=== PATIENT | male | born 1930 | race Caucasian/White ===

== ENCOUNTER 2017-03-12 21:42 | Inpatient (IN) | payer MEDICARE ==
[~2017-03-12] VITALS: Ht 172.7 cm; Wt 102.4 kg
[~2017-03-12 21:42] MED LIST: ATOR20TA42 PO; FELO2.5T PO; FERR324T4 PO; FISH1000 PO; GLUCTAB PO; HYDR-2768 PO; LISI40TA PO; METF-324 PO; TAB-TAB PO
[2017-03-12 22:05] VITALS: BP 179/69; PULSE 60; RESP 18; O2SAT 95
[2017-03-12] MEDS ORDERED: SODIUM CHLOR 0.9% 1000 ML INJ 1,000 ML IV SCH (22:06)
--- NOTE | 2017-03-12 22:06 | PD ---
HPI Chief Complaint: GI Complaint Time Seen by Provider: 21:55 Travel History International Travel<30 days: No Contact w/Intl Traveler<30days: No Traveled to known affect area: No History of Present Illness HPI PATIENT COMPLAINTS OF EPIG AREA PAIN, 11/14, NONRADIATING, ONSET ABOUT 1 WEEK AGO ORIGINALLY....AT FIRST SEEMED TO IMPROVE WITH TUMS, BUT TODAY HE TOOK 5 PEPCID AND DID NOT GET RELIEF...NO DIARRHEA, ONLY HAD A SMALL HARD BM TODAY. PATIENT DENIES ANY MORE ALLEVIATING/AGGRAVATING FACTORS PCP: DR CAPUTO ALL:NKDA PMHX:DM, HTN, HYPERCHOL, UMBILICAL HERNIA, HARD OF HEARING REQUIRES HEARING AID PSHX: UMBILICAL HERNIA REPAIR MANY YEARS AGO PFSH Past Medical History Blood Disorders: No Cancer: No Cardiovascular Problems: Yes High Cholesterol: Yes Diabetes: Yes Diminished Hearing: Yes ([place] Genitourinary: No Hypertension: Yes Immune Disorder: No Musculoskeletal: No Neurologic: No Psychiatric: No Reproductive: No Respiratory: No Past Surgical History Abdominal Surgery: Yes (UMBILICAL HERNIA REPAIR.) Cardiac Surgery: Yes (angioplasty/cardiac cath) Other Surgery: Yes (ANGIOPLASTY-1995.) Social History Alcohol Use: No Tobacco Use: No Substance Use: No Allergies-Medications (Allergen,Severity, Reaction): Coded Allergies: No Known Allergies (Unverified , 03/12/17) Reported Meds & Prescriptions Reported Meds & Active Scripts Active Active Prescriptions or Reported Medications Unobtainable Review of Systems General / Constitutional: No: Fever Eyes: No: Visual changes HENT: No: Headaches Cardiovascular: No: Chest Pain or Discomfort Respiratory: No: Shortness of Breath Gastrointestinal: Positive: Nausea, Abdominal Pain Genitourinary: No: Dysuria Musculoskeletal: No: Pain Skin: No Rash Neurologic: No: Weakness Psychiatric: No: Depression Endocrine: No: Polydipsia Hematologic/Lymphatic: No: Easy Bruising Physical Exam Narrative GENERAL: SKIN: Warm and dry. HEAD: Atraumatic. Normocephalic. EYES: Pupils equal and round. No scleral icterus. No injection or drainage. ENT: No nasal bleeding or discharge. Mucous membranes pink and moist. NECK: Trachea midline. No JVD. CARDIOVASCULAR: Regular rate and rhythm. RESPIRATORY: No accessory muscle use. Clear to auscultation. Breath sounds equal bilaterally. GASTROINTESTINAL: Abdomen OBESE, soft, RUQ/EPIG TTP, NO REBOUND/GUARDING/ RIGIDITY MUSCULOSKELETAL: Extremities without clubbing, cyanosis, or edema. No obvious deformities. NEUROLOGICAL: Awake and alert. No obvious cranial nerve deficits. Motor grossly within normal limits. Five out of 5 muscle strength in the arms and legs. Normal speech. PSYCHIATRIC: Appropriate mood and affect; insight and judgment normal. Data Data Last Documented VS Vital Signs Date Time Temp Pulse Resp B/P (MAP) Pulse Ox O2 Delivery O2 Flow Rate FiO2 03/12/17 23:21 55 16 185/83 (117) 95 Room Air Orders Orders Complete Blood Count With Diff (03/12/17 22:06) Comprehensive Metabolic Panel (03/12/17 22:06) Lipase (03/12/17 22:06) Urinalysis - C+S If Indicated (03/12/17 22:06) Ct Abd/Pel W/O Iv Contrast (03/12/17 22:06) Us Abdomen Gallbladder (03/12/17 ) Iv Access Insert/Monitor (03/12/17 22:06) Ecg Monitoring (03/12/17 22:06) Oximetry (03/12/17 22:06) NPO (03/12/17 22:06) Morphine Inj (Morphine Inj) (03/12/17 22:15) Ondansetron Inj (Zofran Inj) (03/12/17 22:15) Sodium Chlor 0.9% 1000 Ml Inj (Ns 1000 M (03/12/17 22:06) Electrocardiogram (03/12/17 22:06) Ckmb (Isoenzyme) Profile (03/12/17 22:06) Troponin I (03/12/17 22:06) CKMB (03/12/17 22:30) CKMB% (03/12/17 22:30) Metronidazole 500 Mg Inj (Flagyl 500 Mg (03/12/17 23:30) Piperacil-Tazo 3.375 Gm Premix (Zosyn 3. (03/12/17 23:30) Labs Laboratory Tests Test 03/12/17 22:30 White Blood Count 7.4 TH/MM3 Red Blood Count 4.30 MIL/MM3 Hemoglobin 12.8 GM/DL Hematocrit 38.1 % Mean Corpuscular Volume 88.6 FL Mean Corpuscular Hemoglobin 29.8 PG Mean Corpuscular Hemoglobin Concent 33.6 % Red Cell Distribution Width 13.2 % Platelet Count 336 TH/MM3 Mean Platelet Volume 8.4 FL Neutrophils (%) (Auto) 58.2 % Lymphocytes (%) (Auto) 31.9 % Monocytes (%) (Auto) 5.3 % Eosinophils (%) (Auto) 4.1 % Basophils (%) (Auto) 0.5 % Neutrophils # (Auto) 4.3 TH/MM3 Lymphocytes # (Auto) 2.4 TH/MM3 Monocytes # (Auto) 0.4 TH/MM3 Eosinophils # (Auto) 0.3 TH/MM3 Basophils # (Auto) 0.0 TH/MM3 CBC Comment DIFF FINAL Differential Comment Blood Urea Nitrogen 27 MG/DL Creatinine 1.70 MG/DL Random Glucose 125 MG/DL Total Protein 7.5 GM/DL Albumin 3.1 GM/DL Calcium Level 8.9 MG/DL Alkaline Phosphatase 312 U/L Aspartate Amino Transf (AST/SGOT) 237 U/L Alanine Aminotransferase (ALT/SGPT) 204 U/L Total Bilirubin 1.7 MG/DL Sodium Level 135 MEQ/L Potassium Level 3.8 MEQ/L Chloride Level 100 MEQ/L Carbon Dioxide Level 25.8 MEQ/L Anion Gap 9 MEQ/L Estimat Glomerular Filtration Rate 38 ML/MIN Total Creatine Kinase 283 U/L Creatine Kinase MB 1.2 NG/ML Troponin I LESS THAN 0.02 NG/ML Lipase 162 U/L [facility] Medical Decision Making Medical Screen Exam Complete: Yes Emergency Medical Condition: Yes Medical Record Reviewed: Yes Interpretation(s) SINUS CYNTHIA 56, FIRST DEGREE AV BLOCK, NONSPEC STT CHANGES, NO STEMI PATTERN Differential Diagnosis PANCREATITIS V ATYPICAL NE V HEPATITIS V GASTROENTERITIS V COLITIS V DIVERTIC Narrative Course NO EVIDENCE OF PANCREATITIS, NO ELEVATED TROPONIN FOUND...E/O BILIARY OBSTRUCTION, AND E/O CHOLECYSTITIS. PATIENT WILL BE ADMITTED TO [facility], KEPT NPO, GIVEN IV ZOSYN/FLAGYL AND PAIN MEDICATION. Diagnosis Primary Impression: Choledocholithiasis with acute cholecystitis with obstruction Admitting Information Admitting Physician Requests: Admit Scripts Unable to Obtain Active Prescriptions or Reported Meds Red Jerome MD Mar 12, 2017 22:06
[2017-03-12] MEDS ORDERED: MORPHINE SULFATE 4 MG/ML INJ IV PUSH ONE (22:15)
[2017-03-12] MEDS ORDERED: ONDANSETRON HCL 4 MG/2 ML VIAL IVP ONE (22:15)
[2017-03-12 22:33] LABS: AUTOMATED NEUTROPHIL # 4.3 TH/MM3 (1.8-7.7); BASOPHIL % 0.5 % (0.0-2.0); EOSINOPHIL # 0.3 TH/MM3 (0-0.4); EOSINOPHIL % 4.1 % (0.0-4.0); HEMATOCRIT 38.1 % (39.0-51.0); HEMO FLAGS DIFF FINAL; LYMPH % 31.9 % (9.0-44.0); LYMPHOCYTE # 2.4 TH/MM3 (1.0-4.8); MEAN CELL VOLUME 88.6 FL (80.0-100.0); MEAN CORPUSCULAR HEMOGLOBIN 29.8 PG (27.0-34.0); MEAN CORPUSCULAR HGB CONC 33.6 % (32.0-36.0); MONO % 5.3 % (0.0-8.0); NEUT % 58.2 % (16.0-70.0); PLATELET COUNT 336 TH/MM3 (150-450); RED CELL DISTRIBUTION WIDTH 13.2 % (11.6-17.2); WHITE BLOOD COUNT 7.4 TH/MM3 (4.0-11.0)
[2017-03-12 22:41] LABS: CHLORIDE 100 MEQ/L (98-107); POTASSIUM 3.8 MEQ/L (3.5-5.1); SODIUM (NA) 135 MEQ/L (136-145)
[2017-03-12 22:45] LABS: ANION GAP 9 MEQ/L (5-15); BICARBONATE 25.8 MEQ/L (21.0-32.0); BLOOD UREA NITROGEN 27 MG/DL (7-18)
[2017-03-12 22:48] VITALS: O2SAT 96
[2017-03-12 22:48] LABS: ALT (GPT) 204 U/L (12-78); AST (GOT) 237 U/L (15-37); GLOMERULAR FILTRATION RATE 38 ML/MIN (>89)
[2017-03-12 22:50] LABS: TOTAL BILIRUBIN ADULT 1.7 MG/DL (0.2-1.0)
[2017-03-12 22:51] LABS: ALKALINE PHOSPHATASE 312 U/L (45-117); CREATINE KINASE 283 U/L (39-308)
[2017-03-12 23:03] LABS: CKMB 1.2 NG/ML (0.5-3.6)
--- NOTE | 2017-03-12 23:06 | RADRPT ---
EXAM DATE/TIME: 03/12/2017 22:27 [facility] COMPARISON: No previous studies available for comparison. INDICATIONS : Abdominal pain. ORAL CONTRAST: No oral contrast ingested. RADIATION DOSE: 27.84 CTDIvol (mGy) ; High dose protocol; Patient body habitus MEDICAL HISTORY : Hypertension. Hernia, umbilical. SURGICAL HISTORY : Umbilical hernia repair. ENCOUNTER: Initial ACUITY: 1 day PAIN SCALE: 8/10 LOCATION: abdomen TECHNIQUE: Volumetric scanning of the abdomen and pelvis was performed. Using automated exposure control and ad justment of the mA and/or kV according to patient size, radiation dose was kept as low as reasonably achievable to obtain optimal diagnostic quality images. DICOM format image data is available electro nically for review and comparison. FINDINGS: There are multiple gallstones in the region of the distal common bile duct with the largest measuring 8 mm. The common bile duct is prominent in size and likely is obstructed. There is also thickening o f the wall of the gallbladder and pericholecystic fluid and inflammatory change suggesting acute chol ecystitis also. The gallbladder is filled with calcified gallstones. Uncomplicated colonic diverticul osis is noted. No acute diverticulitis is noted. There are tiny 4 mm calcified nonobstructing bilater al renal calculi. No acute obstructive uropathy is noted. There are ventral abdominal wall hernias co ntaining only fat. The appendix is normal. The urinary bladder is unremarkable. Peripheral calcificat ion is noted within the prostate gland posteriorly. CONCLUSION: 1. Multiple gallstones in the region of the distal common bile duct with the largest measuring 8 mm. The common bile duct is prominent in size and likely is obstructed. 2. Thickening of the wall of the gallbladder and pericholecystic fluid and inflammatory change sugges ting acute cholecystitis. Clinical correlation is recommended. 3. Cholelithiasis. 4. Uncomplicated colonic diverticulosis. 5. Calcified nonobstructing bilateral renal calculi. 6. Ventral abdominal wall hernias containing only fat. 7. Posterior peripheral calcification of the prostate gland. Temo Francois MD on March 12, 2017 at 22:58 Board Certified Radiologist. This report was verified electronically.
[2017-03-12 23:21] VITALS: BP 185/83; PULSE 55; RESP 16; O2SAT 95
--- NOTE | 2017-03-12 23:25 | RADRPT ---
EXAM DATE/TIME: 03/12/2017 22:57 [facility] COMPARISON: CT ABDOMEN & PELVIS W/O CONTRAST, March 12, 2017, 22:27. INDICATIONS : Right upper quadrant pain. Abnormal abdomen CT demonstrating cholelithiasis as well as apparent stone s in the distal common bile duct with biliary ductal dilatation. MEDICAL HISTORY : Hypercholesterolemia. Hypertension. Gastroesophageal reflux disease. Diabetes. SURGICAL HISTORY : Angioplasty. Umbilical hernia repair. Cardiac cath. ENCOUNTER: Initial ACUITY: 1 week PAIN SCORE: 6/10 LOCATION: Right upper quadrant MEASUREMENTS: LIVER: 20.3 cm length COMMON DUCT: 10 mm RIGHT KIDNEY: 11.0 x 5.2 x 5.0 cm FINDINGS: LIVER: The liver is enlarged measuring up to 20 cm with diffuse increased echogenicity. There is apparent mi ld central intrahepatic biliary duct dilatation. COMMON DUCT: Prominent measuring up to 10 mm with no intraluminal mass or stone visualized. GALLBLADDER: Multiple echogenic gallstones layering dependently with areas of posterior shadowing. There is mild w all thickening measuring up to 6 mm a small amount of pericholecystic fluid. The patient had a negati ve sonographic Zuñiga's sign. PANCREAS: The visualized portions are within normal limits. RIGHT KIDNEY: No evidence of hydronephrosis, stone, or mass. CONCLUSION: 1. Cholelithiasis with mild gallbladder wall thickening and small amount of pericholecystic fluid. Th ere was no sonographic Zuñiga's sign. 2. Prominent common bile duct measuring 10 mm with no filling defects identified in the visualized po rtion of the duct. The apparent stones in the distal duct could not be visualized. There is mild prom inence of the central intrahepatic biliary system as well. 3. Enlarged liver with hepatic steatosis. Dez Sexton MD on March 12, 2017 at 23:17 Board Certified Radiologist. This report was verified electronically.
[2017-03-12] MEDS ORDERED: metroNIDAZOLE 500 MG INJ 100 ML IV ONE (23:30)
[2017-03-12] MEDS ORDERED: CLON0.1T PO (23:56)
[2017-03-12] MEDS ORDERED: KLOR8TAB PO (23:56)
[2017-03-12] MEDS ORDERED: FENO54TA PO (23:56)
[2017-03-12] MEDS ORDERED: FELO10TA PO (23:56)
[2017-03-12] MEDS ORDERED: GLIM1TAB PO (23:56)
[2017-03-12] MEDS ORDERED: LISI40TA PO (23:56)
[2017-03-12] MEDS ORDERED: ATOR10TA15 PO (23:56)
[2017-03-12] MEDS ORDERED: POTA10TA15 PO (23:56)
[2017-03-12] MEDS ORDERED: TRIA37.5 PO (23:57)
[2017-03-13] VITALS (11 sets, daily range): BP systolic 134–183; BP diastolic 63–94; PULSE 42–62; RESP 16–20; TEMP 97.4–99.2; O2SAT 93–98
[2017-03-13] MEDS ORDERED: MORPHINE SULFATE 2 MG/ML INJ IV PUSH PRN
[2017-03-13] MEDS ORDERED: SODIUM CHLORIDE 0.9% FLUSH 10 ML FLUSH IV FLUSH PRN
[2017-03-13] MEDS ORDERED: GLUCAGON 1 MG/ML VIAL OTHER PRN
[2017-03-13] MEDS ORDERED: PIPERACIL-TAZO 3.375 GM PREMIX 50 ML IV ONE
[2017-03-13] MEDS ORDERED: NALOXONE HCL 0.4 MG/ML AMP IV PUSH PRN
[2017-03-13] MEDS ORDERED: DEXTROSE 50% IN WATER 50 ML VIAL(D50) IV PUSH PRN
[2017-03-13] MEDS: DEXT 5%-NACL 0.45% 1000 ML INJ 1,000 ML IV SCH ×3 (00:12→23:50)
[2017-03-13 00:52] LABS: BLOOD, URINE LARGE (NEG); GLUCOSE,URINE NEG (NEG); KETONE, URINE NEG (NEG); NITRITE,URINE NEG (NEG)
[2017-03-13 00:56] LABS: URINE COLOR YELLOW (YELLW/STRAW)
[2017-03-13 00:57] LABS: BACTERIA, URINE MANY /hpf; COMMENT (UR) CULTURE INDICATED; CULTURE IF INDICATED CULTURE INDICATED; SQUAMOUS EPITHELIAL CELL URINE 0-5 /hpf (0-5); WBC, URINE 15-19 /hpf (0-5)
[2017-03-13] MEDS ORDERED: ENALAPRILAT 2.5 MG/2 ML VIAL IV PUSH PRN (01:45)
[2017-03-13] MEDS: PIPERACIL-TAZO 4.5 GM PREMIX 100 ML IV SCH ×2 (06:04→17:46)
[2017-03-13 06:10] LABS: AUTOMATED NEUTROPHIL # 2.9 TH/MM3 (1.8-7.7); BASOPHIL # 0.1 TH/MM3 (0-0.2); BASOPHIL % 1.7 % (0.0-2.0); EOSINOPHIL # 0.3 TH/MM3 (0-0.4); EOSINOPHIL % 4.7 % (0.0-4.0); HEMATOCRIT 35.1 % (39.0-51.0); HEMO FLAGS DIFF FINAL; LYMPH % 30.3 % (9.0-44.0); LYMPHOCYTE # 1.7 TH/MM3 (1.0-4.8); MEAN CELL VOLUME 88.1 FL (80.0-100.0); MONO % 8.6 % (0.0-8.0); NEUT % 54.7 % (16.0-70.0); PLATELET COUNT 281 TH/MM3 (150-450); RED BLOOD COUNT 3.99 MIL/MM3 (4.50-5.90); RED CELL DISTRIBUTION WIDTH 12.9 % (11.6-17.2); WHITE BLOOD COUNT 5.5 TH/MM3 (4.0-11.0)
[2017-03-13 06:18] LABS: CHLORIDE 104 MEQ/L (98-107); POTASSIUM 3.9 MEQ/L (3.5-5.1); SODIUM (NA) 138 MEQ/L (136-145)
[2017-03-13 06:32] LABS: ALKALINE PHOSPHATASE 265 U/L (45-117); ALT (GPT) 196 U/L (12-78); ANION GAP 9 MEQ/L (5-15); AST (GOT) 236 U/L (15-37); BICARBONATE 24.7 MEQ/L (21.0-32.0); BLOOD UREA NITROGEN 26 MG/DL (7-18); GLOMERULAR FILTRATION RATE 41 ML/MIN (>89); TOTAL BILIRUBIN ADULT 2.1 MG/DL (0.2-1.0)
[2017-03-13] MEDS ORDERED: ONDANSETRON HCL 4 MG/2 ML VIAL IV PUSH PRN (08:45)
[2017-03-13] MEDS ORDERED: ACETAMINOPHEN 325 MG TAB PO PRN (08:45)
[2017-03-13] MEDS: LISINOPRIL 20 MG TAB PO SCH (09:00)
[2017-03-13] MEDS: SODIUM CHLORIDE 0.9% FLUSH 10 ML FLUSH IV FLUSH SCH ×2 (09:00→19:49)
[2017-03-13] MEDS ORDERED: PNEUMOCOCCAL POLYVALENT INJ 25 MCG/0.5 ML SYR IM ONE (09:00)
--- NOTE | 2017-03-13 09:49 | HHI.HP ---
[facility] Manuel Gilliland MD Admission Diagnosis ACUTE CHOLECYSTITIS WITH CHOLEDOCHOLITHIASIS Diagnoses: Travel History International Travel<30 Days: No Contact w/Intl Traveler <30 Da: No Traveled to Known Affected Are: No History of Present Illness 86-year-old male being admitted for suspected common bile duct obstruction. Patient was in his usual state of health until about 2 days ago when he began experiencing epigastrium and right upper quadrant abdominal pain that was sharp and intermittent. The pain had eased up and came back again last night in the evening while he was resting Topamax intensity of 10 out of 10. He took some Tums to no avail and was not able to identify any other exacerbating or alleviating factors. He decided to come to emergency room at that time. He denies any nausea vomiting fevers chills or diarrhea. He thinks that his bowel movements have slightly slowed down from about once a day to about once every 2 days but denies any changes in the consistency of the stool nor does he see any melena or bright red blood per rectum. Patient states he still has gallbladder and that he had an endoscopy or a PillCam study done couple of years ago and he claims they found nothing. He says he has had an appendectomy when he was much younger. He has a history of a upper GI bleed in 2006 likely secondary to some duodenitis and gastritis, stains were negative for H. pylori. Review of Systems Except as stated in HPI: all other systems reviewed are Neg Past Family Social History Past Medical History HTN, upper GI bleed Past Surgical History appendectomy Allergies: Coded Allergies: No Known Allergies (Unverified , 03/12/17) Family History No family history of any colorectal cancers or significant GI issues Social History Denies ever smoking, illicit drug use. Reports very light, occasional, social alcohol use Physical Exam Vital Signs Vital Signs Date Time Temp Pulse Resp B/P (MAP) Pulse Ox O2 Delivery O2 Flow Rate FiO2 03/13/17 08:00 98.3 42 20 134/63 (86) 93 03/13/17 03:27 51 03/13/17 02:21 97.9 62 16 143/71 (95) 98 03/13/17 01:28 52 16 146/77 (100) 95 Room Air 03/13/17 00:48 51 18 183/94 (123) 95 03/12/17 23:21 55 16 185/83 (117) 95 Room Air 03/12/17 22:53 16 03/12/17 22:48 96 Room Air 03/12/17 22:05 60 18 179/69 (105) 95 Room Air Physical Exam VS: Afebrile GENERAL: Middle-aged male, slightly jaundiced, lying in bed, awake, no acute distress SKIN: Warm and dry. EYES: No scleral icterus. No injection or drainage. ENT: No nasal bleeding or discharge. Mucous membranes pink and moist. CARDIOVASCULAR: Regular rate and rhythm. no murmurs RESPIRATORY: No accessory muscle use. Clear to auscultation. Breath sounds equal bilaterally. GASTROINTESTINAL: Abdomen soft, has epigastrium tenderness to palpation as well as over right upper quadrant, all other quadrants are nontender to palpation, no rebound all throughout Extremities: No clubbing, cyanosis, or edema. No obvious deformities. MUSCULOSKELETAL: Extremities without clubbing, cyanosis, or edema. No obvious deformities. grossly intact ROM with 5/5 strength in upper and lower extremities proximally NEUROLOGICAL: Awake and alert. No obvious cranial nerve deficits. No facial droop nor slurred speech noted. PSYCHIATRIC: Appropriate mood and affect; insight and judgment normal. Laboratory Laboratory Tests Test 03/12/17 22:30 03/13/17 00:40 03/13/17 05:35 White Blood Count 7.4 5.5 Red Blood Count 4.30 3.99 Hemoglobin 12.8 11.6 Hematocrit 38.1 35.1 Mean Corpuscular Volume 88.6 88.1 Mean Corpuscular Hemoglobin 29.8 29.0 Mean Corpuscular Hemoglobin Concent 33.6 33.0 Red Cell Distribution Width 13.2 12.9 Platelet Count 336 281 Mean Platelet Volume 8.4 9.3 Neutrophils (%) (Auto) 58.2 54.7 Lymphocytes (%) (Auto) 31.9 30.3 Monocytes (%) (Auto) 5.3 8.6 Eosinophils (%) (Auto) 4.1 4.7 Basophils (%) (Auto) 0.5 1.7 Neutrophils # (Auto) 4.3 2.9 Lymphocytes # (Auto) 2.4 1.7 Monocytes # (Auto) 0.4 0.5 Eosinophils # (Auto) 0.3 0.3 Basophils # (Auto) 0.0 0.1 CBC Comment DIFF FINAL DIFF FINAL Differential Comment Blood Urea Nitrogen 27 26 Creatinine 1.70 1.60 Random Glucose 125 126 Total Protein 7.5 6.2 Albumin 3.1 2.5 Calcium Level 8.9 8.2 Alkaline Phosphatase 312 265 Aspartate Amino Transf (AST/SGOT) 237 236 Alanine Aminotransferase (ALT/SGPT) 204 196 Total Bilirubin 1.7 2.1 Sodium Level 135 138 Potassium Level 3.8 3.9 Chloride Level 100 104 Carbon Dioxide Level 25.8 24.7 Anion Gap 9 9 Estimat Glomerular Filtration Rate 38 41 Total Creatine Kinase 283 Creatine Kinase MB 1.2 Troponin I LESS THAN 0.02 Lipase 162 174 Urine Color YELLOW Urine Turbidity CLOUDY Urine pH 6.0 Urine Specific [place] 1.020 Urine Protein 100 Urine Glucose (UA) NEG Urine Ketones NEG Urine Occult Blood LARGE Urine Nitrite NEG Urine Bilirubin NEG Urine Leukocyte Esterase TRACE Urine RBC 20-24 Urine WBC 15-19 Urine Squamous Epithelial Cells 0-5 Urine Bacteria MANY Microscopic Urinalysis Comment CULTURE INDICATED Date/Time Source Procedure Growth Status 03/13/17 00:40 Urine Clean Catch Urine Culture Pending Received Result Diagram: 03/13/17 0535 03/13/17 0535 Imaging Last Impressions Abdomen/Pelvis CT 03/12/172205 Signed Impressions: Service Date/Time: Sunday, March 12, 2017 22:27 - CONCLUSION: 1. Multiple gallstones in the region of the distal common bile duct with the largest measuring 8 mm. The common bile duct is prominent in size and likely is obstructed. 2. Thickening of the wall of the gallbladder and pericholecystic fluid and inflammatory change suggesting acute cholecystitis. Clinical correlation is recommended. 3. Cholelithiasis. 4. Uncomplicated colonic diverticulosis. 5. Calcified nonobstructing bilateral renal calculi. 6. Ventral abdominal wall hernias containing only fat. 7. Posterior peripheral calcification of the prostate gland. Temo Francois MD Gall Bladder Ultrasound 03/12/17 0000 Signed Impressions: Service Date/Time: Sunday, March 12, 2017 22:57 - CONCLUSION: 1. Cholelithiasis with mild gallbladder wall thickening and small amount of pericholecystic fluid. There was no sonographic Zuñiga's sign. 2. Prominent common bile duct measuring 10 mm with no filling defects identified in the visualized portion of the duct. The apparent stones in the distal duct could not be visualized. There is mild prominence of the central intrahepatic biliary system as well. 3. Enlarged liver with hepatic steatosis. MD Glen Ng VTE Risk Assessment Caprini VTE Risk Assessment: Mod/High Risk (score >= 2) Caprini Risk Assessment Model Point Value = 1 Point Value = 2 Point Value = 3 Point Value = 5 Age 41-60 Minor surgery BMI > 25 kg/m2 Swollen legs Varicose veins or History of unexplained or recurrent spontaneous Oral contraceptives or hormone replacement Sepsis (< 1 month) Serious lung disease, including pneumonia (< 1 month) Abnormal pulmonary function Acute myocardial infarction Congestive heart failure (< 1 month) History of inflammatory bowel disease Medical patient at bed rest Age 61-74 Arthroscopic surgery Major open surgery (> 45 min) Laparoscopic surgery (> 45 min) Malignancy Confined to bed (> 72 hours) Immobilizing plaster cast Central venous access Age >= 75 History of VTE Family history of VTE Factor V Leiden Prothrombin [id number] Lupus anticoagulant Anticardiolipin antibodies Elevated serum homocysteine Heparin-induced thrombocytopenia Other congenital or acquired thrombophilia Stroke (< 1 month) Elective arthroplasty Hip, pelvis, or leg fracture Acute spinal cord injury (< 1 month) Prophylaxis Regimen Total Risk Factor Score Risk Level Prophylaxis Regimen 0-1 Low Early ambulation 2 Moderate Order ONE of the following: *Sequential Compression Device (SCD) *Heparin 5000 units SQ BID 3-4 Higher Order ONE of the following medications: *Heparin 5000 units SQ TID *Enoxaparin/Lovenox 40 mg SQ daily (WT < 150 kg, CrCl > 30 mL/min) *Enoxaparin/Lovenox 30 mg SQ daily (WT < 150 kg, CrCl > 10-29 mL/min) *Enoxaparin/Lovenox 30 mg SQ BID (WT < 150 kg, CrCl > 30 mL/min) AND/OR *Sequential Compression Device (SCD) 5 or more Highest Order ONE of the following medications: *Heparin 5000 units SQ TID (Preferred with Epidurals) *Enoxaparin/Lovenox 40 mg SQ daily (WT < 150 kg, CrCl > 30 mL/min) *Enoxaparin/Lovenox 30 mg SQ daily (WT < 150 kg, CrCl > 10-29 mL/min) *Enoxaparin/Lovenox 30 mg SQ BID (WT < 150 kg, CrCl > 30 mL/min) AND *Sequential Compression Device (SCD) Assessment and Plan Assessment and Plan Acute choledocholithiasis with suspected obstruction - CT and GBUS showing CBD dilation at least 8 to 10 mm - Gastroenterology has already been contacted, transferring patient to [facility] for possible ERCP this a.m. - Continue Zosyn - Continue IV fluids, maintain nothing by mouth except by mouth meds status - repeat LFTs, bili elevated more this AM - I attempted to and been only reviewed the CT scan myself but soft was not loading at this time. We'll try again later. - IV pain meds, monitor resp status. RIVER - Possibly severe to dehydration and decreased by mouth intake - Improving since admission, repeat BMP in a.m. HTN - resume home BP meds tonight after ERCP - continue vasotec prn hi BPs Given likelihood of procedure will stick with SCDs for DVT prevention. Addendum: My independent review the CT scan shows the patient has at least moderate constipation, will start MiraLAX to minimize any worsening of his abdominal pain simply due to increased intra-abdominal pressure from the stool. Physician Certification 2 Midnight Certification Type: Admission for Inpatient Services Order for Inpatient Services The services are ordered in accordance with Medicare regulations or non- Medicare payer requirements, as applicable. In the case of services not specified as inpatient-only, they are appropriately provided as inpatient services in accordance with the 2-midnight benchmark. Estimated LOS (days): 2 2 days is the estimated time the patient will need to remain in the hospital, assuming treatment plan goals are met and no additional complications. Post-Hospital Plan: [facility] Errol Euceda MD Mar 13, 2017 09:49
[2017-03-13 10:12] LABS: INTERNATIONAL NORMALIZED RATIO 1.1 RATIO; PROTHROMBIN TIME - PATIENT 11.6 SEC (9.8-11.6)
--- NOTE | 2017-03-13 11:58 | PD.CONS ---
cc: Marissa Phillips MD HPI Service General Surgery Consult Requested By Dr. Jerome Reason for Consult RUQ pain Cholelithiasis Primary Care Physician Manuel Gilliland MD History of Present Illness This is an 86 year old male with a past medical history of hypertension and high cholesterol who presents with a 5 day history of RUQ and epigastric pain. He denies any nausea or vomiting. He is not able to associate the pain with food intolerance. He does report some mild constipation. A CT abd/pelvis was obtained which showed cholelithiasis with a dilated common bile duct. The patient has a normal WBC. He does have elevated liver enzymes including a total bilirubin of 2.1. A GI consultation has been requested and arrangements are being made for the patient to be transferred to [facility] for ERCP. A General Surgery consultation has been requested. Review of Systems Constitutional: COMPLAINS OF: Change in appetite, DENIES: Fatigue, Chills Endocrine: DENIES: Polydipsia, Polyuria, Polyphagia Ears, nose, mouth, throat: DENIES: Hearing loss Respiratory: DENIES: Cough Cardiovascular: DENIES: Chest pain, Palpitations Gastrointestinal: COMPLAINS OF: Abdominal pain (RUQ pain), Constipation, DENIES : Nausea, Vomiting Genitourinary: DENIES: Urgency Musculoskeletal: DENIES: Joint pain Integumentary: DENIES: Abnormal pigmentation Hematologic/lymphatic: DENIES: Bruising Immunologic/allergic: DENIES: Eczema Neurologic: DENIES: Abnormal gait, Headache Psychiatric: DENIES: Confusion, Mood changes, Depression Past Family Social History Past Medical History Hypertension High cholesterol Past Surgical History Umbilical hernia repair Appendectomy Reported Medications Fenofibrate Atorvastin Clonidine Felodipine Lisinopril Potassium Triamterene- HCTZ Glimepiride Allergies: Coded Allergies: No Known Allergies (Unverified , 03/14/17) Active Ordered Medications Current Medications Medications (Trade) Dose Ordered Sig/Audrey Route Start Time Stop Time Status Last Admin (NS Flush) 2 ml UNSCH PRN IV FLUSH 03/13/17 00:00 (NS Flush) 2 ml BID IV FLUSH 03/13/17 09:00 (Narcan Inj) 0.4 mg UNSCH PRN IV PUSH 03/13/17 00:00 Piperacillin Sod/ Tazobactam Sod 100 ml @ 200 mls/hr Q6H IV 03/13/17 06:00 03/13/17 06:04 Dextrose/Sodium Chloride 1,000 ml @ 84 mls/hr [id number] IV 03/13/17 00:00 03/13/17 00:12 (D50w (Vial) Inj) 50 ml UNSCH PRN IV PUSH 03/13/17 00:00 (Glucagon Inj) 1 mg UNSCH PRN OTHER 03/13/17 00:00 (Morphine Inj) 2 mg Q3H PRN IV PUSH 03/13/17 00:00 (Prinivil) 40 mg DAILY PO 03/13/17 09:00 (Vasotec Inj) 2.5 mg Q6H PRN IV PUSH 03/13/17 01:45 (Tylenol) 650 mg Q4H PRN PO 03/13/17 08:45 (Zofran Inj) 4 mg Q6H PRN IV PUSH 03/13/17 08:45 (Lipitor) 10 mg HS PO 03/13/17 21:00 (Catapres) 0.1 mg BID PO 03/13/17 21:00 (KCl) 8 meq DAILY PO 03/14/17 09:00 (Maxzide 37.5-25 Mg) 1 tab DAILY PO 03/14/17 09:00 (Norvasc) 10 mg DAILY PO 03/14/17 09:00 (Tricor) 96 mg HS PO 03/13/17 21:00 Family History Noncontributory Social History Denies tobacco use + ETOH use; only on special occasions; not daily Denies illicit drug use Lives in an [place]. Does not drive. Daughter lives locally in [place]. Physical Exam Vital Signs Vital Signs Date Time Temp Pulse Resp B/P (MAP) Pulse Ox O2 Delivery O2 Flow Rate FiO2 03/13/17 08:00 98.3 42 20 134/63 (86) 93 03/13/17 03:27 51 03/13/17 02:21 97.9 62 16 143/71 (95) 98 03/13/17 01:28 52 16 146/77 (100) 95 Room Air 03/13/17 00:48 51 18 183/94 (123) 95 03/12/17 23:21 55 16 185/83 (117) 95 Room Air 03/12/17 22:53 16 03/12/17 22:48 96 Room Air 03/12/17 22:05 60 18 179/69 (105) 95 Room Air Physical Exam GENERAL: Pleasant 86 year old male resting in bed in no acute distress. SKIN: Warm and dry. HEAD: Atraumatic. Normocephalic. EYES: Pupils equal and round. No scleral icterus. No injection or drainage. ENT: No nasal bleeding or discharge. Mucous membranes pink and moist. NECK: Trachea midline. CARDIOVASCULAR: Regular rate and rhythm. RESPIRATORY: No accessory muscle use. Clear to auscultation. Breath sounds equal bilaterally. GASTROINTESTINAL: Abdomen soft, nondistended. RUQ abdominal pain with palpation. Obese abdomen. Well healed scar inferior to umbilicus. No obvious hernias. MUSCULOSKELETAL: Extremities without clubbing, cyanosis, or edema. No obvious deformities. NEUROLOGICAL: Awake and alert. No obvious cranial nerve deficits. Motor grossly within normal limits. Five out of 5 muscle strength in the arms and legs. Normal speech. PSYCHIATRIC: Appropriate mood and affect; insight and judgment normal. Laboratory Laboratory Tests Test 03/12/17 22:30 03/13/17 00:40 03/13/17 05:35 03/13/17 09:50 White Blood Count 7.4 5.5 Red Blood Count 4.30 3.99 Hemoglobin 12.8 11.6 Hematocrit 38.1 35.1 Mean Corpuscular Volume 88.6 88.1 Mean Corpuscular Hemoglobin 29.8 29.0 Mean Corpuscular Hemoglobin Concent 33.6 33.0 Red Cell Distribution Width 13.2 12.9 Platelet Count 336 281 Mean Platelet Volume 8.4 9.3 Neutrophils (%) (Auto) 58.2 54.7 Lymphocytes (%) (Auto) 31.9 30.3 Monocytes (%) (Auto) 5.3 8.6 Eosinophils (%) (Auto) 4.1 4.7 Basophils (%) (Auto) 0.5 1.7 Neutrophils # (Auto) 4.3 2.9 Lymphocytes # (Auto) 2.4 1.7 Monocytes # (Auto) 0.4 0.5 Eosinophils # (Auto) 0.3 0.3 Basophils # (Auto) 0.0 0.1 CBC Comment DIFF FINAL DIFF FINAL Differential Comment Blood Urea Nitrogen 27 26 Creatinine 1.70 1.60 Random Glucose 125 126 Total Protein 7.5 6.2 Albumin 3.1 2.5 Calcium Level 8.9 8.2 Alkaline Phosphatase 312 265 Aspartate Amino Transf (AST/SGOT) 237 236 Alanine Aminotransferase (ALT/SGPT) 204 196 Total Bilirubin 1.7 2.1 Sodium Level 135 138 Potassium Level 3.8 3.9 Chloride Level 100 104 Carbon Dioxide Level 25.8 24.7 Anion Gap 9 9 Estimat Glomerular Filtration Rate 38 41 Total Creatine Kinase 283 Creatine Kinase MB 1.2 Troponin I LESS THAN 0.02 Lipase 162 174 Urine Color YELLOW Urine Turbidity CLOUDY Urine pH 6.0 Urine Specific Lottie 1.020 Urine Protein 100 Urine Glucose (UA) NEG Urine Ketones NEG Urine Occult Blood LARGE Urine Nitrite NEG Urine Bilirubin NEG Urine Leukocyte Esterase TRACE Urine RBC 20-24 Urine WBC 15-19 Urine Squamous Epithelial Cells 0-5 Urine Bacteria MANY Microscopic Urinalysis Comment CULTURE INDICATED Prothrombin Time 11.6 Prothromb Time International Ratio 1.1 Activated Partial Thromboplast Time 30.0 Date/Time Source Procedure Growth Status 03/13/17 00:40 Urine Clean Catch Urine Culture Pending Received Result Diagram: 03/13/17 0535 03/13/17 0535 Imaging Last 48 hours Impressions Abdomen/Pelvis CT 03/12/172205 Signed Impressions: Service Date/Time: Sunday, March 12, 2017 22:27 - CONCLUSION: 1. Multiple gallstones in the region of the distal common bile duct with the largest measuring 8 mm. The common bile duct is prominent in size and likely is obstructed. 2. Thickening of the wall of the gallbladder and pericholecystic fluid and inflammatory change suggesting acute cholecystitis. Clinical correlation is recommended. 3. Cholelithiasis. 4. Uncomplicated colonic diverticulosis. 5. Calcified nonobstructing bilateral renal calculi. 6. Ventral abdominal wall hernias containing only fat. 7. Posterior peripheral calcification of the prostate gland. Temo Francois MD Gall Bladder Ultrasound 03/12/17 0000 Signed Impressions: Service Date/Time: Sunday, March 12, 2017 22:57 - CONCLUSION: 1. Cholelithiasis with mild gallbladder wall thickening and small amount of pericholecystic fluid. There was no sonographic Zuñiga's sign. 2. Prominent common bile duct measuring 10 mm with no filling defects identified in the visualized portion of the duct. The apparent stones in the distal duct could not be visualized. There is mild prominence of the central intrahepatic biliary system as well. 3. Enlarged liver with hepatic steatosis. Dez Sexton MD Assessment and Plan Assessment and Plan 86 year old male with cholelithiasis; dilated common bile duct; elevated liver enzymes -NPO -Plan for transfer to [facility] for ERCP -Labs in AM -Hold any anticoagulation at this time -OOB as tolerated -Will evaluate timing for laparoscopic cholecystectomy based on ERCP findings and laboratory results -Thank you for this consult; We will continue to follow Agree with Ms Desai. Needs ERCP to clear CBD. Will consider lap mervin possible open in next 24-48 hours if labs normalize and patient improves. MARISSA PHILLIPS MD FACS Discussed Condition With Dr. Mariusz Cody (daughter) via telephone Nieves Desai Mar 13, 2017 11:58 Marissa Phillips MD Mar 14, 2017 13:09
[2017-03-13] MEDS ORDERED: ePHEDrine/NS 25 MG/5 ML SYR IV ONE (12:00)
[2017-03-13] MEDS ORDERED: LIDOCAINE HCL 1% PF 5 ML SYRINGE OTHER ONE (12:00)
[2017-03-13] MEDS ORDERED: PROPOFOL 200 MG/20 ML AMP IV ONE (12:00)
[2017-03-13] MEDS ORDERED: ROCURONIUM INJ 50 MG/5 ML SYRINGE IV PUSH ONE (12:00)
[2017-03-13] MEDS ORDERED: NEOSTIGMINE 5 MG/5 ML SYRINGE IV PUSH ONE (12:00)
[2017-03-13] MEDS ORDERED: ONDANSETRON HCL 4 MG/2 ML VIAL IV PUSH ONE (12:00)
[2017-03-13] MEDS ORDERED: GLYCOPYRROLATE 1 MG/5 ML SYRINGE IV PUSH ONE (12:00)
[2017-03-13] MEDS ORDERED: SUGAMMADEX SODIUM 200 MG/2 ML VIAL IV PUSH ONE ×2 (14:20)
--- NOTE | 2017-03-13 14:22 | GIPROC ---
[facility] [address]. [facility] [place], [address] ERCP PROCEDURE REPORT EXAM DATE: 03/13/2017 PATIENT NAME: Kian Rios MR #: [id number] BIRTHDATE: 1930 ATTENDING: Sangeetha Ortega MD ORDER #: [id number] BRAZER PRODUCTION LINE: Pete Vásquez and Belen Leavitt STATUS: inpatient INDICATIONS: The patient is a 86 yr old male here for an ERCP due to abdominal pain of suspected biliary origin, abnormal abdominal CT, abnormal abdominal ultrasound, and abnormal liver function test PROCEDURE PERFORMED: ERCP with sphincterotomy/papillotomy ERCP with removal of calculus/calculi ERCP with stent placement MEDICATIONS: None and Per Anesthesia. CONSENT: The patient understands the risks and benefits of the procedure and understands that these risks include, but are not limited to: sedation, allergic reaction, infection, perforation and/or bleeding. Alternative means of evaluation and treatment include, among others: physical exam, x-rays, and/or surgical intervention. The patient elects to proceed with this endoscopic procedure. medical equipment was checked for proper function. Hand hygiene and appropriate measures for infection prevention was taken. After the risks, benefits and alternatives of the procedure were thoroughly explained, Informed was verified, confirmed and timeout was successfully executed by the treatment team. With the patient in left semi-prone position, medications were administered intravenously.The Pentax [id number] was passed from the mouth into the esophagus and further advanced from the esophagus into the stomach. From stomach scope was directed to the second portion of the duodenum. Major papilla was aligned with the duodenoscope. The scope position was confirmed fluoroscopically. Rest of the findings/therapeutics are given below. The scope was then completely withdrawn from the patient and the procedure completed. The pulse, BP, and O2 saturation were monitored and documented by the physician and the nursing staff throughout the entire procedure. The patient was cared for as planned according to standard protocol. The patient was then discharged to recovery in stable condition and with appropriate post procedure care. The ampulla was located the second portion of the duodenum. Bile was seen draining from the ampulla. Multiple stones were seen in the common bile duct. Multiple stones in CBD, CBD dilated to 8mm. Sphincterotomy, balloon sweep with removal of multiple stones and debris. 8.5 x 9 cm stent placed. ADVERSE EVENT: There were no complications. IMPRESSIONS: 1. Bile was seen draining from the ampulla 2. Multiple stones in CBD, CBD dilated to 8mm. Sphincterotomy, balloon sweep with removal of multiple stones and debris. 8.5 x 9 cm stent placed RECOMMENDATIONS: 1. Cholecystectomy 2. Liver enzymes REPEAT EXAM: Return 3 months ERCP Sangeetha Ortega MD eSigned: Sangeetha Ortega MD 03/13/2017 2:22 PM cc: PATIENT NAME: Kian Rios MR#: [id number]
[2017-03-13] MEDS ORDERED: DO NOT ADM ANY ANTICOAGULANT DRUGS PRN (14:23)
--- NOTE | 2017-03-13 15:58 | RADRPT ---
EXAM DATE/TIME: 03/13/2017 13:58 [facility] COMPARISON: No previous studies available for comparison. INDICATIONS : Removal of gall stones and stent placement FLUORO TIME: 1.2 minutes IMAGE COUNT: 2 CONTRAST: Instilled by Ordering Physician MEDICAL HISTORY : Hypercholesterolemia. Hypertension. Gastroesophageal reflux disease. Diabetes SURGICAL HISTORY : Angioplasty. Umbilical hernia repair. Cardiac cath. ENCOUNTER: Initial ACUITY: 1 week PAIN SCORE: Non-responsive. LOCATION: Abdomen FINDINGS: An ERCP was performed by the ordering physician. The images demonstrate 2 images were submitted. First image shows contrast in the intrahepatic biliar y tree. There is some irregularity in the common hepatic duct which could represent filling defects w ith stones. Second image shows some filling of the intrahepatic ducts with placement of a biliary alejandra nt. CONCLUSION: ERCP as above. Claude Guo MD on March 13, 2017 at 15:55 Board Certified Radiologist. This report was verified electronically.
--- NOTE | 2017-03-13 16:23 | EKG ---
Date Performed: 03/12/2017 Time Performed: 22:21:12 PTAGE: 86 years EKG: SINUS BRADYCARDIA WITH FIRST DEGREE AV BLOCK MARKED LEFT AXIS DEVIATION POSSIBLE RIGHT VENT RICULAR CONDUCTION DELAY NONSPECIFIC T-WAVE ABNORMALITY ABNORMAL ECG PREVIOUS TRACING : 07/09/2007 06.02 DOCTOR: Danny Napoles Interpretating Date/Time 03/13/2017 16:22:00
[2017-03-13] MEDS: POLYETHYLENE GLYCOL 17 GM PKG PO SCH (18:45)
[2017-03-13] MEDS: cloNIDine HCL 0.1 MG TAB PO SCH (19:49)
[2017-03-13] MEDS: FENOFIBRATE 48 MG TAB PO SCH (19:50)
[2017-03-13] MEDS ORDERED: ATORVASTATIN 10 MG TAB PO SCH (21:00)
[2017-03-14] VITALS (8 sets, daily range): BP systolic 151–173; BP diastolic 70–81; PULSE 45–58; RESP 18–20; TEMP 97.9–99.2; O2SAT 88–93
[2017-03-14] MEDS: PIPERACIL-TAZO 4.5 GM PREMIX 100 ML IV SCH ×3 (00:10→12:00)
--- NOTE | 2017-03-14 07:56 | MB ---
cc: AMNA LI M.D., DAVID M.D. DATE OF CONSULTATION: 03/13/[address] Manuel Gilliland. REASON FOR CONSULTATION Cholelithiasis, choledocholithiasis, abdominal pain, elevated liver function tests. HISTORY OF PRESENT ILLNESS Mr. Rios is a 86-year-old gentleman, basically presents with right upper quadrant pain which has since resolved. Symptoms have been present for two days. Workup in the hospital included a gallbladder and CT scan suggests cholelithiasis and choledocholithiasis. The patient himself currently denies any symptoms. REVIEW OF SYSTEMS No abdominal pain, no nausea, vomiting. He is icteric. PAST MEDICAL HISTORY 1. Hypertension. 2. History of GI bleeding. PAST SURGICAL HISTORY Appendectomy in the past. SOCIAL HISTORY No tobacco, no alcohol. Lives in [facility]. PHYSICAL EXAMINATION GENERAL: Reveals a well-nourished man in no apparent distress. VITAL SIGNS: Stable. HEENT: Icteric sclerae. CHEST: Bilateral air entry with rales. ABDOMEN: Abdomen is soft, obese, tenderness in the right upper quadrant. ELECTRIC SCOOP OPERATOR: Exam is nonfocal. RECTAL: Exam deferred at this time. LABORATORY DATA Labs reveal a creatinine of 1.6, total bilirubin 2.1, AST 236, ALT 196, lipase 174. White cell count 5.5, hemoglobin 11.6. IMAGING STUDIES CT of the abdomen and pelvis shows cholelithiasis, choledocholithiasis, cholecystitis, diverticulosis. Ultrasound also shows cholelithiasis with gallbladder wall thickening, prominent common bile duct at 10 mm, also hepatic steatosis. MEDICATIONS Current medications include: 1. Maxzide. 2. Norvasc. 3. Lipitor. 4. Catapres. 5. Tricor. 6. Prinivil. 7. Zosyn. IMPRESSION Cholelithiasis, choledocholithiasis. RECOMMENDATIONS N.p.o. with IV fluid, IV antibiotics. Continue to monitor labs. ERCP planned for today. Surgical evaluation recommended. Will follow with you. Thank you for this referral. Amna Li MD HZ/TLL /1:32 PM /7:52 AM
[2017-03-14] MEDS ORDERED: POTASSIUM CHLORIDE 10 MEQ CONTROLLED RELEASE TAB PO SCH (08:00)
[2017-03-14 08:30] LABS: AUTOMATED NEUTROPHIL # 4.1 TH/MM3 (1.8-7.7); BASOPHIL # 0.1 TH/MM3 (0-0.2); BASOPHIL % 1.1 % (0.0-2.0); EOSINOPHIL # 0.5 TH/MM3 (0-0.4); EOSINOPHIL % 6.5 % (0.0-4.0); HEMATOCRIT 35.6 % (39.0-51.0); HEMO FLAGS DIFF FINAL; LYMPH % 29.3 % (9.0-44.0); LYMPHOCYTE # 2.1 TH/MM3 (1.0-4.8); MEAN CELL VOLUME 88.4 FL (80.0-100.0); MEAN CORPUSCULAR HEMOGLOBIN 30.4 PG (27.0-34.0); MEAN CORPUSCULAR HGB CONC 34.4 % (32.0-36.0); NEUT % 57.1 % (16.0-70.0); PLATELET COUNT 319 TH/MM3 (150-450); RED BLOOD COUNT 4.03 MIL/MM3 (4.50-5.90); WHITE BLOOD COUNT 7.2 TH/MM3 (4.0-11.0)
[2017-03-14 08:55] LABS: ANION GAP 7 MEQ/L (5-15); AST (GOT) 104 U/L (15-37); BICARBONATE 26.8 MEQ/L (21.0-32.0); BLOOD UREA NITROGEN 19 MG/DL (7-18); CHLORIDE 103 MEQ/L (98-107); GLOMERULAR FILTRATION RATE 36 ML/MIN (>89); POTASSIUM 3.7 MEQ/L (3.5-5.1); SODIUM (NA) 137 MEQ/L (136-145)
[2017-03-14 08:56] LABS: ALT (GPT) 136 U/L (12-78)
[2017-03-14 08:58] LABS: ALKALINE PHOSPHATASE 221 U/L (45-117); TOTAL BILIRUBIN ADULT 1.1 MG/DL (0.2-1.0)
[2017-03-14] MEDS: SODIUM CHLORIDE 0.9% FLUSH 10 ML FLUSH IV FLUSH SCH ×2 (09:00→20:34)
[2017-03-14] MEDS: POLYETHYLENE GLYCOL 17 GM PKG PO SCH (09:00)
[2017-03-14] MEDS: TRIAMTERENE/HCTZ 37.5 MG/25 MG TAB PO SCH (09:00)
--- NOTE | 2017-03-14 09:25 | HHI.PR ---
Subjective Remarks seen with daughter at bedside had a good night- no pain, nausea or vomiting Objective Vitals Vital Signs Date Time Temp Pulse Resp B/P (MAP) Pulse Ox O2 Delivery O2 Flow Rate FiO2 03/14/17 06:45 160/70 (100) 03/14/17 05:40 98.3 51 18 173/81 (111) 90 03/14/17 04:18 52 03/14/17 04:00 Nasal Cannula 2.00 03/14/17 00:00 Nasal Cannula 2.00 03/13/17 23:55 57 03/13/17 23:23 98.2 50 18 168/81 (110) 93 03/13/17 20:02 56 03/13/17 20:00 Nasal Cannula 2.00 03/13/17 19:28 97.7 55 18 156/75 (102) 94 03/13/17 15:38 97.4 43 20 147/68 (94) 93 03/13/17 15:15 47 16 137/65 (89) 93 Nasal Cannula 2 03/13/17 15:00 52 16 128/61 (83) 93 Nasal Cannula 2 03/13/17 14:45 50 16 110/77 (88) 95 Nasal Cannula 2 03/13/17 14:30 60 16 128/59 (82) 96 Nasal Cannula 2 03/13/17 14:24 98.6 64 16 126/58 (80) 93 Nasal Cannula 2 03/13/17 13:00 41 17 150/67 (94) 96 03/13/17 12:20 95 Nasal Cannula 2 03/13/17 12:15 97.8 42 17 152/85 (107) 92 03/13/17 12:00 99.2 43 20 160/73 (102) 95 I/O 03/13/17 03/13/17 03/13/17 03/14/17 03/14/17 03/14/17 07:00 15:00 23:00 07:00 15:00 23:00 Intake Total 1045 ml 400 ml 996 ml Output Total 225 ml 950 ml Balance 820 ml 400 ml 46 ml Intake Oral 90 ml IV Total 1045 ml 906 ml Other 400 ml Output Urine Total 225 ml 950 ml # Voids 3 2 # Bowel Movements 1 0 Result Diagram: 03/14/1748 03/14/17 0748 Imaging Last Impressions GI Procedure 03/13/17 0000 Signed Impressions: Service Date/Time: March 13:58 - CONCLUSION: ERCP as above. Claude Guo MD Abdomen/Pelvis CT 03/12/176 Signed Impressions: Service Date/Time: Sunday, March 12, 2017 22:27 - CONCLUSION: 1. Multiple gallstones in the region of the distal common bile duct with the largest measuring 8 mm. The common bile duct is prominent in size and likely is obstructed. 2. Thickening of the wall of the gallbladder and pericholecystic fluid and inflammatory change suggesting acute cholecystitis. Clinical correlation is recommended. 3. Cholelithiasis. 4. Uncomplicated colonic diverticulosis. 5. Calcified nonobstructing bilateral renal calculi. 6. Ventral abdominal wall hernias containing only fat. 7. Posterior peripheral calcification of the prostate gland. Temo Francois MD Gall Bladder Ultrasound 03/12/17 0000 Signed Impressions: Service Date/Time: Sunday, March 12, 2017 22:57 - CONCLUSION: 1. Cholelithiasis with mild gallbladder wall thickening and small amount of pericholecystic fluid. There was no sonographic Zuñiga's sign. 2. Prominent common bile duct measuring 10 mm with no filling defects identified in the visualized portion of the duct. The apparent stones in the distal duct could not be visualized. There is mild prominence of the central intrahepatic biliary system as well. 3. Enlarged liver with hepatic steatosis. Dez Sexton MD Objective Remarks awake and alert, oriented c3 anicteric lungs - no rales or wheezes regular rhythma abdomen- flabby, soft,nontender, no guarding extremities- SCDs in place neuro exam- unremarkable Procedures 03/13- ERCP with sphincterotomy and stent placed A/P Assessment and Plan 86 years old male Acute choledocholithiasis S/P ERCP with sphincterotomy and stent placement 03/13 - GI ff - Continue Zosyn - Continue IV fluids, maintain nothing by mouth except by mouth meds status - LFTs gradually trending down. 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
[2017-03-14] MEDS: POTASSIUM CHLORIDE 8 MEQ CONTROLLED RELEASE TAB PO SCH (09:34)
[2017-03-14] MEDS: cloNIDine HCL 0.1 MG TAB PO SCH ×2 (09:34→20:33)
[2017-03-14] MEDS: LISINOPRIL 20 MG TAB PO SCH (09:43)
[2017-03-14] MEDS ORDERED: ACETAMINOPHEN 1000 MG/100 ML 100 ML IV ONE (10:07)
[2017-03-14] MEDS ORDERED: BUPIVACAINE/EPINEPHRINE 0.25% PF 30 ML VIAL ONE (10:08)
[2017-03-14] MEDS: DEXT 5%-NACL 0.45% 1000 ML INJ 1,000 ML IV SCH ×2 (11:45→20:39)
[2017-03-14] MEDS ORDERED: DO NOT ADM ANY ANTICOAGULANT DRUGS PRN (12:58)
--- NOTE | 2017-03-14 14:32 | HHI.GIFU ---
Subjective Remarks off floor for Chel Black Mar 14, 2017 14:32
[2017-03-14] MEDS: PIPERACIL-TAZO 3.375 GM PREMIX 50 ML IV SCH ×2 (16:15→22:41)
[2017-03-14] MEDS: FENOFIBRATE 48 MG TAB PO SCH (20:33)
[2017-03-14] MEDS ORDERED: SUGAMMADEX SODIUM 200 MG/2 ML VIAL IV PUSH ONE ×2 (22:44)
[2017-03-15] VITALS (8 sets, daily range): BP systolic 143–168; BP diastolic 65–74; PULSE 46–62; RESP 16–18; TEMP 97.3–98.3; O2SAT 90–93
[2017-03-15] MEDS: PIPERACIL-TAZO 3.375 GM PREMIX 50 ML IV SCH ×3 (03:20→20:38)
[2017-03-15 07:24] LABS: HEMATOCRIT 36.7 % (39.0-51.0); MEAN CELL VOLUME 88.2 FL (80.0-100.0); MEAN CORPUSCULAR HEMOGLOBIN 30.2 PG (27.0-34.0); MEAN CORPUSCULAR HGB CONC 34.3 % (32.0-36.0); PLATELET COUNT 348 TH/MM3 (150-450); RED BLOOD COUNT 4.16 MIL/MM3 (4.50-5.90); RED CELL DISTRIBUTION WIDTH 13.8 % (11.6-17.2); REVIEW FLAG FINAL; WHITE BLOOD COUNT 8.9 TH/MM3 (4.0-11.0)
[2017-03-15 07:47] LABS: ANION GAP 9 MEQ/L (5-15); AST (GOT) 96 U/L (15-37); BICARBONATE 23.9 MEQ/L (21.0-32.0); BLOOD UREA NITROGEN 23 MG/DL (7-18); CHLORIDE 105 MEQ/L (98-107); GLOMERULAR FILTRATION RATE 30 ML/MIN (>89); POTASSIUM 4.2 MEQ/L (3.5-5.1); SODIUM (NA) 138 MEQ/L (136-145)
[2017-03-15 07:48] LABS: ALT (GPT) 119 U/L (12-78)
[2017-03-15 07:50] LABS: ALKALINE PHOSPHATASE 173 U/L (45-117); TOTAL BILIRUBIN ADULT 0.8 MG/DL (0.2-1.0)
[2017-03-15] MEDS: cloNIDine HCL 0.1 MG TAB PO SCH ×2 (09:59→20:39)
[2017-03-15] MEDS: LISINOPRIL 20 MG TAB PO SCH (09:59)
[2017-03-15] MEDS: POTASSIUM CHLORIDE 8 MEQ CONTROLLED RELEASE TAB PO SCH (10:00)
[2017-03-15] MEDS: TRIAMTERENE/HCTZ 37.5 MG/25 MG TAB PO SCH (10:00)
[2017-03-15] MEDS: SODIUM CHLORIDE 0.9% FLUSH 10 ML FLUSH IV FLUSH SCH ×2 (10:00→20:39)
[2017-03-15] MEDS: POLYETHYLENE GLYCOL 17 GM PKG PO SCH (10:03)
--- NOTE | 2017-03-15 10:34 | MP ---
cc: MARISSA PHILLIPS M.D. DATE OF SURGERY: 03/14/2017 PREOPERATIVE DIAGNOSIS: 1. Acute cholecystitis. 2. Choledocholithiasis status post endoscopic retrograde cholangiopancreatography stone retrieval. POSTOPERATIVE DIAGNOSIS: 1. Acute cholecystitis. 2. Choledocholithiasis status post endoscopic retrograde cholangiopancreatography stone retrieval. 3. Very acute cholecystitis with phlegmon right upper quadrant. OPERATION: Laparoscopic cholecystectomy. SURGEON: Marissa Phillips MD. ANESTHESIA: General endotracheal anesthesia. COMPLICATIONS: None. ESTIMATED BLOOD LOSS: About 250 cc. INDICATIONS FOR PROCEDURE: Mr. Rios is a pleasant 86-year-old gentleman who presented emergency department at [place] with a right upper quadrant pain. He was seen, evaluated. He was worked up and found to have cholecystitis as well as choledocholithiasis. He was taken for ERCP by Dr. Ortega, retrieved the common duct stones cleared the common bile duct and placed a stent. He was then offered cholecystectomy. Risks and benefits of laparoscopic possible open cholecystectomy was discussed him. He is agreeable. INTRAOPERATIVE FINDINGS The patient had a intense phlegmon in the right upper quadrant. The omentum was completely encasing the gallbladder. Gallbladder was markedly thickened and contracted and contained very little bile and several large gallstones. The intense phlegmon went down into the neck of the gallbladder region where it was very edematous and we were unable to dissect identify any structures. We therefore elected to transect the gallbladder neck and remove the distal gallbladder and then dissected the proximal neck of the gallbladder and cleared of any stones and then encircled it with a 0-PDS Endoloop. It should be noted no bile was seen coming from the gallbladder at any point during the case as it was occluded which was confirmed on the ERCP the day before. DETAILS Intraoperative details the patient was identified, brought the operating placed supine on the table. After adequate general tracheal anesthesia was achieved the abdomen was prepped and draped in standard surgical fashion. Supraumbilical space was anesthetized with 0.25% Marcaine. Supraumbilical incision was made. Dissection carried down through subcutaneous tissues midline fascia. Midline fascia was incised sharply. Finger was then placed in peritoneal cavity without difficulty. Blunt balloon trocar was inserted and the abdomen was insufflated to 15 mmHg using CO2 gas. Next two, 5 mm trocars were placed in the right upper quadrant after anesthetizing the skin and subcutaneous tissue with 0.25% Marcaine. Both trocars placed under direct vision. Brief review the abdominal cavity were revealed omentum stuck up to the umbilicus from the patient's previous umbilical hernia repair. In the right upper quadrant the omentum was completely encasing the liver, indicating an acute inflammatory change. There is also moderate amount of ascites in the right upper quadrant around the liver. The ascites was suctioned out with suction lead cargoman. The omentum was carefully brought down using a combination of blunt electrocautery dissection. We then identified a contracted very thickened edematous gallbladder. Gallbladder was unable to be grasped due to its tense nature. We therefore used the aspiration needle aspirate about 30 cc of dark fluid which appeared to be old bile. Once we did this we were able to grasp the gallbladder better. A third port was placed in the right upper quadrant in order to elevate the gallbladder cephalad. Gallbladder was then elevated cephalad. Attention was then directed onto dissection of the gallbladder. Using blunt hydrodissection we were able to free up the omentum all the way down to the neck of the gallbladder. There was an intense inflammatory reaction. There was mild oozing from all structures that were encountered. Once we got down the gallbladder neck. There was a very intense inflammatory reaction with all structures very thickened and edematous and very firm and fibrotic. Using the [place] dissector, I was unable to dissect down below the neck of the gallbladder. I therefore felt it was unsafe to go down in this region due to the intense inflammatory reaction and the inability to identify any anatomic structures. Therefore we took the gallbladder down in a dome down technique. Gallbladder was dissected out of the hepatic fossa using electrocautery Bovie. Gallbladder was densely adherent to the hepatic fossa and there was a moderate amount of bleeding encountered during this dissection. Once we got the gallbladder completely freed up, I transected the neck of the gallbladder using electrocautery Bovie with an Endopouch underneath it. The distal gallbladder and stones were caught in the Endopouch and then removed. No stones were spilled. Once we did this we were able to identify the neck of the gallbladder at 360 degrees. We did dissected down the neck of the gallbladder a little further to the edge of the inflammatory response. The cystic artery was encountered and was clipped once proximally with an Endo clip. We visualized the neck of the gallbladder. There no stones noted. We could not see the location of the cystic duct but there was no bile flowing from the proximal gallbladder at all. Once we freed the gallbladder neck up down the bed to the inflammatory response where the approximate location and cystic duct was located. I used a 0 PDS and Endoloop to encircle the proximal gallbladder at the neck and cystic duct junction. Once we did this mucosa of the proximal neck of the gallbladder was then burned with electrocautery Bovie. No bleeding was noted. Cystic artery was carefully inspected and clip was then placed and there was no bleeding noted. The liver bed was carefully inspected, irrigated out and all bleeding points were controlled electrocautery Bovie. Prior to irrigating out of the abdominal cavity. Estimated blood loss was about 200 cc. This was mainly from the liver bed and also when we briefly encountered the cystic artery which was immediately controlled with a clip. At this point the abdominal cavity rinsed out 1 liter warm saline solution. After it was noted to be clear. Liver bed was inspected a third time and was completely hemostatic. Cystic artery was inspected and it was without evidence of bleeding. The neck of the gallbladder was carefully inspected. There was no bleeding from that. We then used Surgicel powder in the liver bed and along the remnant of the proximal gallbladder. The snow was completely white with no evidence of bleeding through it whatsoever. This was photographed. Next, 10-Bolivian Lalit-Fishman drain was brought up and placed into the liver bed adjacent to the neck of the gallbladder stump. We then placed omentum up in the right upper quadrant along the liver bed and of the gallbladder neck stump. A brief review the abdominal cavity revealed no other gross abnormalities. All trocars then removed under direct vision. Drain was secured with 2-0 nylon suture. Midline fascia was repaired with 0 Vicryl in [id number] fashion x2. Skin was closed with 4-0 Vicryl. The patient tolerated procedure well. Please note the operative time of this procedure was approximately two and half hours. We had to open additional instrumentation in order to safely perform the surgery laparoscopically. We had to place an additional port as well in order to visualize the gallbladder and liver bed safely. We also had to place a drain at the conclusion of procedure. The patient was awakened, brought recovery in stable condition. The conclusion of procedure. The drain was not draining any blood or bile. At the conclusion of procedure. MD Elsa Costello /12:55 PM /10:06 AM
--- NOTE | 2017-03-15 11:56 | HHI.GIFU ---
Subjective Remarks Pt resting in bed. no new complaints. Says he has the same abdominal "dull" pain. Tolerating CLD. (Chel Whitten) Objective Vitals I&O Vital Signs Date Time Temp Pulse Resp B/P (MAP) Pulse Ox O2 Delivery O2 Flow Rate FiO2 03/15/17 08:02 98.2 53 16 159/69 (99) 91 03/15/17 06:02 97.3 47 18 151/72 (98) 92 03/15/17 03:59 46 03/15/17 00:30 53 03/14/17 23:58 97.9 48 18 159/74 (102) 93 03/14/17 20:35 Nasal Cannula 3.00 03/14/17 19:50 58 03/14/17 19:25 98.2 54 18 151/70 (97) 92 03/14/17 14:35 55 15 134/64 (87) 98 Nasal Cannula 2 03/14/17 14:15 52 15 130/62 (84) 95 Nasal Cannula 4 03/14/17 14:00 54 16 143/68 (93) 92 Nasal Cannula 4 03/14/17 13:45 51 16 144/65 (91) 93 Simple Mask 10 03/14/17 13:30 52 16 141/66 (91) 92 Simple Mask 10 03/14/17 13:15 52 16 140/61 (87) 93 Nasal Cannula 4 03/14/17 13:04 98.2 58 18 113/57 (75) 89 Nasal Cannula 4 I/O 03/14/17 03/14/17 03/14/17 03/15/17 03/15/17 03/15/17 06:59 14:59 22:59 06:59 14:59 22:59 Intake Total 996 ml 800 ml 806 ml 378 ml Output Total 950 ml 425 ml 600 ml 650 ml Balance 46 ml 375 ml 206 ml -272 ml Intake Oral 90 ml 0 ml 0 ml IV Total 906 ml 806 ml 378 ml Other 800 ml Output Urine Total 950 ml 225 ml 600 ml 600 ml Drainage Total 50 ml Estimated Blood Loss 200 ml # Bowel Movements 0 0 0 Laboratory Laboratory Tests Test 03/15/17 06:55 White Blood Count 8.9 Red Blood Count 4.16 Hemoglobin 12.6 Hematocrit 36.7 Mean Corpuscular Volume 88.2 Mean Corpuscular Hemoglobin 30.2 Mean Corpuscular Hemoglobin Concent 34.3 Red Cell Distribution Width 13.8 Platelet Count 348 Mean Platelet Volume 8.8 Blood Urea Nitrogen 23 Creatinine 2.11 Random Glucose 126 Total Protein 6.6 Albumin 2.6 Calcium Level 7.9 Alkaline Phosphatase 173 Aspartate Amino Transf (AST/SGOT) 96 Alanine Aminotransferase (ALT/SGPT) 119 Total Bilirubin 0.8 Sodium Level 138 Potassium Level 4.2 Chloride Level 105 Carbon Dioxide Level 23.9 Anion Gap 9 Estimat Glomerular Filtration Rate 30 Date/Time Source Procedure Growth Status 03/13/17 00:40 Urine Clean Catch Urine Culture - Final 50-100,000 CFU/ML MIXED GRAM POSITIVE... Complete Imaging Last Impressions GI Procedure 03/13/17 0000 Signed Impressions: Service Date/Time: March 13:58 - CONCLUSION: ERCP as above. Claude Guo MD Abdomen/Pelvis CT 03/12/172205 Signed Impressions: Service Date/Time: Sunday, March 12, 2017 22:27 - CONCLUSION: 1. Multiple gallstones in the region of the distal common bile duct with the largest measuring 8 mm. The common bile duct is prominent in size and likely is obstructed. 2. Thickening of the wall of the gallbladder and pericholecystic fluid and inflammatory change suggesting acute cholecystitis. Clinical correlation is recommended. 3. Cholelithiasis. 4. Uncomplicated colonic diverticulosis. 5. Calcified nonobstructing bilateral renal calculi. 6. Ventral abdominal wall hernias containing only fat. 7. Posterior peripheral calcification of the prostate gland. Temo Francois MD Gall Bladder Ultrasound 03/12/17 0000 Signed Impressions: Service Date/Time: Sunday, March 12, 2017 22:57 - CONCLUSION: 1. Cholelithiasis with mild gallbladder wall thickening and small amount of pericholecystic fluid. There was no sonographic Zuñiga's sign. 2. Prominent common bile duct measuring 10 mm with no filling defects identified in the visualized portion of the duct. The apparent stones in the distal duct could not be visualized. There is mild prominence of the central intrahepatic biliary system as well. 3. Enlarged liver with hepatic steatosis. 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 s/p lap mervin. LFTs trending down. CLD per GS. PLAN - diet per GS - monitor labs - supportive care This pt seen by myself and Dr Schneider and this note is written on his behalf (Chel Whitten) Plan Patient was seen and examined, agree with above-noted, as well as diet as tolerated, will follow up as needed (Francisca Schneider MD) Chel Whitten Mar 15, 2017 11:56 Francisca Schneider MD Mar 15, 2017 18:39
--- NOTE | 2017-03-15 12:51 | HHI.PR ---
cc: Phani Siddiqui MD Subjective Subjective Notes DAILY PROGRESS NOTE FOR SURGICAL ATTENDING, DR. PHANI SIDDIQUI Open chair feeling well Objective Vitals/I&O Vital Signs Date Time Temp Pulse Resp B/P (MAP) Pulse Ox O2 Delivery O2 Flow Rate FiO2 03/15/17 08:02 98.2 53 16 159/69 (99) 91 03/14/17 20:35 Nasal Cannula 3.00 Labs Laboratory Tests Test 03/15/17 06:55 White Blood Count 8.9 Red Blood Count 4.16 Hemoglobin 12.6 Hematocrit 36.7 Mean Corpuscular Volume 88.2 Mean Corpuscular Hemoglobin 30.2 Mean Corpuscular Hemoglobin Concent 34.3 Red Cell Distribution Width 13.8 Platelet Count 348 Mean Platelet Volume 8.8 Blood Urea Nitrogen 23 Creatinine 2.11 Random Glucose 126 Total Protein 6.6 Albumin 2.6 Calcium Level 7.9 Alkaline Phosphatase 173 Aspartate Amino Transf (AST/SGOT) 96 Alanine Aminotransferase (ALT/SGPT) 119 Total Bilirubin 0.8 Sodium Level 138 Potassium Level 4.2 Chloride Level 105 Carbon Dioxide Level 23.9 Anion Gap 9 Estimat Glomerular Filtration Rate 30 Date/Time Source Procedure Growth Status 03/13/17 00:40 Urine Clean Catch Urine Culture - Final 50-100,000 CFU/ML MIXED GRAM POSITIVE... Complete Radiology Last Impressions GI Procedure 03/13/17 0000 Signed Impressions: Service Date/Time: March 13:58 - CONCLUSION: ERCP as above. Claude Guo MD Abdomen/Pelvis CT 03/12/176 Signed Impressions: Service Date/Time: Sunday, March 12, 2017 22:27 - CONCLUSION: 1. Multiple gallstones in the region of the distal common bile duct with the largest measuring 8 mm. The common bile duct is prominent in size and likely is obstructed. 2. Thickening of the wall of the gallbladder and pericholecystic fluid and inflammatory change suggesting acute cholecystitis. Clinical correlation is recommended. 3. Cholelithiasis. 4. Uncomplicated colonic diverticulosis. 5. Calcified nonobstructing bilateral renal calculi. 6. Ventral abdominal wall hernias containing only fat. 7. Posterior peripheral calcification of the prostate gland. Temo Francois MD Gall Bladder Ultrasound 03/12/17 0000 Signed Impressions: Service Date/Time: Sunday, March 12, 2017 22:57 - CONCLUSION: 1. Cholelithiasis with mild gallbladder wall thickening and small amount of pericholecystic fluid. There was no sonographic Zuñiga's sign. 2. Prominent common bile duct measuring 10 mm with no filling defects identified in the visualized portion of the duct. The apparent stones in the distal duct could not be visualized. There is mild prominence of the central intrahepatic biliary system as well. 3. Enlarged liver with hepatic steatosis. Dez Sexton MD Cardiovascular: Regular Abdomen: Non-distended, Other (DAINA in place), Post-op tenderness Extremities: Perfused A/P Problem List: (1) S/P laparoscopic cholecystectomy ICD Codes: Z90.49 - Acquired absence of other specified parts of digestive tract Status: Acute (2) Cholecystitis, acute with cholelithiasis ICD Codes: K80.00 - Calculus of gallbladder with acute cholecystitis without obstruction Status: Acute (3) Choledocholithiasis with acute cholecystitis with obstruction ICD Codes: K80.41 - Calculus of bile duct with cholecystitis, unspecified, with obstruction Status: Acute Assessment and Plan 86-year-old gentleman status post laparoscopic cholecystectomy doing well Advance diet as tolerated patient would like to stay on clears today H crease activities Attending Statement NOTE FOR SURGICAL ATTENDING, DR. PHANI SIDDIQUI I attest that I had a [id number] encounter with the patient on the same day, and personally performed and documented my assessment and findings in the medical record. The following services were provided during this hospital visit: Chart data review, vital sign assessments/reviewing monitor data Review of consultations notes if present. Medication orders/review and/or management Ordering and/or reviewing lab tests Ordering and/or interpreting/reviewing x-rays and/or diagnostic studies Care of the patient and discussion of the patient with the care team Documentation time To help prompt me to consider important information that might be impacting today's encounter and assessment, information from prior notes written by myself or my colleagues may have been "brought forward/copy and pasted" into today's note. Problem Qualifiers (1) Cholecystitis, acute with cholelithiasis: Qualified Codes: K80.01 - Calculus of gallbladder with acute cholecystitis with obstruction Phani Siddiqui MD Mar 15, 2017 12:51
--- NOTE | 2017-03-15 15:13 | HHI.PR ---
Subjective Remarks no abdominal pain, nausea or vomiting taking po liquids well + lots of flatus Objective Vitals Vital Signs Date Time Temp Pulse Resp B/P (MAP) Pulse Ox O2 Delivery O2 Flow Rate FiO2 03/15/17 12:02 97.6 62 16 147/65 (92) 90 03/15/17 08:02 98.2 53 16 159/69 (99) 91 03/15/17 06:02 97.3 47 18 151/72 (98) 92 03/15/17 03:59 46 03/15/17 00:30 53 03/14/17 23:58 97.9 48 18 159/74 (102) 93 03/14/17 20:35 Nasal Cannula 3.00 03/14/17 19:50 58 03/14/17 19:25 98.2 54 18 151/70 (97) 92 I/O 03/14/17 03/14/17 03/14/17 03/15/17 03/15/17 03/15/17 07:00 15:00 23:00 07:00 15:00 23:00 Intake Total 996 ml 800 ml 806 ml 378 ml Output Total 950 ml 425 ml 600 ml 650 ml 100 ml Balance 46 ml 375 ml 206 ml -272 ml -100 ml Intake Oral 90 ml 0 ml 0 ml IV Total 906 ml 806 ml 378 ml Other 800 ml Output Urine Total 950 ml 225 ml 600 ml 600 ml Drainage Total 50 ml 100 ml Estimated Blood Loss 200 ml # Bowel Movements 0 0 0 Result Diagram: 03/15/17 0655 03/15/17 0655 Imaging Last Impressions GI Procedure 03/13/17 0000 Signed Impressions: Service Date/Time: March 13:58 - CONCLUSION: ERCP as above. Claude Guo MD Abdomen/Pelvis CT 03/12/176 Signed Impressions: Service Date/Time: Sunday, March 12, 2017 22:27 - CONCLUSION: 1. Multiple gallstones in the region of the distal common bile duct with the largest measuring 8 mm. The common bile duct is prominent in size and likely is obstructed. 2. Thickening of the wall of the gallbladder and pericholecystic fluid and inflammatory change suggesting acute cholecystitis. Clinical correlation is recommended. 3. Cholelithiasis. 4. Uncomplicated colonic diverticulosis. 5. Calcified nonobstructing bilateral renal calculi. 6. Ventral abdominal wall hernias containing only fat. 7. Posterior peripheral calcification of the prostate gland. Temo Francois MD Gall Bladder Ultrasound 03/12/17 0000 Signed Impressions: Service Date/Time: Sunday, March 12, 2017 22:57 - CONCLUSION: 1. Cholelithiasis with mild gallbladder wall thickening and small amount of pericholecystic fluid. There was no sonographic Zuñiga's sign. 2. Prominent common bile duct measuring 10 mm with no filling defects identified in the visualized portion of the duct. The apparent stones in the distal duct could not be visualized. There is mild prominence of the central intrahepatic biliary system as well. 3. Enlarged liver with hepatic steatosis. Dez Sexton MD Objective Remarks awake and alert, oriented c3 anicteric lungs - no rales or wheezes regular rhythm abdomen- flabby, soft,nontender, no guarding, good bowel sounds + sutures in place, + DAINA drain in place extremities- - no edema neuro exam- unremarkable Procedures 03/13- ERCP with sphincterotomy and stent placed 03/14- laparoscopic cholecystectomy A/P Assessment and Plan 86 years old male admitted for Acute choledocholithiasis on 03/12 S/P Laparoscopic cholecystectomy - OR findings with inflamed GB - acute cholecystitis S/P ERCP with sphincterotomy and stent placement 03/14 - GI ff - Continue Zosyn decrease to q 8 - started on po liquids - LFTs gradually trending down. 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
[2017-03-15] MEDS: FENOFIBRATE 48 MG TAB PO SCH (20:39)
[2017-03-16] VITALS (12 sets, daily range): BP systolic 120–168; BP diastolic 59–89; PULSE 41–66; RESP 18–19; TEMP 97.6–98.7; O2SAT 90–94
[2017-03-16] MEDS: PIPERACIL-TAZO 3.375 GM PREMIX 50 ML IV SCH ×3 (04:39→21:06)
[2017-03-16 08:25] LABS: ANION GAP 8 MEQ/L (5-15); AST (GOT) 60 U/L (15-37); BICARBONATE 25.9 MEQ/L (21.0-32.0); BLOOD UREA NITROGEN 21 MG/DL (7-18); CHLORIDE 106 MEQ/L (98-107); GLOMERULAR FILTRATION RATE 35 ML/MIN (>89); POTASSIUM 3.9 MEQ/L (3.5-5.1); SODIUM (NA) 140 MEQ/L (136-145)
[2017-03-16 08:30] LABS: ALKALINE PHOSPHATASE 137 U/L (45-117); ALT (GPT) 87 U/L (12-78); TOTAL BILIRUBIN ADULT 0.7 MG/DL (0.2-1.0)
--- NOTE | 2017-03-16 08:46 | HHI.PR ---
Subjective Remarks Follow up cholecystectomy, elevated LFTs, acute kidney injury. Patient denies abdominal pain, nausea, vomiting. States that he has been ambulating. Objective Vitals Vital Signs Date Time Temp Pulse Resp B/P (MAP) Pulse Ox O2 Delivery O2 Flow Rate FiO2 03/16/17 04:00 Nasal Cannula 2.00 03/16/17 04:00 97.9 58 18 168/74 (105) 94 03/16/17 03:59 51 03/16/17 00:12 41 03/16/17 00:00 Nasal Cannula 4.00 03/16/17 00:00 97.6 63 19 168/84 (112) 94 03/15/17 20:00 46 03/15/17 20:00 98.3 54 18 168/74 (105) 93 03/15/17 20:00 Nasal Cannula 4.00 03/15/17 17:07 97.4 52 16 143/67 (92) 92 03/15/17 12:02 97.6 62 16 147/65 (92) 90 I/O 03/15/17 03/15/17 03/15/17 03/16/17 03/16/17 03/16/17 07:00 15:00 23:00 07:00 15:00 23:00 Intake Total 378 ml 450 ml 430 ml 450 ml Output Total 650 ml 100 ml 550 ml 850 ml Balance -272 ml 350 ml -120 ml -400 ml Intake Oral 0 ml 380 ml 400 ml IV Total 378 ml 450 ml 50 ml 50 ml Output Urine Total 600 ml 500 ml 850 ml Drainage Total 50 ml 100 ml 50 ml # Bowel Movements 0 0 1 Result Diagram: 03/15/17 0655 03/16/17 0602 Imaging Last Impressions GI Procedure 03/13/17 0000 Signed Impressions: Service Date/Time: March 13:58 - CONCLUSION: ERCP as above. Claude Guo MD Abdomen/Pelvis CT 03/12/172205 Signed Impressions: Service Date/Time: Sunday, March 12, 2017 22:27 - CONCLUSION: 1. Multiple gallstones in the region of the distal common bile duct with the largest measuring 8 mm. The common bile duct is prominent in size and likely is obstructed. 2. Thickening of the wall of the gallbladder and pericholecystic fluid and inflammatory change suggesting acute cholecystitis. Clinical correlation is recommended. 3. Cholelithiasis. 4. Uncomplicated colonic diverticulosis. 5. Calcified nonobstructing bilateral renal calculi. 6. Ventral abdominal wall hernias containing only fat. 7. Posterior peripheral calcification of the prostate gland. Temo Francois MD Gall Bladder Ultrasound 03/12/17 0000 Signed Impressions: Service Date/Time: Sunday, March 12, 2017 22:57 - CONCLUSION: 1. Cholelithiasis with mild gallbladder wall thickening and small amount of pericholecystic fluid. There was no sonographic Zuñiga's sign. 2. Prominent common bile duct measuring 10 mm with no filling defects identified in the visualized portion of the duct. The apparent stones in the distal duct could not be visualized. There is mild prominence of the central intrahepatic biliary system as well. 3. Enlarged liver with hepatic steatosis. Dez Sexton MD Objective Remarks General: No acute distress. Heart: Regular rate and rhythm. No murmur. Lungs: Clear to auscultation bilaterally. No wheezes, rales, or rhonchi. Breathing is nonlabored. Abdomen: Soft, nontender, nondistended. Positive bowel sounds. Surgical wounds noted without surrounding erythema. Drain in place. Extremities: No lower extremity edema. Psych: Sleeping, but awakens easily and answers questions appropriately. Procedures 03/13- ERCP with sphincterotomy and stent placed 03/14- laparoscopic cholecystectomy Urinary Catheter: No Vascular Central Line Catheter: No A/P Assessment and Plan 1. Acute choledocholithiasis: Status post laparoscopic cholecystectomy, status post ERCP with sphincterotomy and stent placement. Appreciate GI and general surgery recommendations. Continue antibiotics. LFTs are trending down. Advance diet as tolerated per general surgery recommendations. The patient has been tolerating clear liquid diet. 2. Acute kidney injury: Patient likely has underlying chronic kidney disease. Creatinine improving. 3. Hypertension: Continue clonidine, lisinopril, amlodipine. Maxzide held secondary to elevated creatinine. 4. Diabetes mellitus type 2: Glimepiride on hold. Diabetic diet. 5. DVT prophylaxis: SCDs. 6. Physical therapy eval ordered. Discharge Planning Anticipate discharge soon, home versus SNF. Awaiting general surgery clearance. Jose Devine MD Mar 16, 2017 08:46
[2017-03-16] MEDS: cloNIDine HCL 0.1 MG TAB PO SCH ×2 (09:14→21:06)
[2017-03-16] MEDS: SODIUM CHLORIDE 0.9% FLUSH 10 ML FLUSH IV FLUSH SCH ×2 (09:15→21:07)
[2017-03-16] MEDS: POTASSIUM CHLORIDE 8 MEQ CONTROLLED RELEASE TAB PO SCH (09:15)
[2017-03-16] MEDS: LISINOPRIL 20 MG TAB PO SCH (09:15)
[2017-03-16] MEDS: POLYETHYLENE GLYCOL 17 GM PKG PO SCH (09:18)
--- NOTE | 2017-03-16 16:48 | HHI.PR ---
cc: Phani Siddiqui MD Subjective Subjective Notes DAILY PROGRESS NOTE FOR SURGICAL ATTENDING, DR. PHANI SIDDIQUI I would like more to eat I am getting better I Objective Vitals/I&O Vital Signs Date Time Temp Pulse Resp B/P (MAP) Pulse Ox O2 Delivery O2 Flow Rate FiO2 03/16/17 12:02 97.8 56 18 120/59 (79) 90 03/16/17 08:00 Nasal Cannula 2.00 Labs Laboratory Tests Test 03/16/17 06:02 Blood Urea Nitrogen 21 Creatinine 1.83 Random Glucose 87 Total Protein 6.2 Albumin 2.5 Calcium Level 8.1 Alkaline Phosphatase 137 Aspartate Amino Transf (AST/SGOT) 60 Alanine Aminotransferase (ALT/SGPT) 87 Total Bilirubin 0.7 Sodium Level 140 Potassium Level 3.9 Chloride Level 106 Carbon Dioxide Level 25.9 Anion Gap 8 Estimat Glomerular Filtration Rate 35 Date/Time Source Procedure Growth Status 03/13/17 00:40 Urine Clean Catch Urine Culture - Final 50-100,000 CFU/ML MIXED GRAM POSITIVE... Complete Radiology Last Impressions GI Procedure 03/13/17 0000 Signed Impressions: Service Date/Time: March 13:58 - CONCLUSION: ERCP as above. Claude Guo MD Abdomen/Pelvis CT 03/12/17 2206 Signed Impressions: Service Date/Time: Sunday, March 12, 2017 22:27 - CONCLUSION: 1. Multiple gallstones in the region of the distal common bile duct with the largest measuring 8 mm. The common bile duct is prominent in size and likely is obstructed. 2. Thickening of the wall of the gallbladder and pericholecystic fluid and inflammatory change suggesting acute cholecystitis. Clinical correlation is recommended. 3. Cholelithiasis. 4. Uncomplicated colonic diverticulosis. 5. Calcified nonobstructing bilateral renal calculi. 6. Ventral abdominal wall hernias containing only fat. 7. Posterior peripheral calcification of the prostate gland. Temo Francois MD Gall Bladder Ultrasound 03/12/17 0000 Signed Impressions: Service Date/Time: Sunday, March 12, 2017 22:57 - CONCLUSION: 1. Cholelithiasis with mild gallbladder wall thickening and small amount of pericholecystic fluid. There was no sonographic Zuñiga's sign. 2. Prominent common bile duct measuring 10 mm with no filling defects identified in the visualized portion of the duct. The apparent stones in the distal duct could not be visualized. There is mild prominence of the central intrahepatic biliary system as well. 3. Enlarged liver with hepatic steatosis. Dez Sexton MD Cardiovascular: Regular Abdomen: Non-distended, Post-op tenderness Extremities: Perfused A/P Problem List: (1) S/P laparoscopic cholecystectomy ICD Codes: Z90.49 - Acquired absence of other specified parts of digestive tract Status: Acute (2) Cholecystitis, acute with cholelithiasis ICD Codes: K80.00 - Calculus of gallbladder with acute cholecystitis without obstruction Status: Acute (3) Choledocholithiasis with acute cholecystitis with obstruction ICD Codes: K80.41 - Calculus of bile duct with cholecystitis, unspecified, with obstruction Status: Acute Assessment and Plan 86-year-old gentleman status post laparoscopic cholecystectomy doing well Advance diet as tolerated Okay to discharge Attending Statement NOTE FOR SURGICAL ATTENDING, DR. PHANI SIDDIQUI I attest that I had a [id number] encounter with the patient on the same day, and personally performed and documented my assessment and findings in the medical record. The following services were provided during this hospital visit: Chart data review, vital sign assessments/reviewing monitor data Review of consultations notes if present. Medication orders/review and/or management Ordering and/or reviewing lab tests Ordering and/or interpreting/reviewing x-rays and/or diagnostic studies Care of the patient and discussion of the patient with the care team Documentation time To help prompt me to consider important information that might be impacting today's encounter and assessment, information from prior notes written by myself or my colleagues may have been "brought forward/copy and pasted" into today's note. Problem Qualifiers (1) Cholecystitis, acute with cholelithiasis: Qualified Codes: K80.01 - Calculus of gallbladder with acute cholecystitis with obstruction Phani Siddiqui MD Mar 16, 2017:48
[2017-03-16] MEDS: FENOFIBRATE 48 MG TAB PO SCH (21:07)
[2017-03-17] VITALS: BP 110/60; PULSE 54; RESP 21; TEMP 97.4; O2SAT 94
[2017-03-17 00:06] VITALS: PULSE 54
[2017-03-17 04:00] VITALS: BP 160/72; PULSE 58; RESP 20; TEMP 98.1; O2SAT 94
[2017-03-17 04:26] VITALS: PULSE 46
[2017-03-17] MEDS: PIPERACIL-TAZO 3.375 GM PREMIX 50 ML IV SCH (04:41)
[2017-03-17 08:00] VITALS: BP 158/70; PULSE 52; PULSE 66; RESP 16; TEMP 97.5; O2SAT 94
--- NOTE | 2017-03-17 08:08 | HHI.FF ---
Face to Face Verification Diagnosis: (1) Hypertension (2) Diabetes mellitus (3) Cholecystitis, acute with cholelithiasis (4) Choledocholithiasis with acute cholecystitis with obstruction (5) S/P laparoscopic cholecystectomy Physical Therapy Order: Evaluate and Treat Home Health Nursing Order: Nursing assessment with vital signs I have seen patient Kian Rios on 03/17/17. My clinical findings support the need for the requested home health care services because: Deconditioned w/ increased weakness I certify that my clinical findings support that this patient is homebound because: Post-op weakness Jose Devine MD Mar 17, 2017 08:07
--- NOTE | 2017-03-17 08:19 | HHI.DS ---
Discharge Summary Admission Date Mar 12, 2017 at 23:53 Discharge Date: Mar 17, 2017 Admitting Diagnosis ACUTE CHOLECYSTITIS WITH CHOLEDOCHOLITHIASIS (1) Cholecystitis, acute with cholelithiasis ICD Code: K80.00 - Calculus of gallbladder with acute cholecystitis without obstruction Status: Acute (2) Choledocholithiasis with acute cholecystitis with obstruction ICD Code: K80.41 - Calculus of bile duct with cholecystitis, unspecified, with obstruction Status: Acute (3) Diabetes mellitus ICD Code: E11.9 - Type 2 diabetes mellitus without complications (4) Hypertension ICD Code: I10 - Essential (primary) hypertension (5) S/P laparoscopic cholecystectomy ICD Code: Z90.49 - Acquired absence of other specified parts of digestive tract Status: Acute Procedures 03/13- ERCP with sphincterotomy and stent placed 03/14- laparoscopic cholecystectomy Brief History - From Admission 86-year-old male being admitted for suspected common bile duct obstruction. Patient was in his usual state of health until about 2 days ago when he began experiencing epigastrium and right upper quadrant abdominal pain that was sharp and intermittent. The pain had eased up and came back again last night in the evening while he was resting Topamax intensity of 10 out of 10. He took some Tums to no avail and was not able to identify any other exacerbating or alleviating factors. He decided to come to emergency room at that time. He denies any nausea vomiting fevers chills or diarrhea. He thinks that his bowel movements have slightly slowed down from about once a day to about once every 2 days but denies any changes in the consistency of the stool nor does he see any melena or bright red blood per rectum. Patient states he still has gallbladder and that he had an endoscopy or a PillCam study done couple of years ago and he claims they found nothing. He says he has had an appendectomy when he was much younger. He has a history of a upper GI bleed in 2006 likely secondary to some duodenitis and gastritis, stains were negative for H. pylori. CBC/BMP: 03/15/17 0655 03/16/17 0602 Significant Findings Laboratory Tests Test 03/15/17 06:55 03/16/17 06:02 Red Blood Count 4.16 MIL/MM3 (4.50-5.90) Hemoglobin 12.6 GM/DL (13.0-17.0) Hematocrit 36.7 % (39.0-51.0) Blood Urea Nitrogen 23 MG/DL (7-18) 21 MG/DL (7-18) Creatinine 2.11 MG/DL (0.60-1.30) 1.83 MG/DL (0.60-1.30) Random Glucose 126 MG/DL (74-106) Albumin 2.6 GM/DL (3.4-5.0) 2.5 GM/DL (3.4-5.0) Calcium Level 7.9 MG/DL (8.5-10.1) 8.1 MG/DL (8.5-10.1) Alkaline Phosphatase 173 U/L (45-117) 137 U/L (45-117) Aspartate Amino Transf (AST/SGOT) 96 U/L (15-37) 60 U/L (15-37) Alanine Aminotransferase (ALT/SGPT) 119 U/L (12-78) 87 U/L (12-78) Estimat Glomerular Filtration Rate 30 ML/MIN (>89) 35 ML/MIN (>89) Total Protein 6.2 GM/DL (6.4-8.2) Imaging Last Impressions GI Procedure 03/13/17 0000 Signed Impressions: Service Date/Time: March 13:58 - CONCLUSION: ERCP as above. Claude Guo MD Abdomen/Pelvis CT 03/12/17 2206 Signed Impressions: Service Date/Time: Sunday, March 12, 2017 22:27 - CONCLUSION: 1. Multiple gallstones in the region of the distal common bile duct with the largest measuring 8 mm. The common bile duct is prominent in size and likely is obstructed. 2. Thickening of the wall of the gallbladder and pericholecystic fluid and inflammatory change suggesting acute cholecystitis. Clinical correlation is recommended. 3. Cholelithiasis. 4. Uncomplicated colonic diverticulosis. 5. Calcified nonobstructing bilateral renal calculi. 6. Ventral abdominal wall hernias containing only fat. 7. Posterior peripheral calcification of the prostate gland. Temo Francois MD Gall Bladder Ultrasound 03/12/17 0000 Signed Impressions: Service Date/Time: Sunday, March 12, 2017 22:57 - CONCLUSION: 1. Cholelithiasis with mild gallbladder wall thickening and small amount of pericholecystic fluid. There was no sonographic Zuñiga's sign. 2. Prominent common bile duct measuring 10 mm with no filling defects identified in the visualized portion of the duct. The apparent stones in the distal duct could not be visualized. There is mild prominence of the central intrahepatic biliary system as well. 3. Enlarged liver with hepatic steatosis. Dez Sexton MD PE at Discharge General: No acute distress. Heart: Regular rate and rhythm. No murmur. Lungs: Clear to auscultation bilaterally. No wheezes, rales, or rhonchi. Breathing is nonlabored. Abdomen: Soft, nontender, nondistended. Positive bowel sounds. Surgical wounds noted without surrounding erythema. Drain in place. Extremities: No lower extremity edema. Psych: Awake, answers questions appropriately. Pt update on day of discharge The patient has no complaints at this time. No abdominal pain, nausea, vomiting. Tolerating diet, but not hungry last night ("I was watching football and didn't feel like eating".) Hospital Course The patient was admitted for further evaluation and management of acute choledocholithiasis. General surgery and gastroenterology were consulted. ERCP was done with sphincterotomy and removal of stones was done on 03/13/17. Recommendations were made for cholecystectomy. General surgery performed laparoscopic cholecystectomy. Drain was left in place. Patient's symptoms improved significantly. Teased trended downward. His diet was advanced. He was cleared for discharge by general surgery. He was felt to be stable for discharge back to assisted living facility with home health care for physical therapy. Pt Condition on Discharge: Stable Discharge Disposition: [facility] with [facility] Discharge Time: > 30 minutes Discharge Instructions DIET: Follow Instructions for: Heart Healthy Diet, Diabetic Diet Activities you can perform: Regular-No Restrictions Follow up Referrals: PCP Follow-up - 2 Weeks Surgical - 1 Week with Tim Vee MD Continued Medications: Atorvastatin (Atorvastatin) 10 Mg Tab 10 MG PO HS for Cholesterol Management, #30 TAB 0 Refills Clonidine (Clonidine) 0.1 Mg Tab 0.1 MG PO BID for Blood Pressure Management, #60 TAB 0 Refills Felodipine ER (Felodipine ER) 10 mg Amina 10 MG PO DAILY for Blood Pressure Management, #30 TAB 0 Refills Fenofibrate (Fenofibrate) 54 Mg Tab 108 MG PO HS, #30 TAB 0 Refills Lisinopril (Lisinopril) 40 Mg Tab 40 MG PO DAILY for Blood Pressure Management, #30 TAB 0 Refills Potassium Chloride ER (Klor-Con 8) 8 Meq Tab 8 MEQ PO DAILY for Electrolyte Replacement, #30 TAB 0 Refills Potassium Chloride Microencaps (Potassium Chloride Microencaps) 10 Meq Tab 10 MEQ PO friday,friday,fri for Electrolyte Replacement, #30 TAB 0 Refills Triamterene-Hydrochlorothiazide (Triamterene-Hydrochlorothiazide) 37.5-25 Mg Tab 1 TAB PO DAILY, #30 TAB 0 Refills Discontinued Medications: Glimepiride (Glimepiride) 1 Mg Tab 1 MG PO HS for Blood Sugar Management, #30 TAB 0 Refills Take with breakfast or first main meal Jose Devine MD Mar 17, 2017 08:19
[2017-03-17] MEDS: POTASSIUM CHLORIDE 8 MEQ CONTROLLED RELEASE TAB PO SCH (09:00)
[2017-03-17] MEDS: cloNIDine HCL 0.1 MG TAB PO SCH (09:00)
[2017-03-17] MEDS: LISINOPRIL 20 MG TAB PO SCH (09:00)
[2017-03-17] MEDS: SODIUM CHLORIDE 0.9% FLUSH 10 ML FLUSH IV FLUSH SCH (09:00)
[2017-03-17] MEDS: POLYETHYLENE GLYCOL 17 GM PKG PO SCH (09:00)
--- NOTE | 2017-03-17 09:07 | HHI.PR ---
Subjective Subjective Notes Resting in bed No issues Objective Vitals/I&O Vital Signs Date Time Temp Pulse Resp B/P (MAP) Pulse Ox O2 Delivery O2 Flow Rate FiO2 03/17/17 08:15 Room Air 03/17/17 04:26 46 03/17/17 04:00 98.1 20 160/72 (101) 94 03/17/17 04:00 4.00 Labs Date/Time Source Procedure Growth Status 03/13/17 00:40 Urine Clean Catch Urine Culture - Final 50-100,000 CFU/ML MIXED GRAM POSITIVE... Complete Radiology Last Impressions GI Procedure 03/13/17 0000 Signed Impressions: Service Date/Time: March 13:58 - CONCLUSION: ERCP as above. Claude uGo MD Abdomen/Pelvis CT 03/12/176 Signed Impressions: Service Date/Time: Sunday, March 12, 2017 22:27 - CONCLUSION: 1. Multiple gallstones in the region of the distal common bile duct with the largest measuring 8 mm. The common bile duct is prominent in size and likely is obstructed. 2. Thickening of the wall of the gallbladder and pericholecystic fluid and inflammatory change suggesting acute cholecystitis. Clinical correlation is recommended. 3. Cholelithiasis. 4. Uncomplicated colonic diverticulosis. 5. Calcified nonobstructing bilateral renal calculi. 6. Ventral abdominal wall hernias containing only fat. 7. Posterior peripheral calcification of the prostate gland. Temo Francois MD Gall Bladder Ultrasound 03/12/17 0000 Signed Impressions: Service Date/Time: Sunday, March 12, 2017 22:57 - CONCLUSION: 1. Cholelithiasis with mild gallbladder wall thickening and small amount of pericholecystic fluid. There was no sonographic Zuñiga's sign. 2. Prominent common bile duct measuring 10 mm with no filling defects identified in the visualized portion of the duct. The apparent stones in the distal duct could not be visualized. There is mild prominence of the central intrahepatic biliary system as well. 3. Enlarged liver with hepatic steatosis. Dez Sexton MD Cardiovascular: Regular Lungs: Clear Abdomen: Other (lap sites c/d/i; DAINA with serous fluid ) Extremities: No edema A/P Problem List: (1) S/P laparoscopic cholecystectomy ICD Codes: Z90.49 - Acquired absence of other specified parts of digestive tract Status: Acute (2) Cholecystitis, acute with cholelithiasis ICD Codes: K80.00 - Calculus of gallbladder with acute cholecystitis without obstruction Status: Acute (3) Choledocholithiasis with acute cholecystitis with obstruction ICD Codes: K80.41 - Calculus of bile duct with cholecystitis, unspecified, with obstruction Status: Acute Assessment and Plan 86 year old male s/p ERCP for CBD stone; POD 3 lap appy; with DAINA placement -Regular diet -Pain control -DC home with DAINA -Follow up at 2:[address] Vee Problem Qualifiers (1) Cholecystitis, acute with cholelithiasis: Qualified Codes: K80.01 - Calculus of gallbladder with acute cholecystitis with obstruction Nieves Desai Mar 17, 2017 09:07
--- NOTE | 2017-03-17 09:30 | HHI.DCPOC ---
Discharge Care Plan Diagnosis: (1) Cholecystitis, acute with cholelithiasis (2) Choledocholithiasis with acute cholecystitis with obstruction (3) Diabetes mellitus (4) Hypertension (5) S/P laparoscopic cholecystectomy Goals to Promote Your Health * To prevent worsening of your condition and complications * To maintain your health at the optimal level Directions to Meet Your Goals Take your medications as prescribed Follow your dietary instruction Follow activity as directed Keep your appointments as scheduled Take your immunizations and boosters as scheduled If your symptoms worsen call your PCP, if no PCP go to Urgent Care Center or Emergency Room Smoking is Dangerous to Your Health. Avoid second hand smoke Call the 24-hour hour crisis hotline for domestic abuse at Jose Devine MD Mar 17, 2017 09:30
== END 2017-03-17 12:25 | DRG 418 ==
LOC: PHED 21:42 → PHEDA 23:53 → PH3A 03-13 02:03 → N05B 03-13 12:57 → N04A 03-13 15:37
PROVIDERS: ADMIT Family Medicine; ATTEND Family Medicine
PROC: 0FC98ZZ Extirpation of Matter from Common Bile Duct, Via Natural or Artificial Opening Endoscopic (ICD-10-PCS; 2017-03-13)
PROC: 0F798DZ Dilation of Common Bile Duct with Intraluminal Device, Via Natural or Artificial Opening Endoscopic (ICD-10-PCS; 2017-03-13)
PROC: 0FT44ZZ Resection of Gallbladder, Percutaneous Endoscopic Approach (ICD-10-PCS; principal; 2017-03-14 10:46)
DX: K80.63 Calculus of gallbladder and bile duct with acute cholecystitis with obstruction (principal); N17.9 Acute kidney failure, unspecified; R18.8 Other ascites; N18.4 Chronic kidney disease, stage 4 (severe); E11.22 Type 2 diabetes mellitus with diabetic chronic kidney disease; E78.00 Pure hypercholesterolemia, unspecified; K59.00 Constipation, unspecified; I44.0 Atrioventricular block, first degree; I12.9 Hypertensive chronic kidney disease with stage 1 through stage 4 chronic kidney disease, or unspecified chronic kidney disease; H91.90 Unspecified hearing loss, unspecified ear
CPT/HCPCS: 74176; 74330; 76705; 80053; 81001; 82550; 82552; 82948; 83690; 84484; 85025; 85027; 85610; 85730; 87086; 88304; 93005; 96361; 96374; 96375; C1769; C2625; J0131; J2270; J2405; J2543; J2710; J3010; J7030

== ENCOUNTER → 2017-04-29 | Outpatient (CLI) | payer MEDICARE ==
[~2017-04-29] VITALS: Ht 172.7 cm; Wt 105.0 kg
[~2017-04-29] MED LIST changes: +ATOR10TA15 PO; -ATOR20TA42 PO; +CHLORHEXIDINE GLUCONATE 2 % 1 PACK (2 CLOTHS) TOPICAL PRN; +CLON0.1T PO; +DEXAMETHASONE SOD PHOS 4 MG/ML VIAL IV ONE; +DO NOT ADM ANY ANTICOAGULANT DRUGS PRN; +FELO10TA PO; -FELO2.5T PO; +FENO54TA PO; -FERR324T4 PO; -FISH1000 PO; -GLUCTAB PO; +GLYCOPYRROLATE 1 MG/5 ML SYRINGE IV PUSH ONE; -HYDR-2768 PO; +IOHEXOL 300 INJ 100 ML IV ONE; +KLOR8TAB PO; +LACTATED RINGER'S 1000 ML IV PRN; +LIDOCAINE HCL 1% PF 5 ML SYRINGE OTHER ONE; -METF-324 PO; +METOPROLOL TARTRATE 25 MG TAB PO PRN; +PHENYLEPH/NS 1000 MCG/10 ML SYR IV ONE; +POTA10TA15 PO; +POVIDONE IODINE 5% (ANTISEPSIS KIT) 4 APPLICATIONS EACH NARE PRN; +PROPOFOL 200 MG/20 ML AMP IV ONE; +RESP: ALBUTEROL 2.5 MG/3 ML NEB (PRN) ONE; +SODIUM CHLORID 0.9% 500 ML IV PRN; +SUCCINYLCHOLINE CHLORIDE 100 MG/5 ML SYRINGE IV PUSH ONE; -TAB-TAB PO; +TRIA37.5 PO
--- NOTE | 2017-04-29 11:58 | GIPROC ---
[facility] [address] [facility]. [facility] [place], [id number] ERCP PROCEDURE REPORT EXAM DATE: 04/29/2017 PATIENT NAME: Kian Rios MR #: [id number] BIRTHDATE: 1930 ATTENDING: Sangeetha Ortega MD ORDER #: [id number] MACHINE REPAIRER MAINTENANCE: Kenneth Wisdom and Kimberli Edwards STATUS: outpatient INDICATIONS: The patient is a 87 yr old male here for an ERCP due to established bile duct stone(s) and stent removal PROCEDURE PERFORMED: ERCP with removal of calculus/calculi ERCP with foreign body removal MEDICATIONS: None and Per Anesthesia. CONSENT: The patient understands the risks and benefits of the procedure and understands that these risks include, but are not limited to: sedation, allergic reaction, infection, perforation and/or bleeding. Alternative means of evaluation and treatment include, among others: physical exam, x-rays, and/or surgical intervention. The patient elects to proceed with this endoscopic procedure. medical equipment was checked for proper function. Hand hygiene and appropriate measures for infection prevention was taken. After the risks, benefits and alternatives of the procedure were thoroughly explained, Informed was verified, confirmed and timeout was successfully executed by the treatment team. With the patient in left semi-prone position, medications were administered intravenously.The Pentax [id number] was passed from the mouth into the esophagus and further advanced from the esophagus into the stomach. From stomach scope was directed to the second portion of the duodenum. Major papilla was aligned with the duodenoscope. The scope position was confirmed fluoroscopically. Rest of the findings/therapeutics are given below. The scope was then completely withdrawn from the patient and the procedure completed. The pulse, BP, and O2 saturation were monitored and documented by the physician and the nursing staff throughout the entire procedure. The patient was cared for as planned according to standard protocol. The patient was then discharged to recovery in stable condition and with appropriate post procedure care. The ampulla was located the second portion of the duodenum, in a position more proximal than normal. The ampulla appeared normal. Previously placed stent removed . Pancreatogram normal. Cholangiogram 2 filling defects. Balloon sweep 11.5 mm balloon x 2. Stones and debris removed. ADVERSE EVENT: There were no complications. IMPRESSIONS: 1. Normal appearing ampulla 2. Previously placed stent removed . Pancreatogram normal. Cholangiogram 2 filling defects. Balloon sweep 11.5 mm balloon x 2. Stones and debris removed RECOMMENDATIONS: 1. Follow-up: GI clinic 2 week(s) 2. Liver enzymes REPEAT EXAM: Return as needed for ERCP Sangeetha Ortega MD eSigned: Sangeetha Ortega MD 04/29/2017 11:58 AM cc: PATIENT NAME: Kian Rios MR#: [id number]
[2017-04-29 13:13] VITALS: BP 157/68; PULSE 60; RESP 18; TEMP 98; O2SAT 98
--- NOTE | 2017-04-29 14:35 | RADRPT ---
EXAM DATE/TIME: 04/29/2017 11:45 [facility] COMPARISON: GI LAB ERCP, March 13, 2017, 13:58. INDICATIONS : Obstruction, stent removal and stone removal. FLUORO TIME: 1.5 minutes IMAGE COUNT: 2 CONTRAST: Instilled by Ordering Physician MEDICAL HISTORY : Diabetes mellitus type II. Hypercholesterolemia. Hypertension. Gastroesophageal reflux disease. SURGICAL HISTORY : Angioplasty. Umbilical hernia repair. Cardiac cath. ENCOUNTER: Initial ACUITY: 1 day PAIN SCORE: Non-responsive. LOCATION: Right upper quadrant FINDINGS: An ERCP was performed by the ordering physician. The images demonstrate the pancreatic duct and common bile duct to be normal in caliber. I see no def inite retained stones. The patient biliary stent has been removed. CONCLUSION: ERCP as above. Alec Wray MD on April 29, 2017 at 14:33 Board Certified Radiologist. This report was verified electronically.
--- NOTE | 2017-04-29 17:20 | EKG ---
Date Performed: 04/29/2017 Time Performed: 08:45:51 PTAGE: 87 years EKG: SINUS BRADYCARDIA MARKED LEFT AXIS DEVIATION MODERATE INTRAVENTRICULAR CONDUCTION DELAY NON SPECIFIC ST & T-WAVE ABNORMALITY ABNORMAL ECG PREVIOUS TRACING : 03/12/2017 22.21 DOCTOR: Miko Jones Interpretating Date/Time 04/29/2017 17:19:16
== END ==
LOC: HEND 08:22
PROVIDERS: ATTEND Internal Medicine Gastroenterology
DX: K80.50 Calculus of bile duct without cholangitis or cholecystitis without obstruction (principal); K57.90 Diverticulosis of intestine, part unspecified, without perforation or abscess without bleeding; E11.9 Type 2 diabetes mellitus without complications; I10 Essential (primary) hypertension; G47.30 Sleep apnea, unspecified
CPT/HCPCS: 00732; 43264; 43275; 74330; 93005; C1769; J3010; J7613; J0330; J1100; J2370

== ENCOUNTER 2018-02-10 02:29 | Inpatient (IN) ==
--- NOTE | 2018-02-10 02:48 | ED ---
HPI General Chief Complaint: Altered Mental Status Stated Complaint: poss uti Time Seen by Provider: 02/10/18 02:37 Source: EMS Mode of arrival: EMS Limitations: altered mental status History of Present Illness HPI narrative: According to retirement, the patient has been more more somnolent and more confused and unable to follow commands or instructions over the last 2 days. According to EMS the patient had a fever of 102 during transport. Past medical history according to [facility] is a history of hypertension coronary artery disease and diabetes MD complaint: Reports altered mental status Timing confirmed by: caregiver Severity: moderate Consistency of symptoms: getting worse Associated symptoms: Reports denies other symptoms Related Data Home Medications Medication Instructions Recorded Confirmed aspirin 81 mg PO DAILY 02/10/18 02/10/18 atorvastatin 10 mg PO DAILY 02/10/18 02/10/18 cetirizine [Zyrtec] 10 mg PO DAILY 02/10/18 02/10/18 clonidine HCl 0.1 mg PO BID 02/10/18 02/10/18 fenofibrate 54 mg PO DAILY 02/10/18 02/10/18 lisinopril 40 mg PO DAILY 02/10/18 02/10/18 potassium chloride [Klor-Con 10] 10 meq PO DAILY 02/10/18 02/10/18 triamterene-hydrochlorothiazid 1 tab PO DAILY 02/10/18 02/10/18 Allergies Allergy/AdvReac Type Severity Reaction Status Date / Time No Known Allergies Allergy Unverified 04/29/17 08:51 Review of Systems ROS Unobtainable ROS Unobtainable: unobtainable due to mental status PMFSH History History Provided By: Copy Coordinator / EMT Medical History Medical History CAD (coronary artery disease) (Acute) Diabetes (Acute) HTN (hypertension) (Acute) Social History Social History Substance History: Unable to Obtain Smoking Status: Cognitive impairment How Often Do You Have a Drink Containing Alcohol: Unable to Obtain Recent Travel in [facility] within the Last 8 Weeks: No Recent Out of Country Travel within the Last 8 Weeks: No Exam Narrative Exam Narrative: GENERAL: Elderly male somnolent unable to provide history or follow directions well SKIN: Warm and dry. HEAD: Atraumatic. Normocephalic. EYES: Pupils equal and round. No scleral icterus. No injection or drainage. ENT: No nasal bleeding or discharge. Mucous membranes pink and moist. NECK: Trachea midline. No JVD. CARDIOVASCULAR: Regular rate and rhythm. no rubs or gallops RESPIRATORY: No accessory muscle use. Clear to auscultation. Breath sounds equal bilaterally. GASTROINTESTINAL: Abdomen soft, non-tender, nondistended. No rebound or guarding...depends on, fully saturated. MUSCULOSKELETAL: Extremities without clubbing, cyanosis, or edema. No obvious deformities. NEUROLOGICAL: somnolent, breathing spontaneously on his own, withdraws all extremities to pain. 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 Random glucose 302 Acute on chronic renal insufficiency with creatinine increased from 1.83 back on March 2017 up to 2.88 today Lactic acid elevated at 5.7 Total CPK is elevated at 1541 this is somewhat concerning for mild rhabdomyolysis or early Troponin elevated at 0.11 most likely secondary to to ACS, secondary to CK-MB and CK-MB percent being normal so this may be chronic somewhere up to 7 days ago perhaps. UA shows evidence of UTI Chest x-ray read by radiologist shows negative examination Patient will be provided with IV fluid bolus, Rocephin IV, currently we are unable to have the patient follow commands very well and he would be too high risk for aspiration to provide the patient with p.o. aspirin so rectal aspirin will be given. Medical Screen Exam Complete: Yes Emergency Medical Condition: Yes Lab Data Result diagrams: 02/10/18 02:50 02/10/18 02:50 Lab Results 02/10/18 02/10/18 02/10/18 Range/Units 02:50 02:50 02:50 WBC 12.8 H (4.0-11.0) th/mm3 RBC 4.69 (4.50-5.90) mil/mm3 Hgb 14.7 (13.0-17.0) gm/dL Hct 41.9 (39.0-51.0) % MCV 89.2 (80.0-100.0) fL MCH 31.3 (27.0-34.0) pg MCHC 35.1 (32.0-36.0) % RDW 13.7 (11.6-17.2) % Plt Count 235 (150-450) th/mm3 MPV 9.6 (7.0-11.0) fL Neut % (Auto) 76.9 H (16.0-70.0) % Lymph % (Auto) 14.8 (9.0-44.0) % [place] % (Auto) 7.3 (0.0-8.0) % Eos % (Auto) 0.3 (0.0-4.0) % Baso % (Auto) 0.7 (0.0-2.0) % Neut # (Auto) 9.8 H (1.8-7.7) th/mm3 Lymph # (Auto) 1.9 (1.0-4.8) th/mm3 [place] # (Auto) 0.9 (0.0-0.9) th/mm3 Eos # (Auto) 0.0 (0.0-0.4) th/mm3 Baso # (Auto) 0.1 (0.0-0.2) th/mm3 WBC Differential . Differential Comment Auto diff final PT 12.5 H (9.8-11.6) sec INR 1.2 Ratio APTT 27.5 (23.4-31.7) sec Sodium 136 (136-145) meq/L Potassium 3.9 (3.5-5.1) meq/L Chloride 98 (98-107) meq/L Carbon Dioxide 23.0 (21.0-32.0) meq/L Anion Gap 15 (5-15) meq/L BUN 29 H (7-18) mg/dL Creatinine 2.88 H (0.60-1.30) mg/dL Estimated GFR 21 L (>89) mL/min Random Glucose 302 H (74-106) mg/dL Lactic Acid (0.4-2.0) mmol/L Calcium 9.1 (8.5-10.1) mg/dL Total Bilirubin 1.6 H (0.2-1.0) mg/dL AST 42 H (15-37) U/L ALT 26 (12-78) U/L Alkaline Phosphatase 40 L (45-117) U/L Total Creatine Kinase 1541 H (39-308) U/L CK-MB (CK-2) 1.8 (0.5-3.6) ng/mL CK-MB (CK-2) % 0.1 (0.0-4.0) % Troponin I 0.11 H (0.02-0.05) ng/mL Total Protein 7.1 (6.4-8.2) g/dL Albumin 3.5 (3.4-5.0) g/dL Lipase 60 L (73-393) U/L Urine Color (Yellw/Straw) Urine Clarity (Clear) Urine pH (5.0-8.5) Ur Specific [place] (1.002-1.035) Urine Protein (Neg-Trace) mg/dL Urine Glucose (UA) (Negative) mg/dL Urine Ketones (Negative) mg/dL Urine Occult Blood (Negative) Urine Nitrate (Negative) Urine Bilirubin (Negative) Urine Urobilinogen (Less than 2) mg/dL Ur Leukocyte Esterase (Negative) Urine RBC (0-3) /hpf Urine WBC (0-5) /hpf Ur Squamous Epith Cells (0-5) /hpf Hyaline Casts (0-3) /lpf Urine Mucus (Occasional) /lpf Micro UA Comment Ur Microscopic Review Urine Culture Comments 02/10/18 02/10/18 Range/Units 02:50 03:00 WBC (4.0-11.0) th/mm3 RBC (4.50-5.90) mil/mm3 Hgb (13.0-17.0) gm/dL Hct (39.0-51.0) % MCV (80.0-100.0) fL MCH (27.0-34.0) pg MCHC (32.0-36.0) % RDW (11.6-17.2) % Plt Count (150-450) th/mm3 MPV (7.0-11.0) fL Neut % (Auto) (16.0-70.0) % Lymph % (Auto) (9.0-44.0) % [place]son % (Auto) (0.0-8.0) % Eos % (Auto) (0.0-4.0) % Baso % (Auto) (0.0-2.0) % Neut # (Auto) (1.8-7.7) th/mm3 Lymph # (Auto) (1.0-4.8) th/mm3 [place] # (Auto) (0.0-0.9) th/mm3 Eos # (Auto) (0.0-0.4) th/mm3 Baso # (Auto) (0.0-0.2) th/mm3 WBC Differential Differential Comment PT (9.8-11.6) sec INR Ratio APTT (23.4-31.7) sec Sodium (136-145) meq/L Potassium (3.5-5.1) meq/L Chloride (98-107) meq/L Carbon Dioxide (21.0-32.0) meq/L Anion Gap (5-15) meq/L BUN (7-18) mg/dL Creatinine (0.60-1.30) mg/dL Estimated GFR (>89) mL/min Random Glucose (74-106) mg/dL Lactic Acid 5.7 H* (0.4-2.0) mmol/L Calcium (8.5-10.1) mg/dL Total Bilirubin (0.2-1.0) mg/dL AST (15-37) U/L ALT (12-78) U/L Alkaline Phosphatase (45-117) U/L Total Creatine Kinase (39-308) U/L CK-MB (CK-2) (0.5-3.6) ng/mL CK-MB (CK-2) % (0.0-4.0) % Troponin I (0.02-0.05) ng/mL Total Protein (6.4-8.2) g/dL Albumin (3.4-5.0) g/dL Lipase (73-393) U/L Urine Color Yellow (Yellw/Straw) Urine Clarity Hazy H (Clear) Urine pH 7.0 (5.0-8.5) Ur Specific [place] 1.013 (1.002-1.035) Urine Protein 100 H (Neg-Trace) mg/dL Urine Glucose (UA) 50 (Negative) mg/dL Urine Ketones Negative (Negative) mg/dL Urine Occult Blood Moderate H (Negative) Urine Nitrate Negative (Negative) Urine Bilirubin Negative (Negative) Urine Urobilinogen 2.0 H (Less than 2) mg/dL Ur Leukocyte Esterase Negative (Negative) Urine RBC 4 H (0-3) /hpf Urine WBC 4 (0-5) /hpf Ur Squamous Epith Cells <1 (0-5) /hpf Hyaline Casts 19 (0-3) /lpf Urine Mucus Few H (Occasional) /lpf Micro UA Comment Cath-culture not ind Ur Microscopic Review Not Reportable Urine Culture Comments Cath-cult not ind Imaging Data Radiologist's impression: Chest X-Ray 02/10/18 02:50 CONCLUSION: Negative examination. Head CT 02/10/18 02:50 CONCLUSION: 1. Pituitary and suprasellar mass 2. Recommend follow-up evaluation with contrasted pituitary protocol MRI . Discharge Plan Discharge Disposition Patient Disposition: 30 Still Patient Discharge Condition Condition: Fair Discharge Details Diagnosis: Altered mental status, Suprasellar mass, Elevated troponin Physicians Team ED Provider: Red Jerome Primary Care Provider: Manuel Gilliland Rxs /Orders / Referrals /Forms Prescriptions: No Action clonidine HCl 0.1 mg Tablet 0.1 mg PO BID RF: 0 atorvastatin 10 mg Tablet 10 mg PO DAILY RF: 0 potassium chloride [Klor-Con 10] 10 mEq Tablet Extended Release 10 meq PO DAILY RF: 0 triamterene-hydrochlorothiazid 37.5-25 mg Tablet 1 tab PO DAILY RF: 0 aspirin 81 mg Tablet,Chewable 81 mg PO DAILY RF: 0 lisinopril 40 mg Tablet 40 mg PO DAILY RF: 0 fenofibrate 54 mg Tablet 54 mg PO DAILY RF: 0 cetirizine [Zyrtec] 10 mg Capsule 10 mg PO DAILY RF: 0 Discharge Interventions Interventions: Vital Signs Last Done: 02/10/18 02:45 Status ED Status: With Doctor
[2018-02-10 03:25] LABS: Baso # (Auto) 0.1 th/mm3 (0.0-0.2); Baso % (Auto) 0.7 % (0.0-2.0); Eos % (Auto) 0.3 % (0.0-4.0); Hematocrit 41.9 % (39.0-51.0); Hemoglobin 14.7 gm/dL (13.0-17.0); Lymph # (Auto) 1.9 th/mm3 (1.0-4.8); Lymph % (Auto) 14.8 % (9.0-44.0); Mean Corpuscular HGB Conc 35.1 % (32.0-36.0); Mean Corpuscular Hemoglobin 31.3 pg (27.0-34.0); Mean Corpuscular Volume 89.2 fL (80.0-100.0); Mean Platelet Volume 9.6 fL (7.0-11.0); Mono # (Auto) 0.9 th/mm3 (0.0-0.9); Mono % (Auto) 7.3 % (0.0-8.0); Neut # (Auto) 9.8 th/mm3 (1.8-7.7); Neut % (Auto) 76.9 % (16.0-70.0); Platelet Count 235 th/mm3 (150-450); Red Blood Count 4.69 mil/mm3 (4.50-5.90); Red Cell Distribution Width 13.7 % (11.6-17.2); White Blood Count 12.8 th/mm3 (4.0-11.0)
[2018-02-10 03:32] LABS: Bilirubin,Urine Negative (Negative); Clarity,Urine Hazy (Clear); Color,Urine Yellow (Yellw/Straw); Glucose,Urine (UA) 50 mg/dL (Negative); Hyaline Casts,Urine 19 /lpf (0-3); Leukocyte Esterase,Urine Negative (Negative); Mucus,Urine Few /lpf (Occasional); Nitrite,Urine Negative (Negative); Specific Gravity,Urine 1.013 (1.002-1.035); Squamous Epithelial Cell,Urine <1 /hpf (0-5)
--- NOTE | 2018-02-10 03:34 | CT ---
EXAM DATE: 02/10/2018 3:19 AM EST AGE/SEX: 87 years / Male INDICATIONS: Altered mental status. Fever. CLINICAL DATA: This is the patient's initial encounter. Patient reports that signs and symptoms have been present for 2 days and indicates a pain score of Nonresponsive. MEDICAL/SURGICAL HISTORY: Cardiovascular disease. Diabetes. Hypertension. None. RADIATION DOSE: 56.38 CTDI (mGy) COMPARISON: C, CHEST 1V SINGLE AP, 02/10/2018. . TECHNIQUE: CT of the head without contrast. Using automated exposure control and adjustment of the mA and/or kV according to patient size, radiation dose was kept as low as reasonably achievable to ob tain optimal diagnostic quality images. DICOM format image data is available electronically for revi ew and comparison. FINDINGS: Examination reveals a pituitary and suprasellar region mass which appears to be producing expansile r emodeling of the floor of the sella and likely extends into the left cavernous sinus. The brain is el sewhere symmetric and unremarkable. There is no evidence of intracranial hemorrhage. Nothing to sugge st acute infarction. The sinuses and mastoids are clear. CONCLUSION: 1. Pituitary and suprasellar mass 2. Recommend follow-up evaluation with contrasted pituitary protocol MRI . Electronically signed by: Brian Acosta MD 02/10/2018 3:32 AM EST
[2018-02-10 03:37] LABS: Activated Partial Thrombo Time 27.5 sec (23.4-31.7); INR 1.2 Ratio; Prothrombin Time 12.5 sec (9.8-11.6)
[2018-02-10 03:41] LABS: Alanine Aminotransferase 26 U/L (12-78); Albumin 3.5 g/dL (3.4-5.0); Anion Gap 15 meq/L (5-15); Aspartate Aminotransferase 42 U/L (15-37); Blood Urea Nitrogen 29 mg/dL (7-18); Calcium 9.1 mg/dL (8.5-10.1); Chloride 98 meq/L (98-107); Glomerular Filtration Rate 21 mL/min (>89); Glucose,Random 302 mg/dL (74-106); Lipase 60 U/L (73-393); Potassium 3.9 meq/L (3.5-5.1); Sodium 136 meq/L (136-145)
--- NOTE | 2018-02-10 03:53 | XR ---
EXAM DATE: 02/10/2018 3:49 AM EST AGE/SEX: 87 years / Male INDICATIONS: Short of breath. CLINICAL DATA: This is the patient's initial encounter. Patient reports that signs and symptoms have been present for 1 day and indicates a pain score of 0/10. MEDICAL/SURGICAL HISTORY: Non-responsive. Non-responsive. COMPARISON: No prior exams available for comparison. FINDINGS: A single AP view of the chest demonstrates the lungs to be symmetrically aerated without evidence of mass, infiltrate or effusion. The cardiomediastinal contours are unremarkable. Osseous structures a re intact. CONCLUSION: Negative examination. Electronically signed by: Brian Acosta MD 02/10/2018 3:52 AM EST
[2018-02-10 03:55] LABS: Alkaline Phosphatase 40 U/L (45-117); Creatine Kinase 1541 U/L (39-308); Total Protein 7.1 g/dL (6.4-8.2); Troponin I 0.11 ng/mL (0.02-0.05)
[2018-02-10 04:07] LABS: CKMB Percent 0.1 % (0.0-4.0); Creatine Kinase MB 1.8 ng/mL (0.5-3.6)
[2018-02-10] MEDS ORDERED: Sod Chloride 0.9% Inj 1,000 ML IV.SIG ONE (04:22)
[2018-02-10] MEDS ORDERED: Aspirin 300 MG Supp RECTAL ONE (04:27)
[2018-02-10] MEDS ORDERED: Enoxaparin Inj 60 MG/0.6 ML Syringe SQ ONE (04:27)
[2018-02-10] MEDS ORDERED: Sodium Chlor 0.9% Inj 500 ML IV.SIG SCH (05:00)
[2018-02-10 06:08] LABS: ABG Base Excess 0.6 mmol/L (-2-2); ABG PCO2 38 mmHg (38-42); ABG PO2 73 mmHg (61-120)
[2018-02-10] MEDS ORDERED: Bisacodyl 10 MG Supp RECTAL PRN (06:10)
[2018-02-10] MEDS ORDERED: Dextrose 50% in Water 50 ML Vial IV.PUSH PRN (06:11)
[2018-02-10] MEDS ORDERED: Sod Chloride 0.9% Inj 1,000 ML IV.CONT SCH (06:15)
[2018-02-10] MEDS ORDERED: Sodium Chloride 0.9% 2 ML Flush PRN IV.FLUSH (06:33)
[2018-02-10] MEDS: Sod Chloride 0.9% Inj 1,000 ML IV.CONT SCH ×3 (06:51→21:33)
[2018-02-10] MEDS: Insulin NovoLOG Aspart Correctional Sugar Inj SQ SCH ×4 (07:34→21:28)
--- NOTE | 2018-02-10 07:59 | ECG ---
Date Performed: 02/10/2018 Time Performed: 03:25:39 PTAGE: 87 years EKG: ATRIAL FIBRILLATION LEFT ANTERIOR FASCICULAR BLOCK Nonspecific ST and T wave abnormalities A ABNORMAL ECG Compared to prior electrocardiogram, Atrial fibrillation appears to have replaced Sinu s rhythm . PREVIOUS TRACING : 04/29/2017 08.45 DOCTOR: Jerry Valdez Interpretating Date/Time 02/10/2018 07:58:10
[2018-02-10] MEDS: Sodium Chloride 0.9% 2 ML Flush BID IV.FLUSH SCH ×2 (09:35→21:29)
[2018-02-10 10:22] LABS: CKMB Percent 0.3 % (0.0-4.0); Creatine Kinase MB 25.1 ng/mL (0.5-3.6)
--- NOTE | 2018-02-10 11:39 | ECG ---
Date Performed: 02/10/2018 Time Performed: 10:00:36 PTAGE: 87 years EKG: Sinus rhythm WITH FREQUENT VENTRICULAR PREMATURE COMPLEXES BORDERLINE LEFT AXIS DEVIATION MODERATE INTRAVENTRICUL AR CONDUCTION DELAY Nonspecific ST and T wave abnormalities ABNORMAL ECG Compared to prior electrocar diogram, Probable sinus rhythm has replaced atrial fibrillation, PVCs are present and STT wave change s are more marked. PREVIOUS TRACING : 02/10/2018 03.25 DOCTOR: Jerry Valdez Interpretating Date/Time 02/10/2018 11:38:35
--- NOTE | 2018-02-10 11:42 | P.HPIM ---
History of Present Illness Service: [facility] Primary Care Physician: Manuel Gilliland MD Chief Complaint: Altered mental status History of Present Illness: Patient is an 87-year-old male who lives in assisted living facility. He was noted to be more somnolent and more confused and unable to follow commands or instructions over the last few days. According to EMS the patient had a fever of 102 during transport. Past medical history according to the [facility] is history of hypertension and coronary artery disease and diabetes. Now that he has been given fluids and antibiotics. He is now awake alert and oriented x3 talkative and cooperative and can follow commands We will continue fluids and IV antibiotics With case management consult with physical therapy and occupational therapy to eval and treat and speech therapy And patient will be monitored overnight and labs will be followed Inpatient Certification: I certify that the inpatient services were ordered in accordance with Medicare regulations governing the order. This includes certification that hospital inpatient services are reasonable and necessary and in the case of services not specified as inpatient-only under 42 CFR 419.22(n), that they are appropriately provided as inpatient services in accordance to with the 2-midnight benchmark under 43 CFR 412.3(e) Estimated Total Length of Stay (Days): 2 Plans for Post Hospital Care: Not yet determined Review of Systems All other systems reviewed negative except as stated in [facility]PI [facility] - History History Provided By: Mirror Silverer / EMT - Medical History Medical History: Medical History (Last Updated 02/10/18 @ 11:22 by Amor Dodd DO) CAD (coronary artery disease) Diabetes Diverticulosis Gastritis HTN (hypertension) Hard of hearing Hyperlipidemia Internal hemorrhoids Obesity Obstructive sleep apnea Upper gastrointestinal hemorrhage - Surgical History Surgical History: Surgical History (Last Updated 02/10/18 @ 11:22 by Amor Dodd DO) H/O umbilical hernia repair History of appendectomy Hx of cholecystectomy - Family History Family History: Family History (Last Reviewed 02/10/18 @ 11:23 by Amor Dodd DO) Other Family history of hypertension - Social History I have reviewed the patient's Social History: Yes - Tobacco History Second Hand Smoke Exposure: No Tobacco Use In Past 30 Days: No Smoking Status: Never smoker - Alcohol History How Often Do You Have a Drink Containing Alcohol: Monthly or less - Substance Use History Substance History: No History of Abuse, Unable to Obtain - Travel History History of Recent Travel: No Recent Travel in the [place] Within the Last 8 Weeks: No Recent Travel Out of the Country Within the Last 8 Weeks: No - Immunization History Tetanus Immunization: Unable to Assess Medications and Allergies Active Medications: Active Medications Al Hydroxide/Mg Hydroxide (Milk Of Magnesia Liq) 30 ml PO Q12H PRN PRN Reason: Mild Constipation Bisacodyl (Dulcolax Supp) 10 mg RECTAL DAILY PRN PRN Reason: SEVERE CONSITIPATION Dextrose (D50w Vial) 50 ml IV.PUSH UNSCH PRN PRN Reason: PER HYPOGLYCEMIA PROTOCOL Glucagon (Glucagon Inj) 1 mg OTHER PRN PRN PRN Reason: for Hypoglycemia Protocol Sodium Chloride (Ns Inj) 1,000 mls @ 84 mls/hr IV.CONT .[id number] [facility] Last Admin: 02/10/18 06:51 Dose: 84 mls/hr Insulin Aspart (Novolog Insulin Correctional Sugar Inj) 0 unit SQ ACHS [facility]; Protocol Last Admin: 02/10/18 07:34 Dose: 1 unit Lactulose (Lactulose Liq) 30 ml PO DAILY PRN PRN Reason: SEVERE CONSITIPATION Sennosides (Senokot) 17.2 mg PO Q12H PRN PRN Reason: Moderate Constipation Sodium Chloride (Ns Flush) 2 ml IV.FLUSH BID [facility] Last Admin: 02/10/18 09:35 Dose: 2 ml Sodium Chloride (Ns Flush) 2 ml IV.FLUSH PRN PRN PRN Reason: FLUSH AFTER USING IV ACCESS Last Admin: 02/10/18 08:56 Dose: 2 ml Allergies Allergy/AdvReac Type Severity Reaction Status Date / Time No Known Allergies Allergy Unverified 04/29/17 08:51 Home Medications Medication Instructions Recorded Confirmed Type aspirin 81 mg PO DAILY 02/10/18 02/10/18 History atorvastatin 10 mg PO DAILY 02/10/18 02/10/18 History cetirizine [Zyrtec] 10 mg PO DAILY 02/10/18 02/10/18 History clonidine HCl 0.1 mg PO BID 02/10/18 02/10/18 History fenofibrate 54 mg PO DAILY 02/10/18 02/10/18 History lisinopril 40 mg PO DAILY 02/10/18 02/10/18 History potassium chloride [Klor-Con 10] 10 meq PO DAILY 02/10/18 02/10/18 History triamterene-hydrochlorothiazid 1 tab PO DAILY 02/10/18 02/10/18 History Exam Vital signs: Vital Signs 02/10/18 02:38 02/10/18 02:45 02/10/18 02:58 Temperature 99.1 F 99.1 F Pulse Rate 88 82 Respiratory Rate 20 20 Blood Pressure 152/72 H 152/72 H Pulse Oximetry 96 96 96 02/10/18 05:58 02/10/18 06:45 02/10/18 07:10 Temperature 98.1 F Pulse Rate 72 78 Respiratory Rate 20 Blood Pressure 163/90 H Pulse Oximetry 95 97 02/10/18 07:28 02/10/18 09:34 Temperature 99.1 F 98.7 F Pulse Rate 70 67 Respiratory Rate 20 18 Blood Pressure 141/65 H 153/88 H Pulse Oximetry 95 98 Intake & Output 02/09/18 02/10/18 02/10/18 18:59 06:59 18:59 Intake Total 1600 / 1600 Output Total 500 / 500 Balance 1600 / 1600 -500 / -500 Weight 113.398 kg Intake: IV 1600 / 1600 NS Inj 1,000 ML @ Wide Open IV. 1000 / 1000 SIG BOLUS ONE Rx#:[id number] NS Inj 500 ML @ 1000 mls/hr IV. 500 / 500 SIG BOLUS WYATT Rx#:[id number] Rocephin Inj 1,000 MG In NS Inj 100 / 100 100 ML @ 200 mls/hr IV.SIG ONCE ONE Rx#:[id number] Output: Urine Amount (Catheter) 500 / 500 Indwelling Urethral Catheter 500 / 500 Narrative: GENERAL: Awake alert and oriented x3 talkative and cooperative knows that he is at [facility], knows that he is at [place], knows that the president of [facility] is Dalton Hernandez, knows that it is 2007 SKIN: Warm and dry. HEAD: Atraumatic. Normocephalic. EYES: Pupils equal and round. No scleral icterus. No injection or drainage. EOMI ENT: No nasal bleeding or discharge. Mucous membranes pink and moist. Tongue is midline NECK: Trachea midline. No JVD. Supple CARDIOVASCULAR: Regular rate and rhythm. S1-S2 no S3 or S4 RESPIRATORY: No accessory muscle use. Clear to auscultation. Breath sounds equal bilaterally. GASTROINTESTINAL: Abdomen soft, non-tender, nondistended. Hepatic and splenic margins not palpable. MUSCULOSKELETAL: Extremities without clubbing, cyanosis, or edema. No obvious deformities. NEUROLOGICAL: Awake and alert. No obvious cranial nerve deficits. Motor grossly within normal limits. Five out of 5 muscle strength in the arms and legs. Normal speech. PSYCHIATRIC: Appropriate mood and affect; insight and judgment normal. Results - Labs CBC & Chem 7: 02/10/18 02:50 02/10/18 02:50 Labs: Short CBC 02/10/18 Range/Units 02:50 WBC 12.8 H (4.0-11.0) th/mm3 Hgb 14.7 (13.0-17.0) gm/dL Hct 41.9 (39.0-51.0) % Plt Count 235 (150-450) th/mm3 BMP 02/10/18 02:50 Sodium 136 Potassium 3.9 Chloride 98 Carbon Dioxide 23.0 BUN 29 H Creatinine 2.88 H Calcium 9.1 Cardiac Enzymes 02/10/18 02/10/18 Range/Units 02:50 09:00 Total Creatine Kinase 1541 H 7434 H (39-308) U/L CK-MB (CK-2) 1.8 25.1 H (0.5-3.6) ng/mL Troponin I 0.11 H (0.02-0.05) ng/mL Liver Function 02/10/18 Range/Units 02:50 Total Bilirubin 1.6 H (0.2-1.0) mg/dL AST 42 H (15-37) U/L ALT 26 (12-78) U/L Alkaline Phosphatase 40 L (45-117) U/L Albumin 3.5 (3.4-5.0) g/dL Urine 02/10/18 Range/Units 02:50 Urine Color Yellow (Yellw/Straw) Urine Clarity Hazy H (Clear) Urine pH 7.0 (5.0-8.5) Ur Specific [place] 1.013 (1.002-1.035) Urine Protein 100 H (Neg-Trace) mg/dL Urine Glucose (UA) 50 (Negative) mg/dL - Imaging Impressions Chest X-Ray 02/10/18 02:50 CONCLUSION: Negative examination. Head CT 02/10/18 02:50 CONCLUSION: 1. Pituitary and suprasellar mass 2. Recommend follow-up evaluation with contrasted pituitary protocol MRI . Caprini VTE Risk Assessment Caprini VTE Risk Assessment: Moderate/High Risk (score >= 2) Caprini Risk Assessment Model: Point Value = 1 Point Value = 2 Point Value = 3 Point Value = 5 Age 41-60 Minor surgery BMI > 25 kg/m2 Swollen legs Varicose veins or History of unexplained or recurrent spontaneous Oral contraceptives or hormone replacement Sepsis (< 1 month) Serious lung disease, including pneumonia (< 1 month) Abnormal pulmonary function Acute myocardial infarction Congestive heart failure (< 1 month) History of inflammatory bowel disease Medical patient at bed rest Age 61-74 Arthroscopic surgery Major open surgery (> 45 min) Laparoscopic surgery (> 45 min) Malignancy Confined to bed (> 72 hours) Immobilizing plaster cast Central venous access Age >= 75 History of VTE Family history of VTE Factor V Leiden Prothrombin [id number] Lupus anticoagulant Anticardiolipin antibodies Elevated serum homocysteine Heparin-induced thrombocytopenia Other congenital or acquired thrombophilia Stroke (< 1 month) Elective arthroplasty Hip, pelvis, or leg fracture Acute spinal cord injury (< 1 month) Prophylaxis Regimen: Total Risk Factor Score Risk Level Prophylaxis Regimen 0-1 Low Early ambulation 2 Moderate Order ONE of the following: *Sequential Compression Device (SCD) *Heparin 5000 units SQ BID 3-4 Higher Order ONE of the following medications: *Heparin 5000 units SQ TID *Enoxaparin/Lovenox 40 mg SQ daily (WT < 150 kg, CrCl > 30 mL/min) *Enoxaparin/Lovenox 30 mg SQ daily (WT < 150 kg, CrCl > 10-29 mL/min) *Enoxaparin/Lovenox 30 mg SQ BID (WT < 150 kg, CrCl > 30 mL/min) AND/OR *Sequential Compression Device (SCD) 5 or more Highest Order ONE of the following medications: *Heparin 5000 units SQ TID (Preferred with Epidurals) *Enoxaparin/Lovenox 40 mg SQ daily (WT < 150 kg, CrCl > 30 mL/min) *Enoxaparin/Lovenox 30 mg SQ daily (WT < 150 kg, CrCl > 10-29 mL/min) *Enoxaparin/Lovenox 30 mg SQ BID (WT < 150 kg, CrCl > 30 mL/min) AND *Sequential Compression Device (SCD) Assessment and Plan - Plan Altered mental status much improved with fluids and antibiotics Much improvement with 1 dose of Rocephin Mild leukocytosis-continue Rocephin Dehydration continue on fluids 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 Diabetes mellitus continue on Accu-Cheks before meals and at bedtime with sliding scale coverage Rhabdomyolysis with total CK elevated at 1541 Borderline troponins of 0.11 Lactic acid increased at 5.7 down to 1.8 with fluids Urinalysis shows no active urinary tract infection Chest x-ray shows no pneumonia Possible bronchitis continue on Rocephin and Zithromax Continue on fluids Antibiotics Continue physical therapy and occupational therapy Continue Pepcid Lovenox 30 mg subcu daily PITUITARY MASS WILL GET MRI Code Status: Full code Discussed Condition With: RN and patient Discharge Planning: Pending improvement
[2018-02-10] MEDS: Azithromycin Inj 500 MG in Sodium Chlor 0.9% Inj 250 ML IV.SIG SCH (12:21)
[2018-02-10 13:19] LABS: Free T4 (Free Thyroxine) 0.76 ng/dL (0.76-1.46); Thyroid Stimulating Hormone 1.02 uIU/mL (0.358-3.740); Troponin I 0.28 ng/mL (0.02-0.05)
[2018-02-10 13:31] LABS: CKMB Percent 0.3 % (0.0-4.0)
[2018-02-10] MEDS ORDERED: Acetaminophen 325 MG Tablet PO ONE (13:35)
[2018-02-10] MEDS ORDERED: Naloxone Inj 0.4 MG/ML Vial IV.PUSH PRN (14:01)
[2018-02-10] MEDS ORDERED: Morphine Sulfate Inj 2 MG/ML Vial IV.PUSH PRN (14:01)
[2018-02-10] MEDS ORDERED: Acetaminophen 325 MG Tablet PO PRN (14:01)
[2018-02-10] MEDS ORDERED: oxyCODONE/Acetaminophen 10/325 Tablet PO PRN (14:01)
[2018-02-10] MEDS ORDERED: Morphine Inj 4 MG/ML Vial IV.PUSH PRN ×3 (14:01)
--- NOTE | 2018-02-10 15:34 | MR ---
EXAM DATE: 02/10/2018 3:13 PM EST AGE/SEX: 87 years / Male INDICATIONS: Patient with altered mental status and abnormal head CT demonstrating a pituitary and cesar prasellar mass. CLINICAL DATA: This is the patient's initial encounter. Patient reports that signs and symptoms have been present for 1 day and indicates a pain score of 7/10. MEDICAL/SURGICAL HISTORY: Hypertension. Renal failure, chronic. Cholecystectomy. Umbilical her vitor sx. COMPARISON: [facility] – [place], CT HEAD W/O CONTRAST, 02/10/2018. . TECHNIQUE: Multiplanar, multisequence examination of the brain was performed without contrast. No int ravenous contrast was given secondary to the patient's renal failure. FINDINGS: Cerebrum: The ventricles are normal for age. No evidence of midline shift, mass lesion, hemorrhage or acute infarction. No extraaxial fluid collections are seen. The pituitary fossa is enlarged and r emodeled. There is a pituitary and suprasellar mass measuring up to approximately 1.4 x 1.6 x 2.8 cm in greatest AP by transverse by craniocaudal dimension. This extends above the sella by approximately 1 cm into the region of the optic chiasm. There is poor delineation of cavernous sinuses due to lack of White Matter: On the FLAIR weighted images there is increased signal noted in the periventricular wh ite matter characteristic of chronic small vessel ischemic change. Posterior Fossa: The cerebellum and brainstem are intact. The 4th ventricle is midline. The cerebel lopontine angle is unremarkable. The cerebellar tonsils are normal in position. Diffusion Imaging: No focal areas of restricted diffusion are seen. No evidence of acute infarction . Extracranial: The visualized portions of the orbits and paranasal sinuses are unremarkable. CONCLUSION: 1. 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 This study is limited due t o the lack of intravenous contrast. 2. Mild atrophy and chronic small vessel ischemic change. Electronically signed by: Dez Sexton MD 02/10/2018 3:33 PM EST
[2018-02-10 16:18] LABS: Hemoglobin A1c 9.7 % (4.3-6.0)
--- NOTE | 2018-02-10 17:11 | ECHRPT ---
Indication: HYPERTENSIVE HEART DISEASE CONCLUSIONS Normal left ventricular size. The left ventricular systolic function is low normal or mildly impaired with an estimated ejection f raction in the range of 45-55% with dyssynchronous contraction (?IVCD by EKG to explain it). Trace mitral valve regurgitation. There is mild tricuspid valve regurgitation. BP: / HR: Rhythm: MEASUREMENTS (Male / Female) Normal Values Technical Quality:Very technically difficult study 2D ECHO LV Diastolic Diameter PLAX 4.8 cm 4.2 - 5.9 / 3.9 - 5.3 cm LV Systolic Diameter PLAX 3.9 cm IVS Diastolic Thickness 1.3 cm 0.6 - 1.0 / 0.6 - 0.9 cm LVPW Diastolic Thickness 1.6 cm 0.6 - 1.0 / 0.6 - 0.9 cm LV Relative Wall Thickness 0.6 RV Internal Dim ED PLAX 2.9 cm LVOT Diameter 2.3 cm Aortic Root Diameter 3.1 cm LA Systolic Diameter LX 4.8 cm 3.0 - 4.0 / 2.7 - 3.8 cm LV Ejection Fraction MOD 4C 23.9 % LV Ejection Fraction 4C AL 25.8 % M-MODE Aortic Root Diameter MM 4.4 cm LA Systolic Diameter MM 4.2 cm LA Ao Ratio MM 1.0 AV Cusp Separation MM 2.5 cm DOPPLER AV Peak Velocity 132.0 cm/s AV Peak Gradient 7.0 mmHg LVOT Peak Velocity 91.8 cm/s LVOT Peak Gradient 3.4 mmHg AV Area Cont Eq pk 2.9 cm Mitral E Point Velocity 74.5 cm/s Mitral A Point Velocity 69.1 cm/s Mitral E to A Ratio 1.1 LV E' Lateral Velocity 6.9 cm/s Mitral E to LV E' Lateral Ratio 10.8 LV E' Septal Velocity 7.8 cm/s Mitral E to LV E' Septal Ratio 9.6 TR Peak Velocity 129.0 cm/s TR Peak Gradient 6.7 mmHg Right Atrial Pressure 10.0 mmHg Pulmonary Artery Systolic Pressu 16.7 mmHg Right Ventricular Systolic Press 16.7 mmHg PV Peak Velocity 103.0 cm/s PV Peak Gradient 4.2 mmHg FINDINGS LEFT VENTRICLE Normal left ventricular size. The left ventricular systolic function is low normal or mildly impaired with an estimated ejection f raction in the range of 45-55% with dyssynchronous contraction (?IVCD by EKG to explain it). RIGHT VENTRICLE Normal right ventricular size and systolic function. LEFT ATRIUM The left atrial size is normal. RIGHT ATRIUM The right atrial size is normal. ATRIAL SEPTUM Normal atrial septal thickness without atrial level shunting by limited color doppler interrogation. AORTA The aortic root and proximal ascending aorta are normal in size on limited imaging. MITRAL VALVE Trace mitral valve regurgitation. AORTIC VALVE Trileaflet aortic valve. No aortic valve stenosis or regurgitation. TRICUSPID VALVE There is mild tricuspid valve regurgitation. PULMONARY VALVE No pulmonary valve regurgitation or stenosis. VESSELS The inferior vena cava is normal in size. PERICARDIUM No pericardial effusion. Yaakov Mendoza MD (Electronically Signed) Final Date:10 February 2018 17:10
[2018-02-10] MEDS ORDERED: cloNIDine Susp (NICU) 20 MCG/ML 30 ML Bottle PO SCH (21:00)
[2018-02-10] MEDS: Famotidine 20 MG Tablet PO SCH (21:27)
[2018-02-11 01:45] LABS: Troponin I 0.28 ng/mL (0.02-0.05)
[2018-02-11 01:58] LABS: CKMB Percent 0.1 % (0.0-4.0); Creatine Kinase MB 13.9 ng/mL (0.5-3.6)
[2018-02-11] MEDS: Sod Chloride 0.9% Inj 1,000 ML IV.CONT SCH ×3 (05:13→20:11)
[2018-02-11 07:03] LABS: Alanine Aminotransferase 48 U/L (12-78); Albumin 2.8 g/dL (3.4-5.0); Alkaline Phosphatase 35 U/L (45-117); Anion Gap 10 meq/L (5-15); Aspartate Aminotransferase 216 U/L (15-37); Blood Urea Nitrogen 27 mg/dL (7-18); Calcium 8.4 mg/dL (8.5-10.1); Carbon Dioxide 23.1 meq/L (21.0-32.0); Chloride 107 meq/L (98-107); Cholesterol 59 mg/dL (120-200); Glomerular Filtration Rate 33 mL/min (>89); Glucose,Random 129 mg/dL (74-106); HDL Cholesterol 24.5 mg/dL (40.0-60.0); LDL Cholesterol,Calculated 13 mg/dL (0-99); Magnesium 1.5 mg/dL (1.5-2.5); Phosphorus 1.9 mg/dL (2.5-4.9); Potassium 3.7 meq/L (3.5-5.1); Sodium 140 meq/L (136-145); Total Protein 6.2 g/dL (6.4-8.2); Triglycerides 108 mg/dL (42-150)
[2018-02-11 07:08] LABS: Baso # (Auto) 0.1 th/mm3 (0.0-0.2); Baso % (Auto) 0.6 % (0.0-2.0); Eos # (Auto) 0.2 th/mm3 (0.0-0.4); Eos % (Auto) 1.9 % (0.0-4.0); Hematocrit 36.4 % (39.0-51.0); Lymph # (Auto) 2.2 th/mm3 (1.0-4.8); Lymph % (Auto) 20.6 % (9.0-44.0); Mean Corpuscular HGB Conc 35.7 % (32.0-36.0); Mean Corpuscular Hemoglobin 31.1 pg (27.0-34.0); Mean Corpuscular Volume 87.3 fL (80.0-100.0); Mean Platelet Volume 9.8 fL (7.0-11.0); Mono # (Auto) 0.7 th/mm3 (0.0-0.9); Mono % (Auto) 6.3 % (0.0-8.0); Neut # (Auto) 7.7 th/mm3 (1.8-7.7); Neut % (Auto) 70.6 % (16.0-70.0); Platelet Count 204 th/mm3 (150-450); Red Blood Count 4.17 mil/mm3 (4.50-5.90); Red Cell Distribution Width 13.6 % (11.6-17.2); White Blood Count 10.9 th/mm3 (4.0-11.0)
[2018-02-11] MEDS: Fenofibrate 48 MG Tablet PO SCH (09:08)
[2018-02-11] MEDS: Famotidine 20 MG Tablet PO SCH ×2 (09:08→21:58)
[2018-02-11] MEDS: Enoxaparin Inj 30 MG/0.3 ML Syringe SQ SCH (09:09)
[2018-02-11] MEDS: Sodium Chloride 0.9% 2 ML Flush BID IV.FLUSH SCH ×2 (09:10→21:58)
[2018-02-11] MEDS: Insulin NovoLOG Aspart Correctional Sugar Inj SQ SCH ×4 (09:18→21:59)
--- NOTE | 2018-02-11 09:45 | P.PN ---
Subjective Interval history: Follow-up encephalopathy February 11, 2018-patient seen and examined, alert and oriented to self and to the presence of his daughter and her . Patient able to have a conversation with examiner in Wallisian. Physical Exam Vital signs: Vital Signs 02/10/18 09:34 02/10/18 11:35 02/10/18 13:40 Temperature 98.7 F 97.9 F 101.2 F H Pulse Rate 67 74 83 Respiratory Rate 18 19 18 Blood Pressure 153/88 H 191/84 H 167/82 H Pulse Oximetry 98 99 98 02/10/18 16:00 02/10/18 20:00 02/11/18 00:00 Temperature 99.9 F H 99 F 98.8 F Pulse Rate 80 64 77 Respiratory Rate 20 27 H 24 Blood Pressure 166/80 H 156/70 H 155/72 H Pulse Oximetry 97 95 95 02/11/18 04:00 02/11/18 08:00 Temperature 98.8 F 99.3 F Pulse Rate 65 65 Respiratory Rate 20 18 Blood Pressure 158/70 H 158/75 H Pulse Oximetry 94 L 93 L Intake & Output 02/10/18 02/11/18 02/11/18 18:59 06:59 18:59 Intake Total 1000 / 1000 470 / 470 Output Total 900 / 900 1150 / 1150 Balance 100 / 100 -680 / -680 Weight 103.6 kg 103.4 kg Intake: IV 1000 / 1000 350 / 350 NS Inj 1,000 ML @ 84 mls/hr IV. 750 / 750 250 / 250 CONT .[id number] [facility] Rx#:[id number] Azithromycin Inj 500 MG In NS 250 / 250 Inj 250 ML @ 250 mls/hr IV.SIG Q24H [facility] Rx#:[id number] Rocephin Inj 1,000 MG In NS Inj 100 / 100 100 ML @ 200 mls/hr IV.SIG Q24H [facility] Rx#:[id number] Oral 120 / 120 Output: Urine 1150 / 1150 Urine Amount (Catheter) 900 / 900 Indwelling Urethral Catheter 900 / 900 Other: Date of Last Bowel Movement 02/09/18 02/10/18 Weight On Admission 103.6 kg Narrative: GENERAL: NAD SKIN: Warm and dry. HEAD: Atraumatic. Normocephalic. EYES: Pupils equal and round. No scleral icterus. No injection or drainage. ENT: No nasal bleeding or discharge. Mucous membranes pink and moist. NECK: Trachea midline. No JVD. CARDIOVASCULAR: Regular rate and rhythm. RESPIRATORY: No accessory muscle use. Clear to auscultation. Breath sounds equal bilaterally. GASTROINTESTINAL: Abdomen soft, non-tender, nondistended. Hepatic and splenic margins not palpable. MUSCULOSKELETAL: Extremities without clubbing, cyanosis, or edema. No obvious deformities. NEUROLOGICAL: Awake and alert. No obvious cranial nerve deficits. Motor grossly within normal limits. Five out of 5 muscle strength in the arms and legs. PSYCHIATRIC: Appropriate mood and affect; insight and judgment normal. - Urinary Catheter Management Indwelling Urethral Catheter Cath placed during this visit: yes Reason for continuing: Other continuation reason Insertion date: 02/10/18 Insertion time: 02:45 Results - Labs CBC & Chem 7: 02/11/18 03:40 02/11/18 03:40 Laboratory Results - last 24 hr 02/10/18 02/10/18 02/10/18 09:00 09:00 09:00 WBC RBC Hgb Hct MCV MCH MCHC RDW Plt Count MPV Neut % (Auto) Lymph % (Auto) [place] % (Auto) Eos % (Auto) Baso % (Auto) Neut # (Auto) Lymph # (Auto) [place] # (Auto) Eos # (Auto) Baso # (Auto) WBC Differential Differential Comment Sodium Potassium Chloride Carbon Dioxide Anion Gap BUN Creatinine Estimated GFR POC Glucose Random Glucose Hemoglobin A1c Calcium Phosphorus Magnesium Total Bilirubin AST ALT Alkaline Phosphatase Total Creatine Kinase 7434 H CK-MB (CK-2) 25.1 H CK-MB (CK-2) % 0.3 Troponin I Total Protein Albumin Triglycerides Cholesterol LDL Cholesterol, Calc HDL Cholesterol Cholesterol/HDL Ratio TSH Free T4 Prolactin 27.2 H Cortisol 15.5 02/10/18 02/10/18 02/10/18 11:33 12:00 12:00 WBC RBC Hgb Hct MCV MCH MCHC RDW Plt Count MPV Neut % (Auto) Lymph % (Auto) [place] % (Auto) Eos % (Auto) Baso % (Auto) Neut # (Auto) Lymph # (Auto) [place] # (Auto) Eos # (Auto) Baso # (Auto) WBC Differential Differential Comment Sodium Potassium Chloride Carbon Dioxide Anion Gap BUN Creatinine Estimated GFR POC Glucose 177 H Random Glucose Hemoglobin A1c 9.7 H Calcium Phosphorus Magnesium Total Bilirubin AST ALT Alkaline Phosphatase Total Creatine Kinase CK-MB (CK-2) CK-MB (CK-2) % Troponin I Total Protein Albumin Triglycerides Cholesterol LDL Cholesterol, Calc HDL Cholesterol Cholesterol/HDL Ratio TSH Free T4 Cancelled Prolactin Cortisol 02/10/18 02/10/18 02/10/18 12:00 12:00 16:42 WBC RBC Hgb Hct MCV MCH MCHC RDW Plt Count MPV Neut % (Auto) Lymph % (Auto) [place] % (Auto) Eos % (Auto) Baso % (Auto) Neut # (Auto) Lymph # (Auto) [place] # (Auto) Eos # (Auto) Baso # (Auto) WBC Differential Differential Comment Sodium Potassium Chloride Carbon Dioxide Anion Gap BUN Creatinine Estimated GFR POC Glucose 132 H Random Glucose Hemoglobin A1c Calcium Phosphorus Magnesium Total Bilirubin AST ALT Alkaline Phosphatase Total Creatine Kinase 7469 H Cancelled CK-MB (CK-2) 24.0 H CK-MB (CK-2) % 0.3 Troponin I 0.28 H Cancelled Total Protein Albumin Triglycerides Cholesterol LDL Cholesterol, Calc HDL Cholesterol Cholesterol/HDL Ratio TSH 1.020 Free T4 0.76 Prolactin Cortisol 02/10/18 02/11/18 02/11/18 19:35 00:09 03:40 WBC RBC Hgb Hct MCV MCH MCHC RDW Plt Count MPV Neut % (Auto) Lymph % (Auto) [place] % (Auto) Eos % (Auto) Baso % (Auto) Neut # (Auto) Lymph # (Auto) [place] # (Auto) Eos # (Auto) Baso # (Auto) WBC Differential Differential Comment Sodium 140 Potassium 3.7 Chloride 107 D Carbon Dioxide 23.1 Anion Gap 10 BUN 27 H Creatinine 1.91 H Estimated GFR 33 L POC Glucose 185 H Random Glucose 129 H D Hemoglobin A1c Calcium 8.4 L Phosphorus 1.9 L Magnesium 1.5 Total Bilirubin 1.1 H AST 216 H ALT 48 Alkaline Phosphatase 35 L Total Creatine Kinase 14323 H CK-MB (CK-2) 13.9 H CK-MB (CK-2) % 0.1 Troponin I 0.28 H Total Protein 6.2 L D Albumin 2.8 L D Triglycerides 108 Cholesterol 59 L LDL Cholesterol, Calc 13 HDL Cholesterol 24.5 L Cholesterol/HDL Ratio 2.40 TSH Free T4 Prolactin Cortisol 02/11/18 02/11/18 03:40 07:57 WBC 10.9 RBC 4.17 L Hgb 13.0 Hct 36.4 L MCV 87.3 MCH 31.1 MCHC 35.7 RDW 13.6 Plt Count 204 MPV 9.8 Neut % (Auto) 70.6 H Lymph % (Auto) 20.6 [place] % (Auto) 6.3 Eos % (Auto) 1.9 Baso % (Auto) 0.6 Neut # (Auto) 7.7 Lymph # (Auto) 2.2 [place] # (Auto) 0.7 Eos # (Auto) 0.2 Baso # (Auto) 0.1 WBC Differential . Differential Comment Auto diff final Sodium Potassium Chloride Carbon Dioxide Anion Gap BUN Creatinine Estimated GFR POC Glucose 152 H Random Glucose Hemoglobin A1c Calcium Phosphorus Magnesium Total Bilirubin AST ALT Alkaline Phosphatase Total Creatine Kinase CK-MB (CK-2) CK-MB (CK-2) % Troponin I Total Protein Albumin Triglycerides Cholesterol LDL Cholesterol, Calc HDL Cholesterol Cholesterol/HDL Ratio TSH Free T4 Prolactin Cortisol - Imaging Impressions Head MRI 02/10/18 00:00 CONCLUSION: 1. 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 This study is limited due to the lack of intravenous contrast. 2. Mild atrophy and chronic small vessel ischemic change. 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 Continue with IV fluid hydration Diabetes mellitus continue on Accu-Cheks before meals and at bedtime with sliding scale coverage Rhabdomyolysis Continue IV fluid hydration and monitor CK Borderline troponins of 0.11 Lactic acid Resolved with IV fluid hydration Urinalysis shows no active urinary tract infection Pituitary microadenoma Recommend outpatient follow-up with neurosurgery, however patient not a surgical candidate The findings were discussed with patient's daughter and son-in-law Possible bronchitis continue on Rocephin and Zithromax Hypertension Resume Triamterene/hydrochlorothiazide Continue physical therapy and occupational therapy
[2018-02-11] MEDS: Triamterene/HCTZ 37.5 MG/25 MG Tablet PO SCH (13:33)
[2018-02-11] MEDS: Azithromycin Inj 500 MG in Sodium Chlor 0.9% Inj 250 ML IV.SIG SCH (13:34)
[2018-02-12] MEDS: Sod Chloride 0.9% Inj 1,000 ML IV.CONT SCH ×2 (05:55→18:05)
[2018-02-12 06:14] LABS: Albumin 2.6 g/dL (3.4-5.0); Anion Gap 10 meq/L (5-15); Aspartate Aminotransferase 164 U/L (15-37); Blood Urea Nitrogen 28 mg/dL (7-18); Calcium 8.1 mg/dL (8.5-10.1); Carbon Dioxide 24.5 meq/L (21.0-32.0); Chloride 109 meq/L (98-107); Glomerular Filtration Rate 40 mL/min (>89); Glucose,Random 112 mg/dL (74-106); Potassium 3.6 meq/L (3.5-5.1); Sodium 143 meq/L (136-145)
[2018-02-12 06:16] LABS: Alanine Aminotransferase 46 U/L (12-78)
[2018-02-12 06:31] LABS: Alkaline Phosphatase 37 U/L (45-117); Creatine Kinase 6273 U/L (39-308); Total Protein 6.1 g/dL (6.4-8.2)
[2018-02-12 06:46] LABS: CKMB Percent 0.1 % (0.0-4.0); Creatine Kinase MB 4.2 ng/mL (0.5-3.6)
[2018-02-12 07:08] LABS: Baso # (Auto) 0.1 th/mm3 (0.0-0.2); Eos # (Auto) 0.4 th/mm3 (0.0-0.4); Hematocrit 36.4 % (39.0-51.0); Hemoglobin 12.6 gm/dL (13.0-17.0); Lymph # (Auto) 2.3 th/mm3 (1.0-4.8); Lymph % (Auto) 31.3 % (9.0-44.0); Mean Corpuscular HGB Conc 34.8 % (32.0-36.0); Mean Corpuscular Volume 89.1 fL (80.0-100.0); Mean Platelet Volume 9.7 fL (7.0-11.0); Mono # (Auto) 0.5 th/mm3 (0.0-0.9); Mono % (Auto) 7.2 % (0.0-8.0); Neut # (Auto) 4.2 th/mm3 (1.8-7.7); Neut % (Auto) 55.5 % (16.0-70.0); Platelet Count 197 th/mm3 (150-450); Red Blood Count 4.08 mil/mm3 (4.50-5.90); Red Cell Distribution Width 13.9 % (11.6-17.2); White Blood Count 7.5 th/mm3 (4.0-11.0)
[2018-02-12] MEDS: Insulin NovoLOG Aspart Correctional Sugar Inj SQ SCH ×4 (08:08→21:01)
[2018-02-12] MEDS: Triamterene/HCTZ 37.5 MG/25 MG Tablet PO SCH (09:29)
[2018-02-12] MEDS: Famotidine 20 MG Tablet PO SCH ×2 (09:33→21:00)
[2018-02-12] MEDS: Sodium Chloride 0.9% 2 ML Flush BID IV.FLUSH SCH ×2 (09:33→21:01)
[2018-02-12] MEDS: Enoxaparin Inj 30 MG/0.3 ML Syringe SQ SCH (09:33)
[2018-02-12] MEDS: Fenofibrate 48 MG Tablet PO SCH (09:33)
--- NOTE | 2018-02-12 09:34 | P.PN ---
Subjective Interval history: Follow-up encephalopathy/bronchitis February 11, 2018-patient seen and examined, alert and oriented to self and to the presence of his daughter and her . Patient able to have a conversation with examiner in [place]. February 12, 2018-patient seen and examined, no acute event overnight, + shortness of breath and wheezings on exam. Hematuria resolved. Physical Exam Vital signs: Vital Signs 02/11/18 12:00 02/11/18 16:00 02/11/18 20:00 Temperature 98.2 F 99.1 F 99.6 F Pulse Rate 64 65 81 Respiratory Rate 19 19 20 Blood Pressure 146/88 H 164/72 H 155/74 H Pulse Oximetry 93 L 93 L 95 02/12/18 00:00 02/12/18 04:00 02/12/18 08:00 Temperature 97.5 F L 98.3 F 97.6 F Pulse Rate 81 64 50 L Respiratory Rate 20 20 18 Blood Pressure 168/79 H 167/55 H 131/61 Pulse Oximetry 95 95 94 L Intake & Output 02/11/18 02/12/18 02/12/18 18:59 06:59 18:59 Intake Total 2784 / 2784 1100 / 1100 Output Total 1050 / 1050 950 / 950 Balance 1734 / 1734 150 / 150 Weight 102.6 kg Intake: IV 1250 / 1250 1100 / 1100 NS Inj 1,000 ML @ 84 mls/hr IV. 1000 / 1000 1000 / 1000 CONT .[id number] [facility] Rx#:[id number] Azithromycin Inj 500 MG In NS 250 / 250 Inj 250 ML @ 250 mls/hr IV.SIG Q24H [facility] Rx#:[id number] Rocephin Inj 1,000 MG In NS Inj 100 / 100 100 ML @ 200 mls/hr IV.SIG Q24H [facility] Rx#:[id number] Oral 360 / 360 Other 1174 / 1174 Output: Urine 650 / 650 Urine Amount (Catheter) 400 / 400 950 / 950 Indwelling Urethral Catheter 400 / 400 950 / 950 Other: Date of Last Bowel Movement 02/10/18 # Bowel Movements 0 # Incontinent Bowel Movements 1 Narrative: GENERAL: NAD SKIN: Warm and dry. HEAD: Atraumatic. Normocephalic. EYES: Pupils equal and round. No scleral icterus. No injection or drainage. ENT: No nasal bleeding or discharge. Mucous membranes pink and moist. NECK: Trachea midline. No JVD. CARDIOVASCULAR: Regular rate and rhythm. RESPIRATORY: No accessory muscle use. Clear to auscultation. Breath sounds decrease bilaterally. +exp wheezings GASTROINTESTINAL: Abdomen soft, non-tender, nondistended. Hepatic and splenic margins not palpable. MUSCULOSKELETAL: Extremities without clubbing, cyanosis, or edema. No obvious deformities. NEUROLOGICAL: Awake and alert. No obvious cranial nerve deficits. Motor grossly within normal limits. Five out of 5 muscle strength in the arms and legs. PSYCHIATRIC: Appropriate mood and affect; insight and judgment normal. - Urinary Catheter Management Indwelling Urethral Catheter Cath placed during this visit: yes Reason for continuing: Other continuation reason Insertion date: 02/10/18 Insertion time: 02:45 Results - Labs CBC & Chem 7: 02/12/18 05:02 02/12/18 05:02 Laboratory Results - last 24 hr 02/11/18 02/11/18 02/11/18 11:41 16:17 20:22 WBC RBC Hgb Hct MCV MCH MCHC RDW Plt Count MPV Neut % (Auto) Lymph % (Auto) [place] % (Auto) Eos % (Auto) Baso % (Auto) Neut # (Auto) Lymph # (Auto) [place] # (Auto) Eos # (Auto) Baso # (Auto) WBC Differential Differential Comment Sodium Potassium Chloride Carbon Dioxide Anion Gap BUN Creatinine Estimated GFR POC Glucose 166 H 136 H 164 H Random Glucose Calcium Total Bilirubin AST ALT Alkaline Phosphatase Total Creatine Kinase CK-MB (CK-2) CK-MB (CK-2) % Total Protein Albumin 02/12/18 02/12/18 02/12/18 05:02 05:02 07:53 WBC 7.5 RBC 4.08 L Hgb 12.6 L Hct 36.4 L MCV 89.1 MCH 31.0 MCHC 34.8 RDW 13.9 Plt Count 197 MPV 9.7 Neut % (Auto) 55.5 Lymph % (Auto) 31.3 [place] % (Auto) 7.2 Eos % (Auto) 5.0 H Baso % (Auto) 1.0 Neut # (Auto) 4.2 Lymph # (Auto) 2.3 [place] # (Auto) 0.5 Eos # (Auto) 0.4 Baso # (Auto) 0.1 WBC Differential . Differential Comment Auto diff final Sodium 143 Potassium 3.6 Chloride 109 H Carbon Dioxide 24.5 Anion Gap 10 BUN 28 H Creatinine 1.63 H Estimated GFR 40 L POC Glucose 113 H Random Glucose 112 H Calcium 8.1 L Total Bilirubin 0.6 AST 164 H ALT 46 Alkaline Phosphatase 37 L Total Creatine Kinase 6273 H CK-MB (CK-2) 4.2 H CK-MB (CK-2) % 0.1 Total Protein 6.1 L Albumin 2.6 L Microbiology 02/10/18 02:50 Blood - Peripheral Aerobic Blood Culture - Preliminary No growth in 1 day 02/10/18 02:50 Blood - Peripheral Anaerobic Blood Culture - Preliminary No growth in 1 day 02/10/18 02:50 Blood - Peripheral Aerobic Blood Culture - Preliminary No growth in 1 day 02/10/18 02:50 Blood - Peripheral Anaerobic Blood Culture - Preliminary No growth in 1 day Assessment and Plan - Plan 87-year-old man with Metabolic encephalopathy-improving Likely secondary to bronchitis versus other-improving Continue with current IV fluid hydration, IV antibiotics Mild leukocytosis-Resolved Dehydration -resolved 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 Improving, continue with IV fluid hydration Diabetes mellitus continue on Accu-Cheks before meals and at bedtime with sliding scale coverage Rhabdomyolysis -improving CK trending down Continue IV fluid hydration and monitor CK Lactic acid Resolved with IV fluid hydration Urinalysis shows no active urinary tract infection Pituitary microadenoma Recommend outpatient follow-up with neurosurgery, however patient not a surgical candidate The findings were discussed with patient's daughter and son-in-law Possible bronchitis continue on Rocephin and Zithromax Start Prednisone 20mg daily DuoNeb as needed +schedule Hypertension Continue triamterene/hydrochlorothiazide Continue physical therapy and occupational therapy
[2018-02-12] MEDS: predniSONE 20 MG Tablet PO SCH (10:55)
[2018-02-12] MEDS: Azithromycin Inj 500 MG in Sodium Chlor 0.9% Inj 250 ML IV.SIG SCH (13:30)
[2018-02-13 05:47] LABS: Alanine Aminotransferase 47 U/L (12-78); Albumin 2.6 g/dL (3.4-5.0); Alkaline Phosphatase 48 U/L (45-117); Anion Gap 8 meq/L (5-15); Aspartate Aminotransferase 123 U/L (15-37); Blood Urea Nitrogen 30 mg/dL (7-18); Calcium 8.3 mg/dL (8.5-10.1); Carbon Dioxide 26.3 meq/L (21.0-32.0); Chloride 107 meq/L (98-107); Creatine Kinase 3418 U/L (39-308); Glomerular Filtration Rate 40 mL/min (>89); Glucose,Random 230 mg/dL (74-106); Sodium 141 meq/L (136-145); Total Protein 6.3 g/dL (6.4-8.2)
[2018-02-13 06:03] LABS: CKMB Percent 0.1 % (0.0-4.0); Creatine Kinase MB 3.2 ng/mL (0.5-3.6)
[2018-02-13] MEDS: Sod Chloride 0.9% Inj 1,000 ML IV.CONT SCH ×2 (06:26→11:22)
[2018-02-13] MEDS: predniSONE 20 MG Tablet PO SCH (08:33)
[2018-02-13] MEDS: Famotidine 20 MG Tablet PO SCH ×2 (08:33→21:39)
[2018-02-13] MEDS: Triamterene/HCTZ 37.5 MG/25 MG Tablet PO SCH (08:34)
[2018-02-13] MEDS: Fenofibrate 48 MG Tablet PO SCH (08:34)
[2018-02-13] MEDS: Enoxaparin Inj 30 MG/0.3 ML Syringe SQ SCH (08:35)
[2018-02-13] MEDS: Sodium Chloride 0.9% 2 ML Flush BID IV.FLUSH SCH ×2 (08:35→21:39)
[2018-02-13] MEDS: Insulin NovoLOG Aspart Correctional Sugar Inj SQ SCH ×4 (08:44→21:40)
[2018-02-13] MEDS: Azithromycin 250 MG Tablet PO SCH (08:46)
--- NOTE | 2018-02-13 10:40 | P.PN ---
Subjective Interval history: Follow-up encephalopathy/bronchitis February 11, 2018-patient seen and examined, alert and oriented to self and to the presence of his daughter and her . Patient able to have a conversation with examiner in [place]. February 12, 2018-patient seen and examined, no acute event overnight, + shortness of breath and wheezings on exam. Hematuria resolved. February 13, 2018-patient seen and examined,+SOB and still wheezing on exam. No chest pain. Physical Exam Vital signs: Vital Signs 02/12/18 10:58 02/12/18 12:00 02/12/18 14:00 Temperature 98.0 F Pulse Rate 53 L 79 Respiratory Rate 18 16 Blood Pressure 140/72 Pulse Oximetry 95 94 L 02/12/18 15:00 02/12/18 16:00 02/12/18 19:00 Temperature 98.1 F Pulse Rate 80 71 Respiratory Rate 18 17 Blood Pressure 159/76 H Pulse Oximetry 93 L 94 L 02/12/18 20:00 02/13/18 00:00 02/13/18 04:00 Temperature 98.1 F 97.2 F L 97.6 F Pulse Rate 69 57 L 42 L Respiratory Rate 20 22 22 Blood Pressure 174/84 H 129/75 145/67 H Pulse Oximetry 94 L 92 L 96 02/13/18 07:47 02/13/18 08:00 Temperature 97.8 F Pulse Rate 51 L 51 L Respiratory Rate 16 18 Blood Pressure 147/67 H Pulse Oximetry 96 95 Intake & Output 02/12/18 02/13/18 02/13/18 18:59 06:59 18:59 Intake Total 1850 / 1850 1120 / 1120 100 / 100 Output Total 1650 / 1650 220 / 220 Balance 200 / 200 900 / 900 100 / 100 Intake: IV 1250 / 1250 1000 / 1000 100 / 100 NS Inj 1,000 ML @ 84 mls/hr IV. 1000 / 1000 1000 / 1000 CONT .[id number] [facility] Rx#:[id number] Azithromycin Inj 500 MG In NS 250 / 250 Inj 250 ML @ 250 mls/hr IV.SIG Q24H [facility] Rx#:[id number] Rocephin Inj 1,000 MG In NS Inj 100 / 100 100 ML @ 200 mls/hr IV.SIG Q24H [facility] Rx#:[id number] Oral 600 / 600 120 / 120 Output: Urine 1650 / 1650 220 / 220 Other: Date of Last Bowel Movement 02/12/18 02/12/18 02/12/18 # Bowel Movements 1 Narrative: GENERAL: NAD SKIN: Warm and dry. HEAD: Atraumatic. Normocephalic. EYES: Pupils equal and round. No scleral icterus. No injection or drainage. ENT: No nasal bleeding or discharge. Mucous membranes pink and moist. NECK: Trachea midline. No JVD. CARDIOVASCULAR: Regular rate and rhythm. RESPIRATORY: No accessory muscle use. Clear to auscultation. Breath sounds decrease bilaterally. +exp wheezings GASTROINTESTINAL: Abdomen soft, non-tender, nondistended. Hepatic and splenic margins not palpable. MUSCULOSKELETAL: Extremities without clubbing, cyanosis, or edema. No obvious deformities. NEUROLOGICAL: Awake and alert. No obvious cranial nerve deficits. Motor grossly within normal limits. Five out of 5 muscle strength in the arms and legs. PSYCHIATRIC: Appropriate mood and affect; insight and judgment normal. - Urinary Catheter Management Indwelling Urethral Catheter Cath placed during this visit: yes Reason for continuing: Other continuation reason Insertion date: 02/10/18 Insertion time: 02:45 Results - Labs CBC & Chem 7: 02/12/18 05:02 02/13/18 03:56 Laboratory Results - last 24 hr 02/12/18 02/12/18 02/12/18 12:45 17:24 20:59 Sodium Potassium Chloride Carbon Dioxide Anion Gap BUN Creatinine Estimated GFR POC Glucose 188 H 258 H 278 H Random Glucose Calcium Total Bilirubin AST ALT Alkaline Phosphatase Total Creatine Kinase CK-MB (CK-2) CK-MB (CK-2) % Total Protein Albumin 02/13/18 02/13/18 03:56 07:39 Sodium 141 Potassium 4.0 Chloride 107 Carbon Dioxide 26.3 Anion Gap 8 BUN 30 H Creatinine 1.63 H Estimated GFR 40 L POC Glucose 181 H Random Glucose 230 H D Calcium 8.3 L Total Bilirubin 0.4 AST 123 H ALT 47 Alkaline Phosphatase 48 Total Creatine Kinase 3418 H CK-MB (CK-2) 3.2 CK-MB (CK-2) % 0.1 Total Protein 6.3 L Albumin 2.6 L Microbiology 02/10/18 02:50 Blood - Peripheral Aerobic Blood Culture - Preliminary No growth in 2 days 02/10/18 02:50 Blood - Peripheral Anaerobic Blood Culture - Preliminary No growth in 2 days 02/10/18 02:50 Blood - Peripheral Aerobic Blood Culture - Preliminary No growth in 2 days 02/10/18 02:50 Blood - Peripheral Anaerobic Blood Culture - Preliminary No growth in 2 days Assessment and Plan - Plan 87-year-old man with Metabolic encephalopathy-improving Likely secondary to bronchitis versus other-improving Continue with current IV fluid hydration but decrease rate, IV antibiotics Mild leukocytosis-Resolved Dehydration -resolved 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 Improving, continue with IV fluid hydration however at a lower rate Diabetes mellitus continue on Accu-Cheks before meals and at bedtime with sliding scale coverage Rhabdomyolysis -improving CK trending down Continue IV fluid hydration and monitor CK Lactic acid Resolved with IV fluid hydration Urinalysis shows no active urinary tract infection Pituitary microadenoma Recommend outpatient follow-up with neurosurgery, however patient not a surgical candidate The findings were discussed with patient's daughter and son-in-law Possible bronchitis continue on Rocephin and s/p Zithromax Continue prednisone 20mg daily DuoNeb as needed +schedule Hypertension Continue triamterene/hydrochlorothiazide Continue physical therapy and occupational therapy Check BNP this a.m.
[2018-02-14 06:59] LABS: Baso # (Auto) 0.1 th/mm3 (0.0-0.2); Baso % (Auto) 0.8 % (0.0-2.0); Eos # (Auto) 0.1 th/mm3 (0.0-0.4); Eos % (Auto) 0.8 % (0.0-4.0); Hematocrit 35.4 % (39.0-51.0); Hemoglobin 12.4 gm/dL (13.0-17.0); Lymph # (Auto) 2.3 th/mm3 (1.0-4.8); Lymph % (Auto) 24.5 % (9.0-44.0); Mean Corpuscular HGB Conc 35.1 % (32.0-36.0); Mean Corpuscular Hemoglobin 30.8 pg (27.0-34.0); Mean Corpuscular Volume 87.6 fL (80.0-100.0); Mean Platelet Volume 10.4 fL (7.0-11.0); Mono # (Auto) 0.4 th/mm3 (0.0-0.9); Mono % (Auto) 4.3 % (0.0-8.0); Neut # (Auto) 6.5 th/mm3 (1.8-7.7); Neut % (Auto) 69.6 % (16.0-70.0); Platelet Count 226 th/mm3 (150-450); Red Blood Count 4.04 mil/mm3 (4.50-5.90); Red Cell Distribution Width 13.7 % (11.6-17.2); White Blood Count 9.4 th/mm3 (4.0-11.0)
[2018-02-14 07:24] LABS: Albumin 2.8 g/dL (3.4-5.0); Anion Gap 10 meq/L (5-15); Aspartate Aminotransferase 90 U/L (15-37); Blood Urea Nitrogen 31 mg/dL (7-18); Calcium 8.6 mg/dL (8.5-10.1); Chloride 106 meq/L (98-107); Glomerular Filtration Rate 37 mL/min (>89); Glucose,Random 180 mg/dL (74-106); Potassium 3.8 meq/L (3.5-5.1); Sodium 143 meq/L (136-145)
[2018-02-14 07:36] LABS: Alanine Aminotransferase 44 U/L (12-78); Alkaline Phosphatase 46 U/L (45-117); Creatine Kinase 1980 U/L (39-308); Total Protein 6.3 g/dL (6.4-8.2)
[2018-02-14 07:52] LABS: CKMB Percent 0.2 % (0.0-4.0); Creatine Kinase MB 3.9 ng/mL (0.5-3.6)
[2018-02-14] MEDS: predniSONE 20 MG Tablet PO SCH (08:54)
[2018-02-14] MEDS: Fenofibrate 48 MG Tablet PO SCH (08:55)
[2018-02-14] MEDS: Famotidine 20 MG Tablet PO SCH ×2 (08:55→20:21)
[2018-02-14] MEDS: Enoxaparin Inj 30 MG/0.3 ML Syringe SQ SCH (08:56)
[2018-02-14] MEDS: Insulin NovoLOG Aspart Correctional Sugar Inj SQ SCH ×4 (08:56→20:21)
[2018-02-14] MEDS: Triamterene/HCTZ 37.5 MG/25 MG Tablet PO SCH (08:56)
[2018-02-14] MEDS: Sodium Chloride 0.9% 2 ML Flush BID IV.FLUSH SCH ×2 (09:00→20:21)
[2018-02-14] MEDS: Azithromycin 250 MG Tablet PO SCH (09:03)
[2018-02-14] MEDS: Sod Chloride 0.9% Inj 1,000 ML IV.CONT SCH (10:55)
--- NOTE | 2018-02-14 12:43 | P.PN ---
Subjective Interval history: Follow-up encephalopathy/bronchitis February 14, 2018-patient seen and examined, alert and oriented x3. Patient not able to ambulate. Physical Exam Vital signs: Vital Signs 02/13/18 13:59 02/13/18 16:00 02/13/18 19:58 Temperature 98.1 F Pulse Rate 57 L 71 57 L Respiratory Rate 16 20 18 Blood Pressure 160/80 H Pulse Oximetry 95 02/13/18 19:59 02/13/18 20:00 02/14/18 00:00 Temperature 98.1 F 96.7 F L Pulse Rate 63 58 L Respiratory Rate 20 16 Blood Pressure 160/70 H 145/67 H Pulse Oximetry 93 L 96 94 L 02/14/18 04:00 02/14/18 08:00 02/14/18 12:00 Temperature 97.8 F 98.0 F 98.1 F Pulse Rate 49 L 60 62 Respiratory Rate 20 20 20 Blood Pressure 182/92 H 184/94 H 180/88 H Pulse Oximetry 95 96 96 02/14/18 12:25 Temperature Pulse Rate 60 Respiratory Rate 20 Blood Pressure Pulse Oximetry Intake & Output 02/13/18 02/14/18 02/14/18 18:59 06:59 18:59 Intake Total 1280 / 1280 400 / 400 120 / 120 Output Total 750 / 750 1710 / 1710 Balance 530 / 530 400 / 400 -1590 / -1590 Weight 103 kg Intake: IV 800 / 800 400 / 400 NS Inj 1,000 ML @ 84 mls/hr IV. 700 / 700 CONT .[id number] [facility] Rx#:[id number] Rocephin Inj 1,000 MG In NS Inj 100 / 100 100 / 100 100 ML @ 200 mls/hr IV.SIG Q24H [facility] Rx#:[id number] Oral 480 / 480 120 / 120 Output: Urine 750 / 750 1710 / 1710 Other: Date of Last Bowel Movement 02/12/18 02/12/18 02/12/18 # Bowel Movements 1 Narrative: GENERAL: NAD SKIN: Warm and dry. HEAD: Atraumatic. Normocephalic. EYES: Pupils equal and round. No scleral icterus. No injection or drainage. ENT: No nasal bleeding or discharge. Mucous membranes pink and moist. NECK: Trachea midline. No JVD. CARDIOVASCULAR: Regular rate and rhythm. RESPIRATORY: No accessory muscle use. Clear to auscultation. Breath sounds decrease bilaterally. +exp wheezings GASTROINTESTINAL: Abdomen soft, non-tender, nondistended. Hepatic and splenic margins not palpable. MUSCULOSKELETAL: Extremities without clubbing, cyanosis, or edema. No obvious deformities. NEUROLOGICAL: Awake and alert. No obvious cranial nerve deficits. Motor grossly within normal limits. Five out of 5 muscle strength in the arms and legs. PSYCHIATRIC: Appropriate mood and affect; insight and judgment normal. - Urinary Catheter Management Indwelling Urethral Catheter Cath placed during this visit: yes Reason for continuing: Other continuation reason Insertion date: 02/10/18 Insertion time: 02:45 Results - Labs CBC & Chem 7: 02/14/18 05:40 02/14/18 05:40 Laboratory Results - last 24 hr 02/13/18 02/13/18 02/13/18 12:08 12:36 16:33 WBC RBC Hgb Hct MCV MCH MCHC RDW Plt Count MPV Neut % (Auto) Lymph % (Auto) [place] % (Auto) Eos % (Auto) Baso % (Auto) Neut # (Auto) Lymph # (Auto) [place] # (Auto) Eos # (Auto) Baso # (Auto) WBC Differential Differential Comment Sodium Potassium Chloride Carbon Dioxide Anion Gap BUN Creatinine Estimated GFR POC Glucose 305 H 334 H Random Glucose Calcium Total Bilirubin AST ALT Alkaline Phosphatase Total Creatine Kinase CK-MB (CK-2) CK-MB (CK-2) % B-Natriuretic Peptide 302 H Total Protein Albumin 02/13/18 02/14/18 02/14/18 20:48 05:40 05:40 WBC 9.4 RBC 4.04 L Hgb 12.4 L Hct 35.4 L MCV 87.6 MCH 30.8 MCHC 35.1 RDW 13.7 Plt Count 226 MPV 10.4 Neut % (Auto) 69.6 Lymph % (Auto) 24.5 [place] % (Auto) 4.3 Eos % (Auto) 0.8 Baso % (Auto) 0.8 Neut # (Auto) 6.5 Lymph # (Auto) 2.3 [place] # (Auto) 0.4 Eos # (Auto) 0.1 Baso # (Auto) 0.1 WBC Differential . Differential Comment Auto diff final Sodium 143 Potassium 3.8 Chloride 106 Carbon Dioxide 27.0 Anion Gap 10 BUN 31 H Creatinine 1.76 H Estimated GFR 37 L POC Glucose 386 H Random Glucose 180 H Calcium 8.6 Total Bilirubin 0.3 AST 90 H ALT 44 Alkaline Phosphatase 46 Total Creatine Kinase 1980 H CK-MB (CK-2) 3.9 H CK-MB (CK-2) % 0.2 B-Natriuretic Peptide Total Protein 6.3 L Albumin 2.8 L 02/14/18 02/14/18 07:54 12:31 WBC RBC Hgb Hct MCV MCH MCHC RDW Plt Count MPV Neut % (Auto) Lymph % (Auto) [place] % (Auto) Eos % (Auto) Baso % (Auto) Neut # (Auto) Lymph # (Auto) [place] # (Auto) Eos # (Auto) Baso # (Auto) WBC Differential Differential Comment Sodium Potassium Chloride Carbon Dioxide Anion Gap BUN Creatinine Estimated GFR POC Glucose 166 H 236 H Random Glucose Calcium Total Bilirubin AST ALT Alkaline Phosphatase Total Creatine Kinase CK-MB (CK-2) CK-MB (CK-2) % B-Natriuretic Peptide Total Protein Albumin Microbiology 02/10/18 02:50 Blood - Peripheral Aerobic Blood Culture - Preliminary No growth in 4 days 02/10/18 02:50 Blood - Peripheral Anaerobic Blood Culture - Preliminary No growth in 4 days 02/10/18 02:50 Blood - Peripheral Aerobic Blood Culture - Preliminary No growth in 4 days 02/10/18 02:50 Blood - Peripheral Anaerobic Blood Culture - Preliminary No growth in 4 days - Procedures None Assessment and Plan - Plan 87-year-old man with Metabolic encephalopathy-improved Likely secondary to bronchitis versus other-improving Continue with current IV fluid hydration but decrease rate, IV antibiotics Mild leukocytosis-Resolved Dehydration -resolved 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 Improving, continue with IV fluid hydration Diabetes mellitus continue on Accu-Cheks before meals and at bedtime with sliding scale coverage Rhabdomyolysis -improving CK trending down Continue IV fluid hydration and monitor CK Lactic acid Resolved with IV fluid hydration Urinalysis shows no active urinary tract infection Pituitary microadenoma Recommend outpatient follow-up with neurosurgery, however patient not a surgical candidate The findings were discussed with patient's daughter and son-in-law Possible bronchitis continue on Rocephin and s/p Zithromax Continue prednisone 20mg daily DuoNeb as needed +schedule Hypertension Continue triamterene/hydrochlorothiazide Continue physical therapy and occupational therapy
[2018-02-15] MEDS: Triamterene/HCTZ 37.5 MG/25 MG Tablet PO SCH (09:06)
[2018-02-15] MEDS: Azithromycin 250 MG Tablet PO SCH (09:07)
[2018-02-15] MEDS: Famotidine 20 MG Tablet PO SCH ×2 (09:07→20:07)
[2018-02-15] MEDS: predniSONE 20 MG Tablet PO SCH (09:07)
[2018-02-15] MEDS: Fenofibrate 48 MG Tablet PO SCH (09:07)
[2018-02-15] MEDS: Sodium Chloride 0.9% 2 ML Flush BID IV.FLUSH SCH ×2 (09:08→20:08)
[2018-02-15] MEDS: Enoxaparin Inj 30 MG/0.3 ML Syringe SQ SCH (09:08)
[2018-02-15] MEDS: Insulin NovoLOG Aspart Correctional Sugar Inj SQ SCH ×4 (09:14→20:08)
--- NOTE | 2018-02-15 10:21 | P.PN ---
Subjective Interval history: Follow-up encephalopathy/bronchitis February 14, 2018-patient seen and examined, alert and oriented x3. Patient not able to ambulate. February 15, 2018-patient seen and examined, eating breakfast. Family by the bedside and daughter state her father is back to his baseline. BP labile otherwise no other complaint. Hematuria resolved. Case discussed with family regarding possible discharge to [facility] Physical Exam Vital signs: Vital Signs 02/14/18 12:00 02/14/18 12:25 02/14/18 16:00 Temperature 98.1 F 98.1 F Pulse Rate 70 60 65 Respiratory Rate 20 20 18 Blood Pressure 180/88 H 180/88 H Pulse Oximetry 96 96 02/14/18 19:12 02/14/18 20:00 02/15/18 00:00 Temperature 97.8 F 97.7 F Pulse Rate 65 82 57 L Respiratory Rate 18 20 20 Blood Pressure 162/78 H 152/78 H Pulse Oximetry 96 96 97 02/15/18 04:00 02/15/18 08:00 Temperature 98.0 F 97.6 F Pulse Rate 60 48 L Respiratory Rate 20 20 Blood Pressure 180/78 H 163/77 H Pulse Oximetry 96 98 Intake & Output 02/14/18 02/15/18 02/15/18 18:59 06:59 18:59 Intake Total 440 / 440 100 / 100 Output Total 3310 / 3310 1150 / 1150 Balance -2870 / -2870 -1050 / -1050 Weight 103 kg 102.5 kg Intake: IV 100 / 100 Rocephin Inj 1,000 MG In NS Inj 100 / 100 100 ML @ 200 mls/hr IV.SIG Q24H [facility] Rx#:[id number] Oral 440 / 440 Output: Urine 3310 / 3310 Urine Amount (Catheter) 1150 / 1150 Indwelling Urethral Catheter 1150 / 1150 Other: Date of Last Bowel Movement 02/12/18 02/12/18 # Bowel Movements 1 Narrative: GENERAL: NAD SKIN: Warm and dry. HEAD: Atraumatic. Normocephalic. EYES: Pupils equal and round. No scleral icterus. No injection or drainage. ENT: No nasal bleeding or discharge. Mucous membranes pink and moist. NECK: Trachea midline. No JVD. CARDIOVASCULAR: Regular rate and rhythm. RESPIRATORY: No accessory muscle use. Clear to auscultation. Breath sounds decrease bilaterally. +exp wheezings GASTROINTESTINAL: Abdomen soft, non-tender, nondistended. Hepatic and splenic margins not palpable. MUSCULOSKELETAL: Extremities without clubbing, cyanosis, or edema. No obvious deformities. NEUROLOGICAL: Awake and alert. No obvious cranial nerve deficits. Motor grossly within normal limits. Five out of 5 muscle strength in the arms and legs. PSYCHIATRIC: Appropriate mood and affect; insight and judgment normal. - Urinary Catheter Management Indwelling Urethral Catheter Cath placed during this visit: yes Reason for continuing: Other continuation reason Insertion date: 02/10/18 Insertion time: 02:45 Results - Labs CBC & Chem 7: 02/14/18 05:40 02/14/18 05:40 Laboratory Results - last 24 hr 02/14/18 02/14/18 02/14/18 12:31 17:09 19:44 POC Glucose 236 H 209 H 256 H 02/15/18 07:12 POC Glucose 144 H Microbiology 02/10/18 02:50 Blood - Peripheral Aerobic Blood Culture - Preliminary No growth in 4 days 02/10/18 02:50 Blood - Peripheral Anaerobic Blood Culture - Preliminary No growth in 4 days 02/10/18 02:50 Blood - Peripheral Aerobic Blood Culture - Preliminary No growth in 4 days 02/10/18 02:50 Blood - Peripheral Anaerobic Blood Culture - Preliminary No growth in 4 days - Procedures None Assessment and Plan - Plan 87-year-old man with Metabolic encephalopathy-improved Likely secondary to bronchitis versus other-improving Continue with current IV fluid hydration but decrease rate, IV antibiotics Mild leukocytosis-Resolved Dehydration -resolved 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 Switch to p.o. antibiotic February 16, 2018 Continue prednisone 20mg daily, however discontinue prednisone on February DuoNeb as needed +schedule Hypertension Labile BP Initiate treatment with hydralazine 25 mg p.o. twice daily February 15, 2018 Continue triamterene/hydrochlorothiazide. Continue to hold lisinopril Continue physical therapy and occupational therapy Discharge Planning: Discharge planning possible to [facility]
[2018-02-15] MEDS: hydrALAZINE 25 MG Tablet PO SCH ×2 (10:55→20:07)
[2018-02-15] MEDS: Sod Chloride 0.9% Inj 1,000 ML IV.CONT SCH (10:57)
[2018-02-16 07:02] LABS: Baso # (Auto) 0.1 th/mm3 (0.0-0.2); Baso % (Auto) 1.1 % (0.0-2.0); Eos # (Auto) 0.2 th/mm3 (0.0-0.4); Eos % (Auto) 1.6 % (0.0-4.0); Hematocrit 37.8 % (39.0-51.0); Hemoglobin 13.1 gm/dL (13.0-17.0); Lymph # (Auto) 3.1 th/mm3 (1.0-4.8); Lymph % (Auto) 31.6 % (9.0-44.0); Mean Corpuscular HGB Conc 34.7 % (32.0-36.0); Mean Corpuscular Hemoglobin 30.6 pg (27.0-34.0); Mean Platelet Volume 9.4 fL (7.0-11.0); Mono # (Auto) 0.6 th/mm3 (0.0-0.9); Mono % (Auto) 6.1 % (0.0-8.0); Neut # (Auto) 5.8 th/mm3 (1.8-7.7); Neut % (Auto) 59.6 % (16.0-70.0); Platelet Count 257 th/mm3 (150-450); Red Blood Count 4.29 mil/mm3 (4.50-5.90); Red Cell Distribution Width 13.9 % (11.6-17.2); White Blood Count 9.7 th/mm3 (4.0-11.0)
[2018-02-16 07:25] LABS: Alanine Aminotransferase 42 U/L (12-78); Albumin 2.8 g/dL (3.4-5.0); Anion Gap 10 meq/L (5-15); Aspartate Aminotransferase 47 U/L (15-37); Blood Urea Nitrogen 35 mg/dL (7-18); Calcium 8.7 mg/dL (8.5-10.1); Carbon Dioxide 27.3 meq/L (21.0-32.0); Chloride 105 meq/L (98-107); Glomerular Filtration Rate 39 mL/min (>89); Glucose,Random 150 mg/dL (74-106); Potassium 3.9 meq/L (3.5-5.1); Sodium 142 meq/L (136-145)
[2018-02-16 07:27] LABS: Alkaline Phosphatase 38 U/L (45-117); Creatine Kinase 688 U/L (39-308); Total Protein 6.3 g/dL (6.4-8.2)
[2018-02-16 07:45] LABS: CKMB Percent 0.4 % (0.0-4.0); Creatine Kinase MB 2.7 ng/mL (0.5-3.6)
--- NOTE | 2018-02-16 09:03 | P.PNIM ---
Subjective Interval history: Patient is a little difficult to wake today, however wakes alert and oriented x3. Denies any pain. Denies chest pain or shortness of breath. Physical Exam Vital signs: Vital Signs 02/15/18 12:00 02/15/18 14:58 02/15/18 16:00 Temperature 97.8 F 97.9 F Pulse Rate 54 L 53 L 47 L Respiratory Rate 20 16 20 Blood Pressure 140/82 142/78 H Pulse Oximetry 99 99 02/15/18 19:00 02/15/18 19:25 02/15/18 20:00 Temperature 98 F Pulse Rate 55 L 53 L Respiratory Rate 18 19 Blood Pressure 156/71 H Pulse Oximetry 99 02/16/18 00:00 02/16/18 00:28 02/16/18 04:00 Temperature 97.8 F 97.8 F Pulse Rate 51 L 43 L 47 L Respiratory Rate 19 Blood Pressure 152/82 H 187/82 H Pulse Oximetry 98 97 02/16/18 08:00 Temperature 97.4 F L Pulse Rate 40 L Respiratory Rate 18 Blood Pressure 145/58 H Pulse Oximetry 96 Intake & Output 02/15/18 02/16/18 02/16/18 18:59 06:59 18:59 Intake Total 520 / 520 520 / 520 Output Total 460 / 460 Balance 60 / 60 520 / 520 Weight 102.3 kg Intake: IV 100 / 100 Rocephin Inj 1,000 MG In NS Inj 100 / 100 100 ML @ 200 mls/hr IV.SIG Q24H [facility] Rx#:[id number] Oral 520 / 520 420 / 420 Output: Urine 460 / 460 Other: # Incontinent Voids 2 Date of Last Bowel Movement 02/12/18 02/15/18 02/12/18 # Bowel Movements 1 # Incontinent Bowel Movements 2 Narrative: GENERAL: Patient sitting up in bed. Appears comfortable. Alert and oriented x3. SKIN: Warm and dry. HEAD: Normocephalic. EYES: No scleral icterus. No injection or drainage. NECK: Supple, trachea midline. No JVD or lymphadenopathy. CARDIOVASCULAR: Regular rate and rhythm without murmurs, gallops, or rubs. RESPIRATORY: Breath sounds equal bilaterally. No accessory muscle use. GASTROINTESTINAL: Abdomen soft, non-tender, nondistended. MUSCULOSKELETAL: No cyanosis, or edema. BACK: Nontender without obvious deformity. No CVA tenderness. - Urinary Catheter Management Indwelling Urethral Catheter Cath placed during this visit: yes Reason for continuing: Other continuation reason Insertion date: 02/10/18 Insertion time: 02:45 Results - Labs CBC & Chem 7: 02/16/18 06:44 02/16/18 06:44 Laboratory Results - last 24 hr 02/15/18 02/15/18 02/15/18 11:13 16:44 19:31 WBC RBC Hgb Hct MCV MCH MCHC RDW Plt Count MPV Neut % (Auto) Lymph % (Auto) [place] % (Auto) Eos % (Auto) Baso % (Auto) Neut # (Auto) Lymph # (Auto) [place] # (Auto) Eos # (Auto) Baso # (Auto) WBC Differential Differential Comment Sodium Potassium Chloride Carbon Dioxide Anion Gap BUN Creatinine Estimated GFR POC Glucose 228 H 272 H 346 H Random Glucose Calcium Total Bilirubin AST ALT Alkaline Phosphatase Total Creatine Kinase CK-MB (CK-2) CK-MB (CK-2) % Total Protein Albumin 02/16/18 02/16/18 02/16/18 06:44 06:44 07:43 WBC 9.7 RBC 4.29 L Hgb 13.1 Hct 37.8 L MCV 88.0 MCH 30.6 MCHC 34.7 RDW 13.9 Plt Count 257 MPV 9.4 Neut % (Auto) 59.6 Lymph % (Auto) 31.6 [place] % (Auto) 6.1 Eos % (Auto) 1.6 Baso % (Auto) 1.1 Neut # (Auto) 5.8 Lymph # (Auto) 3.1 [place] # (Auto) 0.6 Eos # (Auto) 0.2 Baso # (Auto) 0.1 WBC Differential . Differential Comment Auto diff final Sodium 142 Potassium 3.9 Chloride 105 Carbon Dioxide 27.3 Anion Gap 10 BUN 35 H Creatinine 1.69 H Estimated GFR 39 L POC Glucose 150 H Random Glucose 150 H Calcium 8.7 Total Bilirubin 0.3 AST 47 H ALT 42 Alkaline Phosphatase 38 L Total Creatine Kinase 688 H CK-MB (CK-2) 2.7 CK-MB (CK-2) % 0.4 Total Protein 6.3 L Albumin 2.8 L Microbiology 02/10/18 02:50 Blood - Peripheral Aerobic Blood Culture - Final No growth in 5 days 02/10/18 02:50 Blood - Peripheral Anaerobic Blood Culture - Final No growth in 5 days 02/10/18 02:50 Blood - Peripheral Aerobic Blood Culture - Final No growth in 5 days 02/10/18 02:50 Blood - Peripheral Anaerobic Blood Culture - Final No growth in 5 days - Procedures None Assessment and Plan - Plan 87-year-old man with //Metabolic encephalopathy-improved Likely secondary to bronchitis versus other-improving Continue with current IV fluid hydration but decrease rate, IV antibiotics //Mild leukocytosis-Resolved //Dehydration -resolved 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 Switch to p.o. antibiotic February 16, 2018 Continue prednisone 20mg daily, however discontinue prednisone on February DuoNeb as needed +schedule = 02/16. Taper prednisone. Switch to po antibiotics at discharge. //Hypertension Labile BP Initiate treatment with hydralazine 25 mg p.o. twice daily February 15, 2018 Continue triamterene/hydrochlorothiazide. Continue to hold lisinopril //Obstructive sleep apnea. Chronic. Likely increased somnolence today secondary to not having CPAP. Family will bring CPAP from home. //Continue physical therapy and occupational therapy Discussed Condition With: patient, Nurse, daughter at bedside
[2018-02-16] MEDS: Famotidine 20 MG Tablet PO SCH (09:23)
[2018-02-16] MEDS: Triamterene/HCTZ 37.5 MG/25 MG Tablet PO SCH (09:23)
[2018-02-16] MEDS: Azithromycin 250 MG Tablet PO SCH (09:24)
[2018-02-16] MEDS: Fenofibrate 48 MG Tablet PO SCH (09:24)
[2018-02-16] MEDS: hydrALAZINE 25 MG Tablet PO SCH (09:24)
[2018-02-16] MEDS: predniSONE 20 MG Tablet PO SCH (09:25)
[2018-02-16] MEDS: Enoxaparin Inj 30 MG/0.3 ML Syringe SQ SCH (09:25)
[2018-02-16] MEDS: Insulin NovoLOG Aspart Correctional Sugar Inj SQ SCH ×2 (09:26→12:48)
[2018-02-16] MEDS: Sodium Chloride 0.9% 2 ML Flush BID IV.FLUSH SCH (09:26)
[2018-02-16] MEDS: Sod Chloride 0.9% Inj 1,000 ML IV.CONT SCH (10:05)
[2018-02-16] MEDS ORDERED: predniSONE 20 MG Tablet PO SCH (11:00)
[2018-02-16 12:56] VITALS: TEMP 97.2; O2SAT 96
--- NOTE | 2018-02-16 13:03 | P.DS ---
Date of admission: 02/10/18 06:04 Primary care physician: Manuel Gilliland MD Brief History from admission: Patient is an 87-year-old male who lives in assisted living facility. He was noted to be more somnolent and more confused and unable to follow commands or instructions over the last few days. According to EMS the patient had a fever of 102 during transport. Past medical history according to the CUSTODIAL is history of hypertension and coronary artery disease and diabetes. Now that he has been given fluids and antibiotics. 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 Chest x-ray with no acute findings. Due to fever of 101.2, patient was started on broad-spectrum antibiotics with improvement. Patient was also found to have rhabdomyolysis with CK up to 11,981, however this improved with IV fluids. Patient was treated for bronchitis with 7 days of IV antibiotics, prednisone, and duo nebs. Patient's mental status returned to baseline, patient feeling better, however still with generalized weakness. Patient will need to follow-up with neurosurgery for evaluation of suprasellar mass. For problem based summary from most recent progress note, please see below. 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 Switch to p.o. antibiotic February 16, 2018 Continue prednisone 20mg daily, however discontinue prednisone on February DuoNeb as needed +schedule = 02/16. Taper prednisone. Switch to po antibiotics at discharge. //Hypertension Labile BP Initiate treatment with hydralazine 25 mg p.o. twice daily February 15, 2018 Continue triamterene/hydrochlorothiazide. Continue to hold lisinopril //Obstructive sleep apnea. Chronic. Likely increased somnolence today secondary to not having CPAP. Family will bring CPAP from home. //Continue physical therapy and occupational therapy Discussed Condition With: patient, Nurse, daughter at bedside - Time Spent with Patient Total time spent providing and/or coordinating discharge services: Greater than 30 minutes - Quality: VTE Deep Vein Thrombosis/Pulmonary Embolism Present on Admission: No Exam Vital signs: Vital Signs 02/15/18 14:58 02/15/18 16:00 02/15/18 19:00 Temperature 97.9 F Pulse Rate 53 L 47 L Respiratory Rate 16 20 Blood Pressure 142/78 H Pulse Oximetry 99 99 02/15/18 19:25 02/15/18 20:00 02/16/18 00:00 Temperature 98 F Pulse Rate 55 L 53 L 51 L Respiratory Rate 18 19 Blood Pressure 156/71 H Pulse Oximetry 02/16/18 00:28 02/16/18 04:00 02/16/18 08:00 Temperature 97.8 F 97.8 F 97.4 F L Pulse Rate 43 L 47 L 40 L Respiratory Rate 19 18 Blood Pressure 152/82 H 187/82 H 145/58 H Pulse Oximetry 98 97 96 02/16/18 11:52 02/16/18 12:00 Temperature 97.2 F L Pulse Rate 50 L Respiratory Rate 18 Blood Pressure 182/78 H Pulse Oximetry 94 L 96 Intake & Output 02/15/18 02/16/18 02/16/18 18:59 06:59 18:59 Intake Total 520 / 520 520 / 520 Output Total 460 / 460 Balance 60 / 60 520 / 520 Weight 102.3 kg Intake: IV 100 / 100 Rocephin Inj 1,000 MG In NS Inj 100 / 100 100 ML @ 200 mls/hr IV.SIG Q24H [facility] Rx#:[id number] Oral 520 / 520 420 / 420 Output: Urine 460 / 460 Other: # Incontinent Voids 2 Date of Last Bowel Movement 02/12/18 02/15/18 02/12/18 # Bowel Movements 1 # Incontinent Bowel Movements 2 Results Procedures completed during hospitalization: None Labs on day of discharge: Labs from last 24 hours 02/16/18 02/16/18 02/16/18 12:01 07:43 06:44 WBC RBC Hgb Hct MCV MCH MCHC RDW Plt Count MPV Neut % (Auto) Lymph % (Auto) [place] % (Auto) Eos % (Auto) Baso % (Auto) Neut # (Auto) Lymph # (Auto) [place] # (Auto) Eos # (Auto) Baso # (Auto) WBC Differential Differential Comment Sodium 142 Potassium 3.9 Chloride 105 Carbon Dioxide 27.3 Anion Gap 10 BUN 35 H Creatinine 1.69 H Estimated GFR 39 L POC Glucose 220 H 150 H Random Glucose 150 H Calcium 8.7 Total Bilirubin 0.3 AST 47 H ALT 42 Alkaline Phosphatase 38 L Total Creatine Kinase 688 H CK-MB (CK-2) 2.7 CK-MB (CK-2) % 0.4 Total Protein 6.3 L Albumin 2.8 L 02/16/18 02/15/18 02/15/18 06:44 19:31 16:44 WBC 9.7 RBC 4.29 L Hgb 13.1 Hct 37.8 L MCV 88.0 MCH 30.6 MCHC 34.7 RDW 13.9 Plt Count 257 MPV 9.4 Neut % (Auto) 59.6 Lymph % (Auto) 31.6 [place] % (Auto) 6.1 Eos % (Auto) 1.6 Baso % (Auto) 1.1 Neut # (Auto) 5.8 Lymph # (Auto) 3.1 [place] # (Auto) 0.6 Eos # (Auto) 0.2 Baso # (Auto) 0.1 WBC Differential . Differential Comment Auto diff final Sodium Potassium Chloride Carbon Dioxide Anion Gap BUN Creatinine Estimated GFR POC Glucose 346 H 272 H Random Glucose Calcium Total Bilirubin AST ALT Alkaline Phosphatase Total Creatine Kinase CK-MB (CK-2) CK-MB (CK-2) % Total Protein Albumin - Impressions ITS Impressions Head MRI 02/10/18 00:00 CONCLUSION: 1. 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 This study is limited due to the lack of intravenous contrast. 2. Mild atrophy and chronic small vessel ischemic change. Chest X-Ray 02/10/18 02:50 CONCLUSION: Negative examination. Head CT 02/10/18 02:50 CONCLUSION: 1. Pituitary and suprasellar mass 2. Recommend follow-up evaluation with contrasted pituitary protocol MRI . Discharge Plan - Discharge Disposition Patient Disposition: [facility] Inpatient - Discharge Condition Condition: Good - Discharge Order Discharge Orders: Discharge Order (Routine); Ordered 02/16/18 Ordered By: Rodrigo Oreilly - Discharge Details Anticipated Discharge Date: 02/16/18 - Physicians Team Primary Care Provider: Manuel Gilliland Attending Provider: Rodrigo Oreilly
[2018-02-16 13:38] VITALS: RESP 16
[2018-02-16 14:33] VITALS: BP 150/70; PULSE 60
== END 2018-02-16 15:30 ==
LOC: NEPE 02:29 → NEDA 06:04 → N04 13:55
PROVIDERS: ADMIT Internal Medicine; ATTEND Internal Medicine